=== PATIENT | male | born 1960 | race Caucasian/White ===

== ENCOUNTER → 2017-12-13 | Outpatient (CLI) | payer BC ==
[2017-12-13 10:11] LABS: Basophils # (A) 0.1 k/uL (0-0.2); Basophils % (A) 1 %; Eosinophils # (A) 0.5 k/uL (0-0.7); Eosinophils % (A) 5 %; HCT 43.9 % (39.0-53.0); HGB 14.7 gm/dL (13.0-17.5); Lymphocytes # (A) 2.1 k/uL (1.0-4.8); Lymphocytes % (A) 24 %; MCHC 33.5 g/dL (31.0-37.0); MCV 92.5 fL (80.0-100.0); Mean Platelet Volume 8.4; Monocytes # (A) 0.5 k/uL (0-1.0); Monocytes % (A) 6 %; Neutrophils # (A) 5.3 k/uL (1.3-7.7); Neutrophils % (A) 62 %; Platelet Count 242 k/uL (150-450); RBC 4.75 m/uL (4.30-5.90); RDW 12.3 % (11.5-15.5); WBC 8.5 k/uL (3.8-10.6)
[2017-12-13 10:36] LABS: ALT 38 U/L (21-72); AST 28 U/L (17-59); Alkaline Phosphatase 51 U/L (38-126); Anion Gap 10 mmol/L; Blood Urea Nitrogen 17 mg/dL (9-20); Calcium 9.6 mg/dL (8.4-10.2); Carbon Dioxide 28 mmol/L (22-30); Chloride 106 mmol/L (98-107); Cholesterol 132 mg/dL (<200); Glucose 86 mg/dL (74-99); HDL Cholesterol 35 mg/dL (40-60); LDL Cholesterol,Calculated 70 mg/dL (0-99); Potassium 4.8 mmol/L (3.5-5.1); Sodium 144 mmol/L (137-145); Total Bilirubin 0.6 mg/dL (0.2-1.3); Total Protein 6.9 g/dL (6.3-8.2); Triglycerides 136 mg/dL (<150)
[2017-12-13 10:49] LABS: T4, Free (Free Thyroxine) 1.05 ng/dL (0.78-2.19)
[2017-12-13 11:02] LABS: Prostate Specific Antigen 0.14 ng/mL (0.00-4.00)
== END | disposition home or self-care (01) ==
LOC: LABWHC1 08:52
PROVIDERS: ATTEND Internal Medicine
DX: Z00.00 Encounter for general adult medical examination without abnormal findings (principal); I10 Essential (primary) hypertension; E78.5 Hyperlipidemia, unspecified
CPT/HCPCS: 36415; 80053; 80061; 84153; 84439; 84443; 85025

== ENCOUNTER → 2019-01-09 | Outpatient (CLI) | payer BC ==
[2019-01-09 09:00] LABS: Basophils % (A) 0 %; Eosinophils # (A) 0.4 k/uL (0-0.7); Eosinophils % (A) 6 %; HGB 14.4 gm/dL (13.0-17.5); Lymphocytes # (A) 1.7 k/uL (1.0-4.8); Lymphocytes % (A) 25 %; MCV 93.9 fL (80.0-100.0); Mean Platelet Volume 8.1; Monocytes # (A) 0.3 k/uL (0-1.0); Monocytes % (A) 4 %; Neutrophils # (A) 4.3 k/uL (1.3-7.7); Neutrophils % (A) 62 %; Platelet Count 228 k/uL (150-450); RBC 4.79 m/uL (4.30-5.90); RDW 13.3 % (11.5-15.5); WBC 6.9 k/uL (3.8-10.6)
[2019-01-09 10:46] LABS: Erythrocyte Sedimentation Rate 10 mm/hr (0-15)
[2019-01-09 18:11] LABS: Albumin 4.3 g/dL (3.80-4.90); Albumin/Globulin Ratio 2.26 (1.60-3.17); Anion Gap 5.5 mmol/L (4.00-12.00); Calcium 9.5 mg/dL (8.7-10.3); Carbon Dioxide 28.5 mmol/L (21.6-31.8); Globulin 1.9 g/dL (1.6-3.3); Potassium 5.1 mmol/L (3.5-5.5); Total Bilirubin 0.5 mg/dL (0.3-1.2); Total Protein 6.2 g/dL (6.2-8.2)
[2019-01-09 18:18] LABS: T4, Free (Free Thyroxine) 1.2 ng/dL (0.80-1.80)
== END | disposition home or self-care (01) ==
LOC: LABWHC1 08:20
PROVIDERS: ATTEND Internal Medicine
DX: Z00.00 Encounter for general adult medical examination without abnormal findings (principal); E78.5 Hyperlipidemia, unspecified; I10 Essential (primary) hypertension; Z12.5 Encounter for screening for malignant neoplasm of prostate
CPT/HCPCS: 86803; 84439; 80061; 80053; 85652; 84443; 85025; 36415; G0103

== ENCOUNTER → 2019-03-23 | Outpatient (CLI) | payer BC ==
--- NOTE | 2019-03-23 20:01 | MR ---
EXAMINATION TYPE: MR knee LT wo con DATE OF EXAM: 03/23/2019 COMPARISON: Outside left knee x-ray March 12, 2019 HISTORY: Left knee pain per order. Pain and swelling per patient. TECHNIQUE: Multiplanar, multisequence images of the knee is performed without IV contrast. FINDINGS: MEDIAL MENISCUS: Increased linear signal anterior and posterior horns is present. Increased signal po sterior horn has oblique course extending to inferior articular surface sagittal image 25. Medial ext rusion of medial meniscus noted on coronal images. LATERAL MENISCUS: Anterior and posterior horns are intact without tear. CRUCIATE LIGAMENTS: The anterior and posterior cruciate ligaments are intact and unremarkable. COLLATERAL LIGAMENTS: The medial collateral ligament and lateral collateral ligament complex are inta ct. Mild to moderate increased fluid signal surrounds the medial collateral ligament. EXTENSOR MECHANISM: Visualized quadriceps and patellar tendons are intact. EFFUSION: No significant suprapatellar joint effusion. POPLITEAL CYST: Tiny popliteal/phillip cyst noted sagittal image 24. TRICOMPARTMENT SPACES: Mild tricompartment joint space loss without significant spurring CARTILAGE: No significant chondromalacia patella. Tricompartment articular cartilage is fairly well p reserved BONE MARROW SIGNAL: No focal abnormal marrow signal is appreciated. OTHER: No additional significant abnormality is appreciated. IMPRESSION: 1. Mild MCL sprain injury. 2. Oblique full-thickness tear posterior horn medial meniscus. 3. Intrasubstance tear anterior horn medial meniscus. 4. Mild tricompartmental degenerative changes. 5. Tiny popliteal cyst.
== END | disposition home or self-care (01) ==
LOC: RADMRIMAIN 16:31
PROVIDERS: ATTEND Orthopaedic Surgery
DX: S83.412A Sprain of medial collateral ligament of left knee, initial encounter (principal); S83.242A Other tear of medial meniscus, current injury, left knee, initial encounter; M17.12 Unilateral primary osteoarthritis, left knee; M71.22 Synovial cyst of popliteal space [Baker], left knee

== ENCOUNTER → 2019-03-30 | Outpatient (CLI) | payer BC ==
[2019-03-30 15:39] LABS: Basophils # (A) 0.1 k/uL (0-0.2); Basophils % (A) 1 %; Eosinophils # (A) 0.5 k/uL (0-0.7); Eosinophils % (A) 6 %; HCT 40.2 % (39.0-53.0); HGB 13.1 gm/dL (13.0-17.5); Lymphocytes % (A) 25 %; MCHC 32.6 g/dL (31.0-37.0); Mean Platelet Volume 7.9; Monocytes # (A) 0.4 k/uL (0-1.0); Monocytes % (A) 6 %; Neutrophils # (A) 4.9 k/uL (1.3-7.7); Neutrophils % (A) 61 %; Platelet Count 233 k/uL (150-450); RBC 4.22 m/uL (4.30-5.90); RDW 13.2 % (11.5-15.5); WBC 8.1 k/uL (3.8-10.6)
[2019-03-30 15:59] LABS: Potassium 5.1 mmol/L (3.5-5.1)
--- NOTE | 2019-03-30 16:02 | XR ---
EXAMINATION TYPE: XR chest 2V DATE OF EXAM: 03/30/2019 COMPARISON: NONE TECHNIQUE: PA and lateral views submitted. HISTORY: Presurgical testing FINDINGS: The lungs are clear and there is no pneumothorax, pleural effusion, or focal pneumonia. Hypertrophi c change of the spine. No overt failure. Biapical pleural thickening. IMPRESSION: 1. No acute process.
== END | disposition home or self-care (01) ==
LOC: LABWHC1 15:11
PROVIDERS: ATTEND Orthopaedic Surgery
DX: Z01.818 Encounter for other preprocedural examination (principal); M23.92 Unspecified internal derangement of left knee; Z01.812 Encounter for preprocedural laboratory examination
CPT/HCPCS: 36415; 71046; 80051; 85025; 93005

== ENCOUNTER 2019-04-06 07:15 | Day surgery (SDC) | payer BC ==
[2019-03-31 15:37] VITALS: BMI 32.1
--- NOTE | 2019-04-05 10:57 | HP ---
HISTORY AND PHYSICAL CHIEF COMPLAINT: Left knee pain. 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 It is worsening recently. He notes anterior and medial pain when getting up from a seated position along with prolonged walking. He notes intermittent giving way. He has tried medications without much relief. PAST MEDICAL HISTORY: Significant for hypertension and hypercholesterolemia. PAST SURGICAL HISTORY: Negative. CURRENT MEDICATIONS: 1. Ibuprofen. 2. Losartan. 3. Metoprolol. 4. Simvastatin. ALLERGIES: He denies drug allergies. FAMILY HISTORY: Significant for COPD. SOCIAL HISTORY: Significant for previous tobacco use in addition to social alcohol use. REVIEW OF SYSTEMS: Sixteen-point review of systems otherwise reviewed and is noncontributory. PHYSICAL EXAMINATION: On examination, the patient is approximately 5 feet 11 inches, 235 pounds of endomorphic habitus. HEENT exam is nonfocal. Neck is supple. He has painless passive motion of his left hip. Straight leg raise is negative. Active motion left knee -8 to 125 degrees of flexion. He has a trace effusion. He is tender about the medial joint line. Collaterals are stable, Jadiel's negative, Nir's elicits medial pain. His distal neurovascular exam appears intact in the left lower extremity. MRI report left knee 03/23/2019 shows a posterior medial meniscal tear. IMPRESSION: Internal derangement left knee with symptomatic medial meniscal tear. RECOMMENDATIONS: I talked to the patient at length regarding his condition along with treatment options. At this point, he is quite symptomatic, having pain and mechanical symptoms. After thorough discussion, he opts to proceed with surgery. We will plan to proceed with arthroscopic evaluation of his left knee with possible partial medial meniscectomy. We will likely perform that as an outpatient procedure. Risks and benefits were discussed at length in layman's terms. MMODL / IJN: [id number] /
[~2019-04-06 07:15] MED LIST: DEXAMETHASONE SOD PHOSPHATE 10 MG/ML 1 ML VIAL IV ONE; HYDROmorphone 0.5 MG/0.5 ML SYRINGE IVP PRN; LACTATED RINGERS 1,000 ML IV SCH; LIDOCAINE 1% 20 ML VIAL (10MG/ML) FOR IV START INTRADERMA PRN; MIDAZOLAM 2 MG/2 ML VIAL IV PRN; ONDANSETRON 4 MG/2 ML VIAL IVP ONE; SCOPOLAMINE 1.5MG/72HR PATCH TRANSDERM ONE
[2019-04-06] MEDS ORDERED: KETOROLAC 30 MG/ML 1 ML VIAL ONE (08:18)
[2019-04-06] MEDS ORDERED: fentaNYL (PF) 50 MCG/ML 2 ML AMP ONE (08:18)
[2019-04-06] MEDS ORDERED: hydrALAZINE HCL 20 MG/ML 1 ML VIAL ONE (08:18)
[2019-04-06] MEDS ORDERED: PROPOFOL 10 MG/ML 20 ML VIAL IV ONE (08:18)
[2019-04-06] MEDS ORDERED: LIDOCAINE 1% INJ 10MG/ML (20 ML MDV) ONE (08:18)
[2019-04-06] MEDS ORDERED: MIDAZOLAM 2 MG/2 ML VIAL ONE (08:18)
[2019-04-06] MEDS ORDERED: EPINEPHrine (PF) 1 ML in SODIUM CHLORIDE 0.9% IRRIGATIO 3,000 ML IRRIGATION ONE ×4 (08:40)
--- NOTE | 2019-04-06 09:03 | P.OP ---
Date of Procedure: 04/06/19 Preoperative Diagnosis: Left knee internal derangement Postoperative Diagnosis: Left knee posterior medial meniscal tear/reactive synovitis of the medial, lateral, and patellofemoral compartments Procedure(s) Performed: Left knee arthroscopic partial medial meniscectomy/partial synovectomy of the medial, lateral, and patellofemoral compartments Anesthesia: LESLEY Surgeon: Kaushik Jacobs Estimated Blood Loss (ml): 10 Pathology: none sent Condition: stable Disposition: PACU Indications for Procedure: The patient's 58-year-old male presents with progressive left knee pain and mechanical symptoms despite conservative measures. A discussion of the risks and benefits of operative intervention versus continued conservative measures was made with patient. He opted to proceed with surgery. Operative risks to include infection, neurovascular injury, development of blood clots, possible incomplete resolution of symptoms, possible worsening of symptoms and need for subsequent procedures was discussed. Informed consent was obtained. Operative Findings: As below Description of Procedure: The patient was brought to the operating room, and after induction of general anesthesia examined the left knee. Collaterals were stable, Jadiel was negative, and posterior drawer was negative. The left lower extremity was prepped and draped in a normal fashion. A superior lateral portal was made through a 3 mm skin incision superior and lateral to the patella. This was used for outflow. A lateral portal was made through a 5 mm vertical skin incision lateral to the patella tendon above the joint line. Diagnostic arthroscopy was performed. On inspection of the medial compartment, and oblique tear involving the posterior horn of the medial meniscus was noted. This was debrided back to stable base with straight baskets and a motorized shaver. Grade 2 chondral changes were noted involving the distal lateral portion the medial femoral condyle. Reactive synovitis involving anterior medial compartment was debrided with a motorized shaver. On inspection of the notch, the anterior cruciate ligament appeared to be intact. On inspection of the lateral compartment no significant cartilage or meniscal pathology was noted. Reactive synovitis involving anterior lateral compartment was debrided with a motorized shaver. On inspection of the patellofemoral articulation a 2 chondral changes were noted diffusely, however there was no loose chondral fragments. Reactive synovitis involving the patellofemoral articulation was debrided with motorized shaver. The gutters were clear debris. The knee was then thoroughly irrigated. The portals were closed with Steri-Strips. A sterile dressing was applied in addition to a compression stocking. The patient was awoken from general anesthesia and transferred to recovery room in good condition. Blood loss was estimated at 10 mL. No complications were incurred.
[2019-04-06 09:10] VITALS: TEMP 97.6
[2019-04-06] MEDS ORDERED: hydrALAZINE HCL 20 MG/ML 1 ML VIAL IVP ONE (09:12)
[2019-04-06 09:37] VITALS: RESP 18
[2019-04-06 10:02] VITALS: BP 160/95; PULSE 78
== END 2019-04-06 10:26 | disposition home or self-care (01) ==
LOC: OR 07:15
PROVIDERS: ATTEND Orthopaedic Surgery
DX: S83.242A Other tear of medial meniscus, current injury, left knee, initial encounter (principal); M65.862 Other synovitis and tenosynovitis, left lower leg; X58.XXXA Exposure to other specified factors, initial encounter; G47.33 Obstructive sleep apnea (adult) (pediatric); Z87.891 Personal history of nicotine dependence; I10 Essential (primary) hypertension; E78.00 Pure hypercholesterolemia, unspecified; Z79.1 Long term (current) use of non-steroidal anti-inflammatories (NSAID); Z79.899 Other long term (current) drug therapy; Z82.5 Family history of asthma and other chronic lower respiratory diseases
CPT/HCPCS: 29881; 29876; 84132; J2250; J0360; J1100; J0690; J2405; J0171; J2001; J3010; J1885; J2704

== ENCOUNTER → 2019-05-05 | Outpatient (CLI) | payer BC ==
[2019-05-05 16:59] LABS: African American GFR (CKD) 114.1 (60.0-200.0); Albumin 4.4 g/dL (3.80-4.90); Albumin/Globulin Ratio 2.32 (1.60-3.17); Anion Gap 7.3 mmol/L (4.00-12.00); BUN/Creat Ratio 17.5 Ratio (12.00-20.00); Calcium 9.7 mg/dL (8.7-10.3); Carbon Dioxide 29.7 mmol/L (21.6-31.8); Globulin 1.9 g/dL (1.6-3.3); Potassium 4.3 mmol/L (3.5-5.5); Total Bilirubin 0.8 mg/dL (0.2-1.2); Total Protein 6.3 g/dL (6.2-8.2)
== END | disposition home or self-care (01) ==
LOC: LABWHC1 08:45
PROVIDERS: ATTEND Internal Medicine
DX: I10 Essential (primary) hypertension (principal); E78.5 Hyperlipidemia, unspecified
CPT/HCPCS: 36415; 80053

== ENCOUNTER → 2019-05-11 | Outpatient (CLI) | payer BC ==
--- NOTE | 2019-05-11 20:04 | PN ---
PROGRESS NOTE This is a 58-year-old male patient coming in for a compliance check regarding obstructive sleep apnea. The patient was diagnosed having severe SELWYN with an AHI of 52 and the patient was treated with a CPAP pressure of 14 cm of water. Currently the patient is using an AirFit N30i medium-sized nose mask. He feels great. Sleep quality has improved. He is much more refreshed and alert during the day. Compliancy data shows an average CPAP use of 5.9 hours per night with CPAP use for more than 4 hours . Leak is 55 L/minute. AHI is down to 3.4. Sometimes he is feeling that the pressure is quite high and he is asking for adjustments. For the most part, he is able to tolerate the treatment without any major difficulties. His Victoria score is down to 7. REVIEW OF SYSTEMS: Fourteen-point review of systems was done. Positive findings were all mentioned above in the history of present illness. PHYSICAL EXAMINATION: VITAL SIGNS: BP is 133/84, pulse 84, respirations 16, temperature 98.4. Weight is 233. Saturation 98% on room air. GENERAL APPEARANCE: Calm, comfortable. HEAD: Atraumatic, normocephalic. Mallampati class IV. LUNGS: Clear to auscultation. HEART: Heart sounds are regular rate and rhythm. Normal S1, S2. No S3, S4. No murmurs. ABDOMEN: Soft, nontender. No organomegaly. EXTREMITIES: No edema. No cyanosis or clubbing. NEUROLOGIC: Alert and oriented x3. No focal neurological deficits. IMPRESSION: 1. Severe obstructive sleep apnea; apnea/hypopnea index of 52; and the patient is currently undergoing CPAP therapy at a pressure of 14; successful treatment and the patient is compliant. 2. Hypersomnia, recovered. 3. Hypertension. 4. Hyperlipidemia. 5. Degenerative arthritis. PLAN: 1. Switch this patient to an APAP, minimum of 7, maximum of 14, as to allow the patient to experience lower pressure if needed. 2. Continue the AirFit N30i medium-sized nose mask. 3. Encourage weight loss. 4. Implement good sleep hygiene measures. 5. Will continue to follow and make further recommendations if needed in the future. Otherwise, the patient will see me back in a year's time in followup. MMODL / IJN: [id number] /
== END ==
LOC: SLEEP 15:26
PROVIDERS: ATTEND Internal Medicine Critical Care Medicine
DX: G47.33 Obstructive sleep apnea (adult) (pediatric) (principal); I10 Essential (primary) hypertension; E78.5 Hyperlipidemia, unspecified; M19.90 Unspecified osteoarthritis, unspecified site; Z99.89 Dependence on other enabling machines and devices

== ENCOUNTER 2019-12-06 11:41 | Emergency (ER) | payer BC ==
[2019-12-06 12:08] LABS: Basophils % (A) 0 %; Eosinophils # (A) 0.3 k/uL (0-0.7); Eosinophils % (A) 3 %; HCT 43.6 % (39.0-53.0); HGB 14.6 gm/dL (13.0-17.5); Lymphocytes # (A) 1.9 k/uL (1.0-4.8); Lymphocytes % (A) 21 %; MCH 31.5 pg (25.0-35.0); MCHC 33.5 g/dL (31.0-37.0); Mean Platelet Volume 8.2; Monocytes # (A) 0.4 k/uL (0-1.0); Monocytes % (A) 5 %; Neutrophils # (A) 6.3 k/uL (1.3-7.7); Neutrophils % (A) 69 %; Platelet Count 249 k/uL (150-450); RBC 4.64 m/uL (4.30-5.90); RDW 12.1 % (11.5-15.5); WBC 9.2 k/uL (3.8-10.6)
[2019-12-06 12:09] LABS: Glucose,Whole Blood 169 mg/dL (75-99)
[2019-12-06 12:18] LABS: ALT 28 U/L (4-49); AST 26 U/L (17-59); African American GFR (CKD) >90 (>60 ml/min/1.73 sqM); Albumin 4.2 g/dL (3.5-5.0); Alkaline Phosphatase 52 U/L (38-126); Anion Gap 10 mmol/L; Blood Urea Nitrogen 16 mg/dL (9-20); Calcium 9.4 mg/dL (8.4-10.2); Carbon Dioxide 24 mmol/L (22-30); Chloride 102 mmol/L (98-107); Creatine Kinase 82 U/L (55-170); Glucose 158 mg/dL (74-99); Non-African American GFR(CKD) >90 (>60 ml/min/1.73 sqM); Potassium 3.9 mmol/L (3.5-5.1); Sodium 136 mmol/L (137-145); Total Bilirubin 0.5 mg/dL (0.2-1.3); Total Protein 7.2 g/dL (6.3-8.2)
[2019-12-06 12:25] LABS: INR 0.9 (<1.2); Partial Thromboplastin Time 22.4 sec (22.0-30.0); Prothrombin Time 9.5 sec (9.0-12.0)
[2019-12-06] MEDS ORDERED: levETIRAcetam IV 1,000 MG in SALINE 1 100ML.BAG IVPB STA (12:25)
--- NOTE | 2019-12-06 12:47 | XR ---
EXAMINATION TYPE: XR chest 2V DATE OF EXAM: 12/06/2019 COMPARISON: 03/30/2019 HISTORY: 59-year-old male confusion, altered mental status TECHNIQUE: AP and lateral views FINDINGS: Heart normal size. Aorta and pulmonary vascularity within normal limits. Low lung volumes and crowded vascular markings. Hazy densities related to patient body habitus and portable technique. No jos c onsolidation or pleural effusion seen. IMPRESSION: Some hypoventilatory changes. No definite acute cardiopulmonary process.
[2019-12-06] MEDS ORDERED: fentaNYL (PF) 50 MCG/ML 2 ML AMP IVP STA (12:57)
--- NOTE | 2019-12-06 12:57 | CT ---
EXAMINATION TYPE: CT brain wo con for TPA DATE OF EXAM: 12/06/2019 COMPARISON: None HISTORY: 59-year-old male Neuro deficit, acute, stroke suspected TECHNIQUE: Examination was done in axial plane without intravenous contrast. Coronal and sagittal r econstructions performed. CT DLP: 1096 mGycm Automated exposure control for dose reduction was used. FINDINGS: There is abnormal hypodensity with sulcal effacement and mass effect involving the left frontal lobe and frontoparietal junction. Mass effect causes asymmetric effacement of the left lateral ventricle. No effacement of basal subarachnoid cisterns. There is a somewhat rounded area measuring 2.9 cm along the posterior lateral left frontal lobe, axial image 41 that could represent edematous gyra. No midline shift. No acute intracranial hemorrhage. No extra-axial fluid collection. No hydrocephalus . Moderate lobulated mucosal thickening partially seen within the left maxillary sinus. Orbits and glob es are intact. Mastoid air cells are well pneumatized. IMPRESSION: Edematous change throughout the left frontal lobe and left frontoparietal junction. Mass effect parti ally effaces the left lateral ventricle. No midline shift or herniation. No acute intracranial hemorr martha. Findings could be secondary to acute MCA territory infarct or underlying mass with vasogenic ed divya.
--- NOTE | 2019-12-06 13:23 | CT ---
EXAMINATION TYPE: CT angio head neck DATE OF EXAM: 12/06/2019 COMPARISON: CT brain same day HISTORY: 59-year-old male neurologic deficits, acute stroke suspected. TECHNIQUE: Contiguous axial scanning of the head and neck performed with IV Contrast, patient injecte d with 65 mL of Isovue 370. Delayed images through the kidneys were obtained. Coronal/sagittal recons tructions performed. CT DLP: 742.2 mGycm Automated exposure control for dose reduction was used. FINDINGS: NECK: Aberrant direct takeoff of the left vertebral artery directly from the aortic arch. The vertebral art eries are codominant and patent throughout their course. The right common and internal carotid arteries are patent. Tortuous bilateral upper cervical internal carotid arteries. HEAD: Vertebral and basilar arteries are patent. Remainder of the posterior circulation is patent. Internal carotid arteries are patent. The M1 and M2 branches of the left MCA appear patent. Anterior cerebral arteries are patent. No aneurysmal change is seen. IMPRESSION: 1. NECK: ABERRANT LEFT VERTEBRAL ARTERY WHICH HAS ITS ORIGIN DIRECTLY FROM THE AORTIC ARCH. THE CAROT ID AND VERTEBRAL ARTERIES OF THE NECK ARE WIDELY PATENT. 2. HEAD: NO LARGE VESSEL INTRACRANIAL ARTERIAL OCCLUSION OR ANEURYSMAL CHANGE.
--- NOTE | 2019-12-06 13:28 | ED ---
Seizure HPI - General Chief Complaint: Seizure Stated Complaint: Seizure Time Seen by Provider: 12/06/19 11:41 Source: EMS Mode of arrival: EMS - History of Present Illness Initial Comments: The patient is a 59 year old male with past medical history of hypertension who presents to the emergency room with reported new onset seizure. provided the history. She states the patient was outside working on his car when she heard her knocking on the door. She went to the door and found the patient altered. He ended up landing onto the ground and a pushup position. She was foaming at the mouth and his eyes rolled back. He had full tonic-clonic shaking which lasted for a few minutes. She did call EMS. By the time EMS arrived the patient was post ictal. He was extremely confused to questioning. He did have some right-sided weakness during EMS transfer which quickly resolved. The patient does arrive alert. No history of CVA in the past. Denies previous seizure history. The patient does not drink. Denies illicit drug use. Vitals were stable. The remainder of the HPI is limited because the patient's current condition - Related Data Home Medications Medication Instructions Recorded Confirmed Metoprolol Succinate (ER) [Toprol 50 mg PO DAILY 10/17/15 12/06/19 Xl] Simvastatin 40 mg PO HS 10/17/15 12/06/19 Losartan/Hydrochlorothiazide 1 tab PO DAILY 12/06/19 12/06/19 [Losartan-Hctz 100-25 mg Tab] amLODIPine [Norvasc] 5 mg PO DAILY 12/06/19 12/06/19 Allergies Allergy/AdvReac Type Severity Reaction Status Date / Time No Known Allergies Allergy Verified 12/06/19 13:08 Review of Systems ROS Statement: Those systems with pertinent positive or pertinent negative responses have been documented in the HPI. ROS Other: All systems not noted in ROS Statement are negative. Past Medical History Past Medical History: GERD/Reflux, Hypertension History of Any Multi-Drug Resistant Organisms: None Reported Past Surgical History: Orthopedic Surgery Past Anesthesia/Blood Transfusion Reactions: No Reported Reaction Additional Past Anesthesia/Blood Transfusion Reaction / Comment(s): no hx blood transfusion Smoking Status: Never smoker - Past Family History Father Family Medical History: Myocardial Infarction ([place]) Additional Family Medical History / Comment(s): at age 49-[place] Mother Family Medical History: No Reported History Additional Family Medical History / Comment(s): . General Exam Limitations: altered mental status General appearance: alert, in no apparent distress Head exam: Present: atraumatic, normocephalic, normal inspection Eye exam: Present: normal appearance, PERRL, EOMI. Absent: scleral icterus, conjunctival injection, periorbital swelling ENT exam: Present: normal exam, mucous membranes moist Neck exam: Present: normal inspection. Absent: tenderness, meningismus, lymphadenopathy Respiratory exam: Present: normal lung sounds bilaterally. Absent: respiratory distress, wheezes, rales, rhonchi, stridor Cardiovascular Exam: Present: regular rate, normal rhythm, normal heart sounds. Absent: systolic murmur, diastolic murmur, rubs, gallop, clicks GI/Abdominal exam: Present: soft, normal bowel sounds. Absent: distended, t enderness, guarding, rebound, rigid Extremities exam: Present: normal inspection, full ROM, normal capillary refill. Absent: tenderness, pedal edema, joint swelling, calf tenderness Back exam: Present: normal inspection Neurological exam: Present: alert, other (The patient has significant expressive aphasia. No lateralizing deficits. No dysarthria. No facial droop. Strength is symmetric) Psychiatric exam: Present: normal affect, normal mood Skin exam: Present: warm, dry, intact, normal color. Absent: rash Course Vital Signs 12/06/19 12/06/19 12/06/19 11:44 11:55 12:54 Temperature 97.9 F 97.9 F 97.2 F L Pulse Rate 98 90 91 Respiratory 20 18 22 Rate Blood Pressure 162/98 165/89 152/97 O2 Sat by Pulse 97 98 95 Oximetry 12/06/19 15:26 Temperature Pulse Rate 89 Respiratory 18 Rate Blood Pressure 145/102 O2 Sat by Pulse 96 Oximetry Medical Decision Making - Medical Decision Making Upon arrival the patient is placed into room 5. A thorough history and physical exam was performed. The patient has no lateralizing deficits however he is profoundly expressive aphasic. I activated a code stroke and discussed the case with Dr. Gamez within 5 minutes of his arrival at 11:45 am. He did agree to stroke activation and requested the patient be sent for CT with angios performed. Peripheral IV was established. Laboratory studies were conducted. Laboratory studies reveal a lactic acid 2.1 with a glucose of 158. Remainder of the laboratory studies are normal. CT of the patient's brain demonstrates edematous changes throughout the left frontal lobe and left frontal parietal junction. Mass effect partially faces the left lateral ventricle. No midline shift or herniation. No acute intracranial hemorrhage. Findings could be secondary to acute MCA territory infarct or underlying mass with vasogenic edema. CT angiography of the brain demonstrates a apparent left vertebral artery which has its origin directly from the aortic arch. The carotid and vertebral arteries of the neck are widely patent. No large vessel intracranial arterial occlusion or aneurysmal change. Chest x-ray demonstrated some hyp oventilatory changes. No definite acute cardiac pulmonary process. I discussed the case once again at [address] Dc. He recommended against TPA as he does feel that there is a mass seen on CT. He is requesting stat MRI. I called the MRI department at this time and they are able to send in a tech. I discussed the case with again with Dr. Gamez at 1254 and made him aware that the patient is going to MRI.MRI was performed and I did review this study. It demonstrates masslike areas of increased T2/flare weighted signal within the left frontal parietal junction and right thalamus. There are also a couple smaller areas along the left paramedian frontal lobe. There is associated vasogenic edema with cervical effacement particularly on the left. Maybe early rightward subfalcine herniation. I discussed the results with Dr. Jesse liu once again at 4:01 PM. The patient was given 10 mg of Decadron. He did recommend transfer to [facility]. I called and discussed the case with Dr. Gonzalez who is the emergency medicine doctor. She is able to facilitate acceptance by Dr Cruz who is the internal medicine doctor. He is currently awaiting EMS arrival and a bed number. He is in stable condition without worsening neurologic condition. - Lab Data Result diagrams: 12/06/19 11:50 12/06/19 11:50 Lab Results 12/06/19 12/06/19 12/06/19 Range/Units 11:49 11:50 11:50 WBC 9.2 (3.8-10.6) k/uL RBC 4.64 (4.30-5.90) m/uL Hgb 14.6 (13.0-17.5) gm/dL Hct 43.6 (39.0-53.0) % MCV 94.0 (80.0-100.0) fL MCH 31.5 (25.0-35.0) pg MCHC 33.5 (31.0-37.0) g/dL RDW 12.1 (11.5-15.5) % Plt Count 249 (150-450) k/uL Neutrophils % 69 % Lymphocytes % 21 % Monocytes % 5 % Eosinophils % 3 % Basophils % 0 % Neutrophils # 6.3 (1.3-7.7) k/uL Lymphocytes # 1.9 (1.0-4.8) k/uL Monocytes # 0.4 (0-1.0) k/uL Eosinophils # 0.3 (0-0.7) k/uL Basophils # 0.0 (0-0.2) k/uL PT 9.5 (9.0-12.0) sec INR 0.9 (<1.2) APTT 22.4 (22.0-30.0) sec Sodium (137-145) mmol/L Potassium (3.5-5.1) mmol/L Chloride (98-107) mmol/L Carbon Dioxide (22-30) mmol/L Anion Gap mmol/L BUN (9-20) mg/dL Creatinine (0.66-1.25) mg/dL Est GFR (CKD-EPI)AfAm (>60 ml/min/1.73 sqM) Est GFR (CKD-EPI)NonAf (>60 ml/min/1.73 sqM) Glucose (74-99) mg/dL POC Glucose (mg/dL) 169 H (75-99) mg/dL POC Glu [facility] Supervisor ID Lynn Wills Lactic Ac Sepsis Rflx Plasma Lactic Acid Isaiah (0.7-2.0) mmol/L Calcium (8.4-10.2) mg/dL Total Bilirubin (0.2-1.3) mg/dL AST (17-59) U/L ALT (4-49) U/L Alkaline Phosphatase (38-126) U/L Creatine Kinase (55-170) U/L Troponin I (0.000-0.034) ng/mL Total Protein (6.3-8.2) g/dL Albumin (3.5-5.0) g/dL 04/06/20 04/06/20 04/06/20 Range/Units 11:50 11:50 11:50 WBC (3.8-10.6) k/uL RBC (4.30-5.90) m/uL Hgb (13.0-17.5) gm/dL Hct (39.0-53.0) % MCV (80.0-100.0) fL MCH (25.0-35.0) pg MCHC (31.0-37.0) g/dL RDW (11.5-15.5) % Plt Count (150-450) k/uL Neutrophils % % Lymphocytes % % Monocytes % % Eosinophils % % Basophils % % Neutrophils # (1.3-7.7) k/uL Lymphocytes # (1.0-4.8) k/uL Monocytes # (0-1.0) k/uL Eosinophils # (0-0.7) k/uL Basophils # (0-0.2) k/uL PT (9.0-12.0) sec INR (<1.2) APTT (22.0-30.0) sec Sodium 136 L (137-145) mmol/L Potassium 3.9 (3.5-5.1) mmol/L Chloride 102 (98-107) mmol/L Carbon Dioxide 24 (22-30) mmol/L Anion Gap 10 mmol/L BUN 16 (9-20) mg/dL Creatinine 0.85 (0.66-1.25) mg/dL Est GFR (CKD-EPI)AfAm >90 (>60 ml/min/1.73 sqM) Est GFR (CKD-EPI)NonAf >90 (>60 ml/min/1.73 sqM) Glucose 158 H (74-99) mg/dL POC Glucose (mg/dL) (75-99) mg/dL POC Glu [facility] Supervisor ID Lactic Ac Sepsis Rflx Plasma Lactic Acid Isaiah 2.1 H* (0.7-2.0) mmol/L Calcium 9.4 (8.4-10.2) mg/dL Total Bilirubin 0.5 (0.2-1.3) mg/dL AST 26 (17-59) U/L ALT 28 (4-49) U/L Alkaline Phosphatase 52 (38-126) U/L Creatine Kinase 82 (55-170) U/L Troponin I <0.012 (0.000-0.034) ng/mL Total Protein 7.2 (6.3-8.2) g/dL Albumin 4.2 (3.5-5.0) g/dL 12/06/19 12/06/19 Range/Units 12:22 15:32 WBC (3.8-10.6) k/uL RBC (4.30-5.90) m/uL Hgb (13.0-17.5) gm/dL Hct (39.0-53.0) % MCV (80.0-100.0) fL MCH (25.0-35.0) pg MCHC (31.0-37.0) g/dL RDW (11.5-15.5) % Plt Count (150-450) k/uL Neutrophils % % Lymphocytes % % Monocytes % % Eosinophils % % Basophils % % Neutrophils # (1.3-7.7) k/uL Lymphocytes # (1.0-4.8) k/uL Monocytes # (0-1.0) k/uL Eosinophils # (0-0.7) k/uL Basophils # (0-0.2) k/uL PT (9.0-12.0) sec INR (<1.2) APTT (22.0-30.0) sec Sodium (137-145) mmol/L Potassium (3.5-5.1) mmol/L Chloride (98-107) mmol/L Carbon Dioxide (22-30) mmol/L Anion Gap mmol/L BUN (9-20) mg/dL Creatinine (0.66-1.25) mg/dL Est GFR (CKD-EPI)AfAm (>60 ml/min/1.73 sqM) Est GFR (CKD-EPI)NonAf (>60 ml/min/1.73 sqM) Glucose (74-99) mg/dL POC Glucose (mg/dL) (75-99) mg/dL POC Glu [facility] Supervisor ID Lactic Ac Sepsis Rflx Y Plasma Lactic Acid Isaiah 1.3 (0.7-2.0) mmol/L Calcium (8.4-10.2) mg/dL Total Bilirubin (0.2-1.3) mg/dL AST (17-59) U/L ALT (4-49) U/L Alkaline Phosphatase (38-126) U/L Creatine Kinase (55-170) U/L Troponin I (0.000-0.034) ng/mL Total Protein (6.3-8.2) g/dL Albumin (3.5-5.0) g/dL - EKG Data EKG Comments: EKG demonstrates normal sinus rhythm with a ventricular rate of 83. GA interval 178. QRS 80. QTC 440. No acute ST segment elevations or depressions concerning for ischemic changes Disposition Clinical Impression: New onset seizure, Brain mass Disposition: OTHER INSTITUTION NOT DEFINED Condition: Serious Is patient prescribed a controlled substance at d/c from ED?: No Referrals: Jesusita Maurer MD [Primary Care Provider] - 1-2 days Time of Disposition: 16:28 - Out of Hospital Transfer - Req. Specs Out of Hospital Transfer - Requested Specifics: Neurological ICU (Keri Brewer)
--- NOTE | 2019-12-06 14:58 | MR ---
EXAMINATION TYPE: MR brain wo/w con DATE OF EXAM: 12/06/2019 COMPARISON: CT brain 12/06/2019 HISTORY: 59-year-old male Seizure, abnormal CT TECHNIQUE: Multiplanar, multisequence images of the brain and brainstem were acquired before and aft er administration of 12 mL IV Gadavist. Diffusion weighted imaging is performed. FINDINGS: No increased signal on diffusion-weighted imaging. Abnormal globular T2/FLAIR weighted signal involving the left frontoparietal junction extending down into the posterior aspect of the left temporal lobe measuring up to 4.3 cm AP by 3.2 cm wide by 5.4 c m craniocaudal. The associated vasogenic edema is present. A second dominant area of focal masslike enlargement and increased signal centered within the right t halamus measuring 3.3 x 2.2 x 3.2 cm A few additional areas of focal cortical increased signal within the left paramedian frontal lobe, ax ial image 22 and 24. Asymmetric partial flattening of the left lateral ventricle. There is associated sulcal effacement throughout the left cerebral hemisphere. Possible early rightwa rd subfalcine herniation. No transtentorial herniation or effacement of basal cisterns. No hydrocephalus or extra axial fluid collection seen. Lobulated mucosal thickening floor of the left maxillary sinus. The craniocervical junction is normal. Post contrast images demonstrate no evidence of pathologic enhancement. Dural venous sinuses are pat ent. The visualized sinuses are clear and the globes are intact. IMPRESSION: 1. No abnormal signal on DWI to support acute infarct. 2. Masslike areas of increased T2/FLAIR weighted signal within the left frontoparietal junction (5.4 x 4.3 x 3.2 cm), right thalamus (3.3 cm), and a couple smaller areas along the left paramedian fronta l lobe. These have no corresponding enhancement. Some differential considerations include multifocal intermediate grade glioma, PML, PRES, encephalitis, and demyelinating disease. 3. The lack of enhancement argues against metastatic disease, infectious cerebritis, and lymphoma. Fu rther clinical correlation recommended. 4. Associated vasogenic edema with sulcal effacement particularly on the left. There may be early rig htward subfalcine herniation.
[2019-12-06 15:26] VITALS: PULSE 89; RESP 18
[2019-12-06] MEDS ORDERED: DEXAMETHASONE SOD PHOSPHATE 10 MG/ML 1 ML VIAL IV STA (15:57)
[2019-12-06 18:55] VITALS: BP 157/98; TEMP 97.9
== END 2019-12-06 20:54 | disposition other institution (70) ==
LOC: EC 11:41
DX: G93.89 Other specified disorders of brain (principal); R56.9 Unspecified convulsions; I10 Essential (primary) hypertension; Z79.899 Other long term (current) drug therapy
CPT/HCPCS: 36415; 93005; 80053; 82550; 83605; 84484; 85025; 85610; 85730; 71046; 70496; 70450; 70498; 70553; 99285; 96365; 96375 ×2; J1100; J3010; J1953; A9585; Q9967

== ENCOUNTER 2020-04-06 08:39 | Emergency (ER) | payer BC ==
[2020-04-06 08:51] VITALS: RESP 18
[2020-04-06] MEDS ORDERED: SODIUM CHLORIDE 0.9% 1,000 ML IV ONE (09:10)
[2020-04-06 09:18] LABS: Albumin 4.1 g/dL (3.5-5.0); Calcium 9.5 mg/dL (8.4-10.2); Potassium 4.3 mmol/L (3.5-5.1); Total Bilirubin 1.2 mg/dL (0.2-1.3)
[2020-04-06 09:22] LABS: Basophils % (A) 0 %; Eosinophils % (A) 0 %; HGB 15.2 gm/dL (13.0-17.5); Lymphocytes # (A) 0.5 k/uL (1.0-4.8); Lymphocytes % (A) 5 %; MCH 31.7 pg (25.0-35.0); MCHC 33.8 g/dL (31.0-37.0); MCV 93.8 fL (80.0-100.0); Monocytes # (A) 0.6 k/uL (0-1.0); Monocytes % (A) 6 %; Neutrophils # (A) 9.6 k/uL (1.3-7.7); Neutrophils % (A) 89 %; Platelet Count 185 k/uL (150-450); RDW 13.1 % (11.5-15.5); WBC 10.8 k/uL (3.8-10.6)
--- NOTE | 2020-04-06 09:25 | ED ---
General Adult HPI - General Chief complaint: Altered Mental Status Stated complaint: hypertension Time Seen by Provider: 04/06/20 08:45 Source: patient, EMS, RN notes reviewed, old records reviewed Mode of arrival: EMS Limitations: no limitations - History of Present Illness Initial comments: This is a 59-year-old male who presents emergency Department and glioblastoma and originally got radiation and chemo initially he took about a month off and then they gave him at home chemotherapy for 5 days which ended this past Friday. states ever since then he's becoming more and more fatigued to the point where he couldn't even get out of bed on his own this morning. also found him brushing his teeth but the toothbrush was about a foot from his face and he was brushing away. Patient is alert and oriented 3 and he has no complaints himself. Patient denies headache patient denies numbness weakness. Patient denies visual disturbance. Patient denies speech disturbance. Patient denies any chest pain difficulty breathing shortness of breath. Patient denies any fever chills or cough. Patient denies any abdominal pain patient denies nausea vomiting diarrhea. Patient is able to ablate previous a little unsteady on his feet which is his baseline. - Related Data Home Medications Medication Instructions Recorded Confirmed Metoprolol Succinate (ER) [Toprol 50 mg PO DAILY 10/17/15 04/06/20 Xl] Simvastatin 40 mg PO DAILY 10/17/15 04/06/20 Losartan/Hydrochlorothiazide 1 tab PO DAILY 12/06/19 04/06/20 [Losartan-Hctz 100-25 mg Tab] amLODIPine [Norvasc] 5 mg PO DAILY 12/06/19 04/06/20 Docusate [Colace] 100 mg PO DAILY 04/06/20 04/06/20 Omeprazole [PriLOSEC] 20 mg PO DAILY 04/06/20 04/06/20 levETIRAcetam [Keppra] 1,000 mg PO BID-W/MEALS 04/06/20 04/06/20 Previous Rx's Medication Instructions Recorded Dexamethasone [Decadron] 4 mg PO QAM #20 tablet 04/06/20 Allergies Allergy/AdvReac Type Severity Reaction Status Date / Time No Known Allergies Allergy Verified 04/06/20 11:11 Review of Systems ROS Statement: Those systems with pertinent positive or pertinent negative responses have been documented in the HPI. ROS Other: All systems not noted in ROS Statement are negative. Past Medical History Past Medical History: GERD/Reflux, Hypertension Additional Past Medical History / Comment(s): Brain CA History of Any Multi-Drug Resistant Organisms: None Reported Past Surgical History: Orthopedic Surgery Past Anesthesia/Blood Transfusion Reactions: No Reported Reaction Additional Past Anesthesia/Blood Transfusion Reaction / Comment(s): no hx blood transfusion Past Psychological History: No Psychological Hx Reported Smoking Status: Never smoker Past Alcohol Use History: Occasional Past Drug Use History: None Reported - Past Family History Father Family Medical History: Myocardial Infarction ([place]) Additional Family Medical History / Comment(s): at age 49-[place] Mother Family Medical History: No Reported History Additional Family Medical History / Comment(s): . General Exam - General Exam Comments Initial Comments: GENERAL: Patient is well-developed and well-nourished. Patient is nontoxic and well- hydrated and is in no acute distress. ENT: Neck is soft and supple. No significant lymphadenopathy is noted. Oropharynx is clear. Moist mucous membranes. Neck has full range of motion without eliciting any pain. EYES: The sclera were anicteric and conjunctiva were pink and moist. Extraocular movements were intact and pupils were equal round and reactive to light. Eyelids were unremarkable. PULMONARY: Unlabored respirations. Good breath sounds bilaterally. No audible rales rhonchi or wheezing was noted. CARDIOVASCULAR: There is a regular rate and rhythm without any murmurs gallops or rubs. ABDOMEN: Soft and nontender with normal bowel sounds. SKIN: Skin is clear with no lesions or rashes and otherwise unremarkable. NEUROLOGIC: Patient is alert and oriented x3. Cranial nerves II through XII are grossly intact. Motor and sensory are also intact. Normal speech, volume and content. Symmetrical smile. MUSCULOSKELETAL: Normal extremities with adequate strength and full range of motion. No lower extremity swelling or edema. No calf tenderness. LYMPHATICS: No significant lymphadenopathy is noted PSYCHIATRIC: Normal psychiatric evaluation. Limitations: no limitations Course Vital Signs 04/06/20 04/06/20 04/06/20 08:43 08:57 08:58 Temperature 99.1 F Pulse Rate 111 H 105 H Pulse Rate [ 105 H Coating Engineer ] Respiratory 18 18 Rate Blood Pressure 134/96 O2 Sat by Pulse 95 93 L 95 Oximetry 04/06/20 10:11 Temperature Pulse Rate 95 Pulse Rate [ Coating Engineer ] Respiratory 18 Rate Blood Pressure 123/87 O2 Sat by Pulse 98 Oximetry Medical Decision Making - Medical Decision Making EKG shows sinus tachycardia at 108 bpm MO interval is on a 58 QRS 72 QT interval 344 QTC is 460. Patient's EKG shows no ST segment elevation or depression. CT of the scan shows progression of the metastatic brain tumor also showing some vasogenic edema. I called the patient's oncologist oncologist partner answered and he wanted the patient to get Decadron in the emergency department which was already done patient received 10 mg. The oncologist wanted the patient to take 8 mg of Decadron daily until he can follow-up with his regular oncologist. We also tested her urine because there was a note in the oncologist chart that the patient might have urinary tract infection. - Lab Data Result diagrams: 04/06/20 08:54 04/06/20 08:54 Lab Results 04/06/20 04/06/20 04/06/20 Range/Units 08:54 08:54 11:37 WBC 10.8 H (3.8-10.6) k/uL RBC 4.80 (4.30-5.90) m/uL Hgb 15.2 (13.0-17.5) gm/dL Hct 45.0 (39.0-53.0) % MCV 93.8 (80.0-100.0) fL MCH 31.7 (25.0-35.0) pg MCHC 33.8 (31.0-37.0) g/dL RDW 13.1 (11.5-15.5) % Plt Count 185 (150-450) k/uL Neutrophils % 89 % Lymphocytes % 5 % Monocytes % 6 % Eosinophils % 0 % Basophils % 0 % Neutrophils # 9.6 H (1.3-7.7) k/uL Lymphocytes # 0.5 L (1.0-4.8) k/uL Monocytes # 0.6 (0-1.0) k/uL Eosinophils # 0.0 (0-0.7) k/uL Basophils # 0.0 (0-0.2) k/uL Sodium 136 L (137-145) mmol/L Potassium 4.3 (3.5-5.1) mmol/L Chloride 100 (98-107) mmol/L Carbon Dioxide 21 L (22-30) mmol/L Anion Gap 15 mmol/L BUN 25 H (9-20) mg/dL Creatinine 1.20 (0.66-1.25) mg/dL Est GFR (CKD-EPI)AfAm 76 (>60 ml/min/1.73 sqM) Est GFR (CKD-EPI)NonAf 66 (>60 ml/min/1.73 sqM) Glucose 169 H (74-99) mg/dL Calcium 9.5 (8.4-10.2) mg/dL Total Bilirubin 1.2 (0.2-1.3) mg/dL AST 32 (17-59) U/L ALT 37 (4-49) U/L Alkaline Phosphatase 57 (38-126) U/L Total Protein 7.0 (6.3-8.2) g/dL Albumin 4.1 (3.5-5.0) g/dL Urine Color Yellow Urine Appearance Clear (Clear) Urine pH 6.0 (5.0-8.0) Ur Specific Jewett 1.029 (1.001-1.035) Urine Protein 1+ H (Negative) Urine Glucose (UA) Negative (Negative) Urine Ketones 1+ H (Negative) Urine Blood Negative (Negative) Urine Nitrite Negative (Negative) Urine Bilirubin Negative (Negative) Urine Urobilinogen <2.0 (<2.0) mg/dL Ur Leukocyte Esterase Negative (Negative) Urine WBC 1 (0-5) /hpf Ur Squamous Epith Cells <1 (0-4) /hpf Urine Bacteria Rare H (None) /hpf Urine Mucus Few H (None) /hpf Disposition Clinical Impression: Glioblastoma multiforme, Vasogenic brain edema Disposition: HOME SELF-CARE Condition: Good Prescriptions: Dexamethasone [Decadron] 4 mg PO QAM #20 tablet Is patient prescribed a controlled substance at d/c from ED?: No Referrals: Jesusita Maurer MD [Primary Care Provider] - 1-2 days Time of Disposition: 11:59
--- NOTE | 2020-04-06 09:39 | CT ---
EXAMINATION TYPE: CT brain wo con DATE OF EXAM: 04/06/2020 HISTORY: hypertension, altered mental status, history of brain CA CT DLP: 1070.4 mGycm. Automated Exposure Control for Dose Reduction was Utilized. TECHNIQUE: CT scan of the head is performed without contrast. COMPARISON: CT brain December 06, 2019. FINDINGS: There is no acute intracranial hemorrhage or midline shift identified. No new hydrocephal us. Globes are intact and visualized sinuses are clear. New fairly large area of vasogenic edema and sulcal effacement involving the right temporal lobe near axial image 19 along with additional area of involvement left frontal lobe near midline axial image 27. Enlarged left parietal slightly hyperdens e 3.4 cm lesion long axis axial image 26 with surrounding vasogenic edema. Small area of CSF superior to this coronal image 40. New hyperdensity and expansion of the right thalamus axial image 26. IMPRESSION: Findings consistent with metastatic brain cancer progression with new and enlarging areas of mass and mass effect/vasogenic edema noted. Findings can be better characterized with contrast-en hanced MRI if desired.
[2020-04-06] MEDS ORDERED: DEXAMETHASONE SOD PHOSPHATE 10 MG/ML 1 ML VIAL IV STA (09:40)
[2020-04-06] MEDS ORDERED: LIDOCAINE URO-JET JELLY 2% 5 ML KIT URETHRAL ONE (11:27)
[2020-04-06] MEDS ORDERED: SODIUM CHLORIDE 0.9% 1,000 ML IV STA (11:51)
[2020-04-06 11:57] LABS: Appearance,Urine Clear (Clear); Bacteria,Urine Rare /hpf; Bilirubin,Urine Negative (Negative); Blood,Urine Negative (Negative); Color,Urine Yellow; Glucose,Urine (UA) Negative (Negative); Ketones,Urine 1+ (Negative); Leukocyte Esterase,Urine Negative (Negative); Mucus,Urine Few /hpf; Nitrite,Urine Negative (Negative); Protein,Urine 1+ (Negative); Specific Gravity,Urine 1.029 (1.001-1.035); Squamous Epithelial Cell,Urine <1 /hpf (0-4); Urobilinogen,Urine <2.0 mg/dL (<2.0); WBC,Urine 1 /hpf (0-5)
[2020-04-06 12:12] VITALS: BP 123/82; PULSE 82; TEMP 98.5
== END 2020-04-06 12:15 | disposition home or self-care (01) ==
LOC: EC 08:39
DX: C71.9 Malignant neoplasm of brain, unspecified (principal); R00.0 Tachycardia, unspecified; K21.9 Gastro-esophageal reflux disease without esophagitis; I10 Essential (primary) hypertension; Z79.899 Other long term (current) drug therapy; Z92.21 Personal history of antineoplastic chemotherapy
CPT/HCPCS: 36415; 93005; 80053; 85025; 81001; 70450; 99285; 96374; 96361; J1100

== ENCOUNTER → 2020-04-17 | Outpatient (CLI) | payer BC ==
[2020-04-17 11:09] LABS: Basophils # (A) 0.1 k/uL (0-0.2); Basophils % (A) 0 %; Eosinophils % (A) 0 %; HCT 44.3 % (39.0-53.0); HGB 14.6 gm/dL (13.0-17.5); Lymphocytes % (A) 9 %; MCH 31.5 pg (25.0-35.0); MCHC 32.8 g/dL (31.0-37.0); MCV 95.9 fL (80.0-100.0); Monocytes # (A) 0.5 k/uL (0-1.0); Monocytes % (A) 4 %; Neutrophils # (A) 9.7 k/uL (1.3-7.7); Neutrophils % (A) 86 %; Platelet Count 237 k/uL (150-450); RBC 4.62 m/uL (4.30-5.90); RDW 13.2 % (11.5-15.5); WBC 11.3 k/uL (3.8-10.6)
[2020-04-17 16:27] LABS: African American GFR (CKD) 84.7 (60.0-200.0); Albumin/Globulin Ratio 1.82 (1.60-3.17); Anion Gap 7.6 mmol/L (4.00-12.00); BUN/Creat Ratio 20.91 Ratio (12.00-20.00); Calcium 9.5 mg/dL (8.7-10.3); Carbon Dioxide 26.4 mmol/L (21.6-31.8); Globulin 2.2 g/dL (1.6-3.3); Non-African American GFR(CKD) 73.1 (60.0-200.0); Potassium 4.1 mmol/L (3.5-5.5); Total Bilirubin 0.6 mg/dL (0.3-1.2); Total Protein 6.2 g/dL (6.2-8.2)
== END | disposition home or self-care (01) ==
LOC: LABWHC1 09:19
PROVIDERS: ATTEND Psychiatry & Neurology Neurology
DX: C71.9 Malignant neoplasm of brain, unspecified (principal); R39.89 Other symptoms and signs involving the genitourinary system
CPT/HCPCS: 36415; 80053; 85025

== ENCOUNTER 2020-09-18 16:27 | Inpatient (IN) | payer BC ==
--- NOTE | 2020-09-18 17:07 | ED ---
SOB HPI - General Chief Complaint: Shortness of Breath Stated Complaint: R/O PE Time Seen by Provider: 09/18/20 16:42 Source: patient Mode of arrival: wheelchair Limitations: no limitations - History of Present Illness Initial Comments: 60-year-old male past medical history of stage IV brain cancer who presents to the emergency department with reported shortness of breath. Patient was diagnosed in November this year and follows with a neurologist out of [facility]. He is currently undergoing chemotherapy. states that he has had some shortness of breath over the past week. He normally is fatigued after chemo however states that this is worse than normal. Patient did not receive his last chemo treatment because his platelets were low. They called their neurologist Dr. Harrell out [facility] who was worried about a PE because of his exertional dyspnea. She recommended that he get a CT which was supposed to be performed tomorrow. states that she found the patient slumped over in his chair and decided to bring him tonight. Patient denies a history of DVT or PE. He is not on any anticoagulation. He denies fevers, chills or cough. No lower extremity swelling. Denies previous history of cardiac disease. No ripping or tearing sensation to his back. Denies any numbness, tingling or weakness in his extremities. No other alleviating, precipitating or modifying factors - Related Data Home Medications Medication Instructions Recorded Confirmed Metoprolol Succinate (ER) [Toprol 50 mg PO DAILY 10/17/15 09/18/20 Xl] Simvastatin 40 mg PO W/SUPPER 10/17/15 09/18/20 Losartan/Hydrochlorothiazide 1 tab PO DAILY 12/06/19 09/18/20 [Losartan-Hctz 100-25 mg Tab] amLODIPine [Norvasc] 5 mg PO DAILY 12/06/19 09/18/20 Docusate [Colace] 100 - 200 mg PO DAILY PRN 04/06/20 09/18/20 Omeprazole [PriLOSEC] 20 mg PO DAILY 04/06/20 09/18/20 levETIRAcetam [Keppra] 1,000 mg PO BID-W/MEALS 04/06/20 09/18/20 Dexamethasone 0.5 mg PO DAILY 09/18/20 09/18/20 Sulfamethox-Tmp 800-160Mg [Bactrim 1 tab PO MOWEFR 09/18/20 09/18/20 DS 800-160 mg] dexAMETHasone [Dexamethasone] 3 mg PO DAILY 09/18/20 09/18/20 ondansetron HCL [Zofran] 8 mg PO TID PRN 09/18/20 09/18/20 Previous Rx's Medication Instructions Recorded Apixaban [Eliquis Starter Pack 0 mg PO DIRECTED 30 Days #1 pack 09/19/20 (for VTE)] Allergies Allergy/AdvReac Type Severity Reaction Status Date / Time No Known Allergies Allergy Verified 09/18/20 17:38 Review of Systems ROS Statement: Those systems with pertinent positive or pertinent negative responses have been documented in the HPI. ROS Other: All systems not noted in ROS Statement are negative. Past Medical History Past Medical History: Cancer, GERD/Reflux, Hypertension Additional Past Medical History / Comment(s): Brain CA History of Any Multi-Drug Resistant Organisms: None Reported Past Surgical History: Orthopedic Surgery Past Anesthesia/Blood Transfusion Reactions: No Reported Reaction Additional Past Anesthesia/Blood Transfusion Reaction / Comment(s): no hx blood transfusion Past Psychological History: No Psychological Hx Reported Smoking Status: Never smoker Past Alcohol Use History: Occasional Past Drug Use History: None Reported - Past Family History Father Family Medical History: Myocardial Infarction ([place]) Additional Family Medical History / Comment(s): at age 49-[place] Mother Family Medical History: No Reported History Additional Family Medical History / Comment(s): . General Exam Limitations: no limitations General appearance: alert, in no apparent distress Head exam: Present: atraumatic, normocephalic, normal inspection Eye exam: Present: normal appearance, PERRL, EOMI. Absent: scleral icterus, conjunctival injection, periorbital swelling ENT exam: Present: normal exam, mucous membranes moist Neck exam: Present: normal inspection. Absent: tenderness, meningismus, lymphadenopathy Respiratory exam: Present: normal lung sounds bilaterally. Absent: respiratory distress, wheezes, rales, rhonchi, stridor Cardiovascular Exam: Present: normal rhythm, tachycardia, normal heart sounds. Absent: systolic murmur, diastolic murmur, rubs, gallop, clicks GI/Abdominal exam: Present: soft, normal bowel sounds. Absent: distended, tenderness, guarding, rebound, rigid Extremities exam: Present: normal inspection, full ROM, normal capillary refill. Absent: tenderness, pedal edema, joint swelling, calf tenderness Back exam: Present: normal inspection Neurological exam: Present: alert, oriented X3, CN II-XII intact Psychiatric exam: Present: normal affect, normal mood Skin exam: Present: warm, dry, intact, normal color. Absent: rash Course Vital Signs 09/18/20 09/18/20 09/18/20 16:29 17:11 18:32 Temperature 98.5 F Pulse Rate 108 H 97 83 Pulse Rate [ Pulse Oximetery ] Respiratory 18 16 17 Rate Blood Pressure 85/70 92/70 110/77 Blood Pressure [Right Arm] O2 Sat by Pulse 97 100 96 Oximetry 09/18/20 09/19/20 09/19/20 20:00 00:00 02:00 Temperature 97.6 F 98.1 F Pulse Rate Pulse Rate [ 73 73 66 Pulse Oximetery ] Respiratory 16 16 17 Rate Blood Pressure Blood Pressure 128/102 105/81 [Right Arm] O2 Sat by Pulse 96 98 Oximetry - Reevaluation(s) Reevaluation #1: Spoke with Dr. Harrell at [facility] 09/18/20 19:21 Medical Decision Making - Medical Decision Making Upon arrival patient is placed into room 10. A thorough history and physical exam was performed. Peripheral IV is established the patient was given a liter bolus of normal saline because of his low blood pressures. Laboratory studies were conducted. CT of the patient's brain was performed because of his known brain cancer. CT of his chest was also performed due to concern for pulmonary embolism. Laboratory studies are reviewed. D-dimer 6.5. Lactic acid 2.3. Troponin is negative. BNP 250. CT the patient's brain demonstrates multifocal area of white matter edema consistent with tumor vasogenic edema. No significant mass effect. No significant change from previous computed to mography scan. CT of the patient's chest demonstrates large bilateral lower lobe pulmonary emboli with bilateral patchy pneumonia in the lower lobes. The results are discussed with the patient. Also discussed results with Dr. Bustos from neurology and the [facility] patient will be heparinized at this time without a bolus 1904 - spoke with Dr. Bustos who states the patient can be heparinized but no bolus and PTT goal is 45-60. 1920 - spoke with Dr. Harrell who is the patients Neurologist out of [facility]. Agrees patient can be heparinized without bolus. PTT goal 45-60. Pharmacy notified. Patient can go home on anticoagulation however DOES NOT WANT patient to go home on coumadin. Patient is to NOT RECEIVE CHEMO while hospitalized here. Should follow up with Dr. Harrell to restart chemo. Patient will be admitted to [facility]. Spoke with Kris who agreed to admit the patie nt. Patient did have improvement in his blood pressure. Will consult neurology, pulmonology and oncology. The patient's was updated. Patient agreed to the treatment plan and is currently awaiting a bed on the floor - Lab Data Result diagrams: 09/19/20 06:50 09/19/20 06:50 Lab Results 09/18/20 09/18/20 09/18/20 Range/Units 17:11 17:11 17:11 WBC 10.0 (3.8-10.6) k/uL RBC 3.69 L (4.30-5.90) m/uL Hgb 12.9 L (13.0-17.5) gm/dL Hct 37.3 L (39.0-53.0) % MCV 100.9 H (80.0-100.0) fL MCH 34.8 (25.0-35.0) pg MCHC 34.5 (31.0-37.0) g/dL RDW 13.8 (11.5-15.5) % Plt Count 125 L (150-450) k/uL MPV 7.9 Neutrophils % 93 % Lymphocytes % 2 % Monocytes % 4 % Eosinophils % 0 % Basophils % 1 % Neutrophils # 9.2 H (1.3-7.7) k/uL Lymphocytes # 0.2 L (1.0-4.8) k/uL Monocytes # 0.4 (0-1.0) k/uL Eosinophils # 0.0 (0-0.7) k/uL Basophils # 0.1 (0-0.2) k/uL Poikilocytosis Slight Macrocytosis Slight PT 9.3 (9.0-12.0) sec INR 0.8 (<1.2) APTT 20.8 L (22.0-30.0) sec D-Dimer 6.54 H (<0.60) mg/L FEU Sodium 135 L (137-145) mmol/L Potassium 4.5 (3.5-5.1) mmol/L Chloride 104 (98-107) mmol/L Carbon Dioxide 25 (22-30) mmol/L Anion Gap 6 mmol/L BUN 25 H (9-20) mg/dL Creatinine 0.84 (0.66-1.25) mg/dL Est GFR (CKD-EPI)AfAm >90 (>60 ml/min/1.73 sqM) Est GFR (CKD-EPI)NonAf >90 (>60 ml/min/1.73 sqM) Glucose 177 H (74-99) mg/dL Lactic Ac Sepsis Rflx Plasma Lactic Acid Isaiah (0.7-2.0) mmol/L Calcium 8.7 (8.4-10.2) mg/dL Total Bilirubin 0.7 (0.2-1.3) mg/dL AST 29 (17-59) U/L ALT 39 (4-49) U/L Alkaline Phosphatase 54 (38-126) U/L Troponin I (0.000-0.034) ng/mL NT-Pro-B Natriuret Pep pg/mL Total Protein 5.8 L (6.3-8.2) g/dL Albumin 2.9 L (3.5-5.0) g/dL 09/18/20 09/18/20 09/18/20 Range/Units 17:11 17:11 17:11 WBC (3.8-10.6) k/uL RBC (4.30-5.90) m/uL Hgb (13.0-17.5) gm/dL Hct (39.0-53.0) % MCV (80.0-100.0) fL MCH (25.0-35.0) pg MCHC (31.0-37.0) g/dL RDW (11.5-15.5) % Plt Count (150-450) k/uL MPV Neutrophils % % Lymphocytes % % Monocytes % % Eosinophils % % Basophils % % Neutrophils # (1.3-7.7) k/uL Lymphocytes # (1.0-4.8) k/uL Monocytes # (0-1.0) k/uL Eosinophils # (0-0.7) k/uL Basophils # (0-0.2) k/uL Poikilocytosis Macrocytosis PT (9.0-12.0) sec INR (<1.2) APTT (22.0-30.0) sec D-Dimer (<0.60) mg/L FEU Sodium (137-145) mmol/L Potassium (3.5-5.1) mmol/L Chloride (98-107) mmol/L Carbon Dioxide (22-30) mmol/L Anion Gap mmol/L BUN (9-20) mg/dL Creatinine (0.66-1.25) mg/dL Est GFR (CKD-EPI)AfAm (>60 ml/min/1.73 sqM) Est GFR (CKD-EPI)NonAf (>60 ml/min/1.73 sqM) Glucose (74-99) mg/dL Lactic Ac Sepsis Rflx Plasma Lactic Acid Isaiah 2.3 H* (0.7-2.0) mmol/L Calcium (8.4-10.2) mg/dL Total Bilirubin (0.2-1.3) mg/dL AST (17-59) U/L ALT (4-49) U/L Alkaline Phosphatase (38-126) U/L Troponin I <0.012 (0.000-0.034) ng/mL NT-Pro-B Natriuret Pep 250 pg/mL Total Protein (6.3-8.2) g/dL Albumin (3.5-5.0) g/dL 09/18/20 Range/Units 17:39 WBC (3.8-10.6) k/uL RBC (4.30-5.90) m/uL Hgb (13.0-17.5) gm/dL Hct (39.0-53.0) % MCV (80.0-100.0) fL MCH (25.0-35.0) pg MCHC (31.0-37.0) g/dL RDW (11.5-15.5) % Plt Count (150-450) k/uL MPV Neutrophils % % Lymphocytes % % Monocytes % % Eosinophils % % Basophils % % Neutrophils # (1.3-7.7) k/uL Lymphocytes # (1.0-4.8) k/uL Monocytes # (0-1.0) k/uL Eosinophils # (0-0.7) k/uL Basophils # (0-0.2) k/uL Poikilocytosis Macrocytosis PT (9.0-12.0) sec INR (<1.2) APTT (22.0-30.0) sec D-Dimer (<0.60) mg/L FEU Sodium (137-145) mmol/L Potassium (3.5-5.1) mmol/L Chloride (98-107) mmol/L Carbon Dioxide (22-30) mmol/L Anion Gap mmol/L BUN (9-20) mg/dL Creatinine (0.66-1.25) mg/dL Est GFR (CKD-EPI)AfAm (>60 ml/min/1.73 sqM) Est GFR (CKD-EPI)NonAf (>60 ml/min/1.73 sqM) Glucose (74-99) mg/dL Lactic Ac Sepsis Rflx Y Plasma Lactic Acid Isaiah (0.7-2.0) mmol/L Calcium (8.4-10.2) mg/dL Total Bilirubin (0.2-1.3) mg/dL AST (17-59) U/L ALT (4-49) U/L Alkaline Phosphatase (38-126) U/L Troponin I (0.000-0.034) ng/mL NT-Pro-B Natriuret Pep pg/mL Total Protein (6.3-8.2) g/dL Albumin (3.5-5.0) g/dL - EKG Data EKG Comments: EKG demonstrates normal sinus rhythm with a ventricular rate of 94. IA interval 160. QRS 70. QTC of 425. No acute ST segment elevations or depressions Critical Care Time Critical Care Time: Yes Critical Care Time: 32 minutes for initiation of heparin gtt and consultation with multiple s pecialists discussing this treatment in a patient with known brain cancer Disposition Clinical Impression: Brain cancer, Pulmonary embolism, Glioblastoma multiforme, DVT (deep venous thrombosis) Disposition: ADMITTED IP TO THIS [facility] Condition: Serious Is patient prescribed a controlled substance at d/c from ED?: No Decision to Admit Reason: Admit from EC Decision Date: 09/18/20 Decision Time: 19:01
[2020-09-18 17:25] LABS: Basophils # (A) 0.1 k/uL (0-0.2); Basophils % (A) 1 %; Eosinophils % (A) 0 %; HCT 37.3 % (39.0-53.0); HGB 12.9 gm/dL (13.0-17.5); Lymphocytes # (A) 0.2 k/uL (1.0-4.8); Lymphocytes % (A) 2 %; MCH 34.8 pg (25.0-35.0); MCHC 34.5 g/dL (31.0-37.0); MCV 100.9 fL (80.0-100.0); Macrocytosis Slight; Mean Platelet Volume 7.9; Monocytes # (A) 0.4 k/uL (0-1.0); Monocytes % (A) 4 %; Neutrophils # (A) 9.2 k/uL (1.3-7.7); Neutrophils % (A) 93 %; Platelet Count 125 k/uL (150-450); Poikilocytosis Slight; RBC 3.69 m/uL (4.30-5.90); RDW 13.8 % (11.5-15.5)
[2020-09-18 17:35] LABS: ALT 39 U/L (4-49); AST 29 U/L (17-59); African American GFR (CKD) >90 (>60 ml/min/1.73 sqM); Albumin 2.9 g/dL (3.5-5.0); Alkaline Phosphatase 54 U/L (38-126); Anion Gap 6 mmol/L; Blood Urea Nitrogen 25 mg/dL (9-20); Calcium 8.7 mg/dL (8.4-10.2); Carbon Dioxide 25 mmol/L (22-30); Chloride 104 mmol/L (98-107); Glucose 177 mg/dL (74-99); Non-African American GFR(CKD) >90 (>60 ml/min/1.73 sqM); Potassium 4.5 mmol/L (3.5-5.1); Sodium 135 mmol/L (137-145); Total Bilirubin 0.7 mg/dL (0.2-1.3); Total Protein 5.8 g/dL (6.3-8.2)
[2020-09-18 17:53] LABS: INR 0.8 (<1.2); Prothrombin Time 9.3 sec (9.0-12.0)
[2020-09-18 17:54] LABS: Partial Thromboplastin Time 20.8 sec (22.0-30.0)
[2020-09-18 17:55] LABS: D-Dimer 6.54 mg/L FEU (<0.60)
--- NOTE | 2020-09-18 18:01 | CT ---
EXAMINATION TYPE: CT brain wo con DATE OF EXAM: 09/18/2020 COMPARISON: 04/06/2020 HISTORY: Weakness. History of brain cancer. CT DLP: 1091.4 mGycm Automated exposure control for dose reduction was used. Exam performed without contrast. There is some patchy white matter edema involving the left parietal lobe. There is 12 mm rounded area of fluid density left parietal lobe convexity consistent with focal encephalomalacia. There is some white matter edema involving the right posterior temporal lobe. There is no midline shift. There is n o evidence of intracranial hemorrhage. There is some increased attenuation in the subependymal right parietal lobe adjacent to the lateral ventricle. There is some grade white matter 3 cm area of hypode nsity consistent with edema in the left frontal lobe convexity. Exam limited by lack of contrast. IMPRESSION: Multifocal area of white matter edema consistent with tumor and vasogenic edema. No significant mass effect. There is not a significant change overall compared to previous CT scan.
--- NOTE | 2020-09-18 18:15 | CT ---
EXAMINATION TYPE: CT chest angio for PE DATE OF EXAM: 09/18/2020 COMPARISON: None HISTORY: Shortness of breath. History of brain cancer. CT DLP: 701.1 mGycm Automated exposure control for dose reduction was used. CONTRAST: Performed with IV Contrast, patient injected with 100 mL of Isovue 370. Images were obtained from the thoracic inlet to the diaphragm with IV contrast and 3-D post processed images. There is some mild patchy peripheral infiltrate in the posterior lower lung whraton. There is some air space consolidation left lower lobe. Heart size is normal. There is no pericardial effusion. Thoracic aorta is intact. There is no aneurysm or dissection. There are numerous large filling defects in the lower lobe pulmonary arteries bilaterally. Heart size is normal. There is no enlargement of the right heart. The bony thorax is intact. Sternum is intact. Upper abdominal soft tissues are intact. IMPRESSION: Large bilateral lower lobe pulmonary emboli. Bilateral patchy pneumonia in the lower lobes. This exam was discussed with Traci Low at 6:15 PM.
[2020-09-18] MEDS ORDERED: NALOXONE 0.4 MG/ML 1 ML VIAL IV PRN (19:16)
[2020-09-18] MEDS ORDERED: HEPARIN SODIUM,PORCINE 5,000 UNIT/ML 1 ML VIAL IV PRN (19:22)
[2020-09-18] MEDS ORDERED: ONDANSETRON 4 MG TAB PO PRN (19:38)
[2020-09-18] MEDS: HEPARIN SOD,PORK IN 0.45% NACL 25,000 UNIT in 0.45% NACL 1 250ML.BAG IV SCH (19:41)
[2020-09-18] MEDS: SODIUM CHLORIDE 0.9% 1,000 ML IV SCH (19:43)
[2020-09-18] MEDS: levETIRAcetam 500 MG TAB PO SCH (20:07)
[2020-09-18] MEDS: SULFAMETHOX-TMP 800-160MG 1 EACH TAB PO SCH (20:08)
[2020-09-18] MEDS: ATORVASTATIN 20 MG TAB PO SCH (20:08)
--- NOTE | 2020-09-18 20:45 | US ---
EXAMINATION TYPE: US venous doppler duplex LE DATE OF EXAM: 09/18/2020 8:26 PM COMPARISON: NONE CLINICAL HISTORY: pe. PE per order. Patient on Heparin. SIDE PERFORMED: Bilateral TECHNIQUE: The lower extremity deep venous system is examined utilizing real time linear array sonog meek with graded compression, doppler sonography and color-flow sonography. VESSELS IMAGED: Common Femoral Vein Deep Femoral Vein Greater Saphenous Vein * Femoral Vein Popliteal Vein Small Saphenous Vein * Proximal Calf Veins (* superficial vessels) Right Leg: No evidence of DVT in veins imaged at this time from prox calf veins to CFV/GSV. Left Leg: There appears to be internal echoes throughout the left lower extremity veins from CFV miguel n through the prox calf veins. Vessels do not appear to compress. Color defect or no color flow visua lized within these vessels. IMPRESSION: There is evidence of acute deep vein thrombosis in the left leg. There is no evidence of deep vein thrombosis in the right leg.
[2020-09-19] MEDS: levETIRAcetam 500 MG TAB PO SCH ×2 (06:33→16:40)
[2020-09-19] MEDS: PANTOPRAZOLE 40 MG TABLET PO SCH (06:49)
[2020-09-19 08:00] LABS: Basophils % (A) 0 %; Eosinophils % (A) 0 %; HCT 32.3 % (39.0-53.0); HGB 11.2 gm/dL (13.0-17.5); Lymphocytes # (A) 0.6 k/uL (1.0-4.8); Lymphocytes % (A) 8 %; MCH 35.7 pg (25.0-35.0); MCHC 34.6 g/dL (31.0-37.0); MCV 103.4 fL (80.0-100.0); Macrocytosis Slight; Mean Platelet Volume 7.9; Monocytes # (A) 0.3 k/uL (0-1.0); Monocytes % (A) 4 %; Neutrophils # (A) 6.6 k/uL (1.3-7.7); Neutrophils % (A) 88 %; Platelet Count 115 k/uL (150-450); RBC 3.13 m/uL (4.30-5.90); RDW 13.6 % (11.5-15.5); WBC 7.5 k/uL (3.8-10.6)
[2020-09-19 08:25] LABS: INR 0.9 (<1.2); Partial Thromboplastin Time 60.9 sec (22.0-30.0); Prothrombin Time 9.4 sec (9.0-12.0)
[2020-09-19] MEDS: SODIUM CHLORIDE 0.9% 1,000 ML IV SCH ×2 (08:52→21:59)
[2020-09-19] MEDS: METOPROLOL SUCCINATE (ER) 50 MG TAB.ER.24H PO SCH (08:52)
[2020-09-19] MEDS: HEPARIN SOD,PORK IN 0.45% NACL 25,000 UNIT in 0.45% NACL 1 250ML.BAG IV SCH (08:53)
[2020-09-19] MEDS: DEXAMETHASONE PO SCH ×2 (08:55)
[2020-09-19] MEDS ORDERED: DEXAMETHASONE 1 MG PO SCH (09:00)
[2020-09-19 09:30] LABS: African American GFR (CKD) >90 (>60 ml/min/1.73 sqM); Anion Gap 5 mmol/L; Blood Urea Nitrogen 22 mg/dL (9-20); Calcium 8.5 mg/dL (8.4-10.2); Carbon Dioxide 26 mmol/L (22-30); Chloride 107 mmol/L (98-107); Glucose 90 mg/dL (74-99); Non-African American GFR(CKD) >90 (>60 ml/min/1.73 sqM); Potassium 4.3 mmol/L (3.5-5.1); Sodium 138 mmol/L (137-145)
--- NOTE | 2020-09-19 10:13 | P.CONS ---
History of Present Illness - Reason for Consult Consult date: 09/19/20 PE/ LLE DVT, GBM treatment Requesting physician: Traci Low - Chief Complaint SOB - History of Present Illness Mr. Sosa is a very pleasant man with history of giloblastoma multiforme, diagnosed 12/2019, treated with radiation and currently on oral treatment (most likely temodar) pn a monthly cycle. He was brought to ER by his due to progressive SOB/REJI at the direction of his Oncologist who they reported symptoms to. Pt was found to have bilateral PE and LLE DVT. He states his breathing is not as labored as it was prior to admit. No bleeding on heparin d rip. ER notes reviewed and they did discuss case with pt primary Oncologist who cleared pt for anticoagulation. Pt denies any other physical c/o at this time on a 14 point ROS. Review of Systems 14 point ROS is neg except as stated in HPI Past Medical History Past Medical History: Cancer, GERD/Reflux, Hypertension, Sleep Apnea/CPAP/BIPAP Additional Past Medical History / Comment(s): dx in december 2019 with Brain CA, currently going through radiation and chemo History of Any Multi-Drug Resistant Organisms: None Reported Past Surgical History: Orthopedic Surgery Additional Past Surgical History / Comment(s): brain biopsy Past Anesthesia/Blood Transfusion Reactions: No Reported Reaction Additional Past Anesthesia/Blood Transfusion Reaction / Comm: no hx blood transfusion Past Psychological History: No Psychological Hx Reported Smoking Status: Former smoker Past Alcohol Use History: Occasional Past Drug Use History: None Reported - Past Family History Father Family Medical History: Myocardial Infarction ([place]) Additional Family Medical History / Comment(s): at age 49-[place] Mother Family Medical History: No Reported History Additional Family Medical History / Comment(s): . Medications and Allergies Home Medications Medication Instructions Recorded Confirmed Type Metoprolol Succinate (ER) [Toprol 50 mg PO DAILY 10/17/15 09/18/20 History Xl] Simvastatin 40 mg PO W/SUPPER 10/17/15 09/18/20 History Losartan/Hydrochlorothiazide 1 tab PO DAILY 12/06/19 09/18/20 History [Losartan-Hctz 100-25 mg Tab] amLODIPine [Norvasc] 5 mg PO DAILY 12/06/19 09/18/20 History Docusate [Colace] 100 - 200 mg PO DAILY PRN 04/06/20 09/18/20 History Omeprazole [PriLOSEC] 20 mg PO DAILY 04/06/20 09/18/20 History levETIRAcetam [Keppra] 1,000 mg PO BID-W/MEALS 04/06/20 09/18/20 History Dexamethasone 0.5 mg PO DAILY 09/18/20 09/18/20 History Sulfamethox-Tmp 800-160Mg [Bactrim 1 tab PO MOWEFR 09/18/20 09/18/20 History DS 800-160 mg] dexAMETHasone [Dexamethasone] 3 mg PO DAILY 09/18/20 09/18/20 History ondansetron HCL [Zofran] 8 mg PO TID PRN 09/18/20 09/18/20 History Allergies Allergy/AdvReac Type Severity Reaction Status Date / Time No Known Allergies Allergy Verified 09/18/20 17:38 Physical Exam Vitals: Vital Signs Temp Pulse Pulse Resp BP BP Pulse Ox 09/19/20 07:52 97.6 F 81 18 145/92 96 09/19/20 03:57 97.4 F L 66 17 128/83 95 09/19/20 03:51 97.4 F L 66 17 128/83 95 09/19/20 02:00 66 17 09/19/20 00:00 98.1 F 73 16 105/81 98 09/18/20 20:00 97.6 F 73 16 128/102 96 09/18/20 18:32 83 17 110/77 96 09/18/20 17:11 97 16 92/70 100 09/18/20 16:29 98.5 F 108 H 18 85/70 97 Intake and Output 09/18/20 09/19/20 09/19/20 22:59 06:59 14:59 Intake Total 582.02 237.98 Output Total 0 Balance 582.02 237.98 Intake: IV 450 Sodium Chloride 0.9% 1, 450 000 ml @ 75 mls/hr IV . [id number] BERNIE Rx#:[id number] Intake, IV Titration 132.02 117.98 Amount Heparin Sod,Pork in 0.45% 132.02 117.98 NaCl 25,000 unit In 0.45 % NaCl 1 250ml.bag @ 18 UNITS/KG/HR 20.003 mls/hr IV .[id number] B[facility] Rx#: [id number] Oral 120 Output: Urine 0 Other: Voiding Method Urinal Urinal Urinal Weight 111.13 kg 115 kg - Constitutional General appearance: cooperative, no acute distress, obese - EENT Eyes: anicteric sclerae, EOMI ENT: hearing grossly normal, normal oropharynx - Neck Neck: no lymphadenopathy - Respiratory Respiratory: bilateral: CTA - Cardiovascular Rhythm: regular Heart sounds: normal: S1, S2 Abnormal Heart Sounds: no systolic murmur, no diastolic murmur, no rub, no S3 Gallop, no S4 Gallop, no click, no other leg Peripheral Edema: bilateral: Trace - Gastrointestinal General gastrointestinal: no absent bowel sounds, no decreased bowel sounds, no distended, no hepatomegaly, no hyperactive bowel sounds, normal bowel sounds, no organomegaly, no rigid, no scaphoid, soft, no splenomegaly, no tenderness, no umbilical hernia, no ventral hernia - Integumentary Integumentary: normal - Neurologic no gross deficits, strength equal bilaterally - Musculoskeletal Musculoskeletal: strength equal bilaterally - Psychiatric pt remembers quite a bit of his history, he is oriented to self, place and time Psychiatric: A&O x's 3, appropriate affect, intact judgment & insight Results CBC & Chem 7: 09/19/20 06:50 09/19/20 06:50 Labs: Abnormal Lab Results - Last 24 Hours (Table) 09/18/20 09/18/20 09/18/20 Range/Units 17:11 17:11 17:11 RBC 3.69 L (4.30-5.90) m/uL Hgb 12.9 L (13.0-17.5) gm/dL Hct 37.3 L (39.0-53.0) % MCV 100.9 H (80.0-100.0) fL MCH (25.0-35.0) pg Plt Count 125 L (150-450) k/uL Neutrophils # 9.2 H (1.3-7.7) k/uL Lymphocytes # 0.2 L (1.0-4.8) k/uL APTT 20.8 L (22.0-30.0) sec D-Dimer 6.54 H (<0.60) mg/L FEU Sodium 135 L (137-145) mmol/L BUN 25 H (9-20) mg/dL Glucose 177 H (74-99) mg/dL Plasma Lactic Acid Isaiah (0.7-2.0) mmol/L Total Protein 5.8 L (6.3-8.2) g/dL Albumin 2.9 L (3.5-5.0) g/dL 09/18/20 09/19/20 09/19/20 Range/Units 17:11 01:10 06:50 RBC 3.13 L (4.30-5.90) m/uL Hgb 11.2 L (13.0-17.5) gm/dL Hct 32.3 L (39.0-53.0) % MCV 103.4 H (80.0-100.0) fL MCH 35.7 H (25.0-35.0) pg Plt Count 115 L (150-450) k/uL Neutrophils # (1.3-7.7) k/uL Lymphocytes # 0.6 L (1.0-4.8) k/uL APTT 44.3 H (22.0-30.0) sec D-Dimer (<0.60) mg/L FEU Sodium (137-145) mmol/L BUN (9-20) mg/dL Glucose (74-99) mg/dL Plasma Lactic Acid Isaiah 2.3 H* (0.7-2.0) mmol/L Total Protein (6.3-8.2) g/dL Albumin (3.5-5.0) g/dL 09/19/20 09/19/20 Range/Units 06:50 06:50 RBC (4.30-5.90) m/uL Hgb (13.0-17.5) gm/dL Hct (39.0-53.0) % MCV (80.0-100.0) fL MCH (25.0-35.0) pg Plt Count (150-450) k/uL Neutrophils # (1.3-7.7) k/uL Lymphocytes # (1.0-4.8) k/uL APTT 60.9 H (22.0-30.0) sec D-Dimer (<0.60) mg/L FEU Sodium (137-145) mmol/L BUN 22 H (9-20) mg/dL Glucose (74-99) mg/dL Plasma Lactic Acid Isaiah (0.7-2.0) mmol/L Total Protein (6.3-8.2) g/dL Albumin (3.5-5.0) g/dL CT scan - chest: report reviewed CT Scan - head: report reviewed Venous US: report reviewed Assessment and Plan (1) Pulmonary embolism Current Visit: Yes Status: Acute Priority: High Code(s): I26.99 - OTHER PULMONARY EMBOLISM WITHOUT ACUTE COR PULMONALE SNOMED Code(s): 96693631 (2) DVT (deep venous thrombosis) Current Visit: Yes Status: Acute Priority: High Code(s): I82.409 - ACUTE EMBOLISM AND THOMBOS UNSP DEEP VN UNSP LOWER EXTREMITY SNOMED Code(s): 562733854 (3) Glioblastoma multiforme Narrative/Plan: Pt will return to his Primary Oncologist as [facility] to continue treatment Current Visit: No Status: Chronic Priority: Medium Code(s): C71.9 - MALIGNANT NEOPLASM OF BRAIN, UNSPECIFIED SNOMED Code(s): 612994915 Plan: Reviewed ER notes. Primary Onc was contacted. Heparin drip low intensity ordered. Recommendations to avoid comadin due to numerous medication i nteractions with pt treatment regimen. Discussed case with Case Mgmt, Eliquis Rx will be sent to [facility] for copay verification Attests: I have performed H&P, seen and examined pt, developed impression and plan of care. Discussed with dictator. Agree with documentation, any noguera as a scribe.
--- NOTE | 2020-09-19 10:26 | P.HPIM ---
History of Present Illness Patient is a pleasant 60-year-old male came in with complaints of shortness of breath found to have bilateral PE presently shortness of breath significantly improved does have history of COPD denied any chest pain at this time. Patient does have history of glioblastoma multiforme, undergoing radiation therapy and chemotherapy. He is also found to have a DVT of the left leg. Patient is presently on heparin drip. Patient denied any fever chills patient denied any cough. Patient had some infiltrate in the left lower lung wharton not consistent with pneumonia. Patient doesn't have any leukocytosis patient will be transitioned to [facility] later today and possibility of discharge tomorrow. Review of Systems REVIEW OF SYSTEMS: CONSTITUTIONAL: No fever, no malaise, no fatigue. HEENT: No recent visual problems or hearing problems. Denied any sore throat. CARDIOVASCULAR: No chest pain, orthopnea, PND, no palpitations, no syncope. PULMONARY: no hemoptysis. GASTROINTESTINAL: No diarrhea, no nausea, no vomiting, no abdominal pain. NEUROLOGICAL: No headaches, no weakness, no numbness. HEMATOLOGICAL: Denies any bleeding or petechiae. GENITOURINARY: Denies any burning micturition, frequency, or urgency. MUSCULOSKELETAL/RHEUMATOLOGICAL: Denies any joint pain, swelling, or any muscle pain. ENDOCRINE: Denies any polyuria or polydipsia. The rest of the 14-point review of systems is negative. Past Medical History Past Medical History: Cancer, GERD/Reflux, Hypertension, Sleep Apnea/CPAP/BIPAP Additional Past Medical History / Comment(s): dx in december 2019 with Brain CA, currently going through radiation and chemo History of Any Multi-Drug Resistant Organisms: None Reported Past Surgical History: Orthopedic Surgery Additional Past Surgical History / Comment(s): brain biopsy Past Anesthesia/Blood Transfusion Reactions: No Reported Reaction Additional Past Anesthesia/Blood Transfusion Reaction / Comment(s): no hx blood transfusion Past Psychological History: No Psychological Hx Reported Smoking Status: Former smoker Past Alcohol Use History: Occasional Past Drug Use History: None Reported - Past Family History Father Family Medical History: Myocardial Infarction ([place]) Additional Family Medical History / Comment(s): at age 49-[place] Mother Family Medical History: No Reported History Additional Family Medical History / Comment(s): . Medications and Allergies Home Medications Medication Instructions Recorded Confirmed Type Metoprolol Succinate (ER) [Toprol 50 mg PO DAILY 10/17/15 09/18/20 History Xl] Simvastatin 40 mg PO W/SUPPER 10/17/15 09/18/20 History Losartan/Hydrochlorothiazide 1 tab PO DAILY 12/06/19 09/18/20 History [Losartan-Hctz 100-25 mg Tab] amLODIPine [Norvasc] 5 mg PO DAILY 12/06/19 09/18/20 History Docusate [Colace] 100 - 200 mg PO DAILY PRN 04/06/20 09/18/20 History Omeprazole [PriLOSEC] 20 mg PO DAILY 04/06/20 09/18/20 History levETIRAcetam [Keppra] 1,000 mg PO BID-W/MEALS 04/06/20 09/18/20 History Dexamethasone 0.5 mg PO DAILY 09/18/20 09/18/20 History Sulfamethox-Tmp 800-160Mg [Bactrim 1 tab PO MOWEFR 09/18/20 09/18/20 History DS 800-160 mg] dexAMETHasone [Dexamethasone] 3 mg PO DAILY 09/18/20 09/18/20 History ondansetron HCL [Zofran] 8 mg PO TID PRN 09/18/20 09/18/20 History Apixaban [Eliquis Starter Pack 0 mg PO DIRECTED 30 Days #1 pack 09/19/20 Rx (for VTE)] Allergies Allergy/AdvReac Type Severity Reaction Status Date / Time No Known Allergies Allergy Verified 09/18/20 17:38 Physical Exam Vitals: Vital Signs Temp Pulse Pulse Resp BP BP Pulse Ox 09/19/20 07:52 97.6 F 81 18 145/92 96 09/19/20 03:57 97.4 F L 66 17 128/83 95 09/19/20 03:51 97.4 F L 66 17 128/83 95 09/19/20 02:00 66 17 09/19/20 00:00 98.1 F 73 16 105/81 98 09/18/20 20:00 97.6 F 73 16 128/102 96 09/18/20 18:32 83 17 110/77 96 09/18/20 17:11 97 16 92/70 100 09/18/20 16:29 98.5 F 108 H 18 85/70 97 Intake and Output 0109/19/20 09/19/20 22:59 06:59 14:59 Intake Total 582.02 237.98 Output Total 0 Balance 582.02 237.98 Intake: IV 450 Sodium Chloride 0.9% 1, 450 000 ml @ 75 mls/hr IV . [id number] BERNIE Rx#:[id number] Intake, IV Titration 132.02 117.98 Amount Heparin Sod,Pork in 0.45% 132.02 117.98 NaCl 25,000 unit In 0.45 % NaCl 1 250ml.bag @ 18 UNITS/KG/HR 20.003 mls/hr IV .[id number] BERNIE Rx#: [id number] Oral 120 Output: Urine 0 Other: Voiding Method Urinal Urinal Urinal Weight 111.13 kg 115 kg PHYSICAL EXAMINATION: GENERAL: The patient is alert and oriented x3, not in any acute distress. Obese HEENT: Pupils are round and equally reacting to light. EOMI. No scleral icterus. No conjunctival pallor. Normocephalic, atraumatic. No pharyngeal erythema. No thyromegaly. CARDIOVASCULAR: S1 and S2 present. No murmurs, rubs, or gallops. PULMONARY: Chest is clear to auscultation, no wheezing or crackles. ABDOMEN: Soft, nontender, nondistended, normoactive bowel sounds. No palpable organomegaly. MUSCULOSKELETAL: No joint swelling or deformity. EXTREMITIES: No cyanosis, clubbing, or pedal edema. NEUROLOGICAL: Gross neurological examination did not reveal any focal deficits. SKIN: No rashes. Results CBC & Chem 7: 09/19/20 06:50 09/19/20 06:50 Labs: Abnormal Lab Results - Last 24 Hours (Table) 09/18/20 09/18/20 09/18/20 Range/Units 17:11 17:11 17:11 RBC 3.69 L (4.30-5.90) m/uL Hgb 12.9 L (13.0-17.5) gm/dL Hct 37.3 L (39.0-53.0) % MCV 100.9 H (80.0-100.0) fL MCH (25.0-35.0) pg Plt Count 125 L (150-450) k/uL Neutrophils # 9.2 H (1.3-7.7) k/uL Lymphocytes # 0.2 L (1.0-4.8) k/uL APTT 20.8 L (22.0-30.0) sec D-Dimer 6.54 H (<0.60) mg/L FEU Sodium 135 L (137-145) mmol/L BUN 25 H (9-20) mg/dL Glucose 177 H (74-99) mg/dL Plasma Lactic Acid Isaiah (0.7-2.0) mmol/L Total Protein 5.8 L (6.3-8.2) g/dL Albumin 2.9 L (3.5-5.0) g/dL 09/18/20 09/19/20 09/19/20 Range/Units 17:11 01:10 06:50 RBC 3.13 L (4.30-5.90) m/uL Hgb 11.2 L (13.0-17.5) gm/dL Hct 32.3 L (39.0-53.0) % MCV 103.4 H (80.0-100.0) fL MCH 35.7 H (25.0-35.0) pg Plt Count 115 L (150-450) k/uL Neutrophils # (1.3-7.7) k/uL Lymphocytes # 0.6 L (1.0-4.8) k/uL APTT 44.3 H (22.0-30.0) sec D-Dimer (<0.60) mg/L FEU Sodium (137-145) mmol/L BUN (9-20) mg/dL Glucose (74-99) mg/dL Plasma Lactic Acid Isaiah 2.3 H* (0.7-2.0) mmol/L Total Protein (6.3-8.2) g/dL Albumin (3.5-5.0) g/dL 09/19/20 09/19/20 Range/Units 06:50 06:50 RBC (4.30-5.90) m/uL Hgb (13.0-17.5) gm/dL Hct (39.0-53.0) % MCV (80.0-100.0) fL MCH (25.0-35.0) pg Plt Count (150-450) k/uL Neutrophils # (1.3-7.7) k/uL Lymphocytes # (1.0-4.8) k/uL APTT 60.9 H (22.0-30.0) sec D-Dimer (<0.60) mg/L FEU Sodium (137-145) mmol/L BUN 22 H (9-20) mg/dL Glucose (74-99) mg/dL Plasma Lactic Acid Isaiah (0.7-2.0) mmol/L Total Protein (6.3-8.2) g/dL Albumin (3.5-5.0) g/dL Thrombosis Risk Factor Assmnt - Choose All That Apply Any of the Below Risk Factors Present?: Yes Each Factor Represents 1 point: Age 41-60 years, Obesity (BMI >25) Other Risk Factors: Yes Each Risk Factor Represents 2 Points: Malignancy Thrombosis Risk Factor Assessment Total Risk Factor Score: 4 Thrombosis Risk Factor Assessment Level: Moderate Risk Assessment and Plan Plan: -Acute bilateral PE: Patient is presently on IV heparin which will be transitioned to by mouth and Phil later today patient is imminently stable possibility of discharge tomorrow. Patient does have a glioblastoma multiforme, patient need to be on anticoagulation until after 3-6 months after he goes into relapse for glioblastoma -Glioblastoma multiforme he: No evidence of further intracranial bleed on the CAT scan that was done is as stated before he was started on anticoagulation. Patient was evaluated by oncology as well. Patient is on empiric Bactrim which will be continued. -COPD without any acute exacerbation -Sleep apnea uses CPAP machine which will be continued -Hypertension patient was restarted back on amlodipine depending on his blood pressures during this hospitalization can either continue or discontinue lisinopril/hydrochlorothiazide -GI prophylaxis with Protonix
[2020-09-19] MEDS ORDERED: MECLIZINE 12.5 MG TAB PO PRN (11:11)
--- NOTE | 2020-09-19 11:12 | P.CNNES ---
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 Some of the history obtained from medical records since patient could not provide full history and was having difficulty getting his words out. The patient has been having e xertional dyspnea. Patient is usually fatigued after chemo however he did not receive his last chemo treatment because of his platelets were low. Patient is not on any anticoagulation. Regarding the patient's brain cancer patient follows up at [facility] with Dr. Laurel Harrell. Patient home medication is Keppra 1000 mg 1 tablet twice a day. As well as the patient is on the dexamethasone 3.5mg daily. Is on the Omeprazole was all 20 mg daily Workup in the hospital consisted of: Initial vital signs: Blood pressure of 85/70, heart rate 108, temperature of 98.5 Fahrenheit oral, respiratory of 18 and pulse ox of 97% at room air. After 2 hours the patient's systolic blood pressure has been in the range of 100s to 150s. CT of the head is reported as multifocal areas of white matter edema consistent with tumor and vasogenic edema. No significant mass effect. There is no signi ficant change overall compared to previous computed tomography scan. The body and it is mentioned that there is some patchy white matter edema involving left parietal lobe at. There is 12 mm rounded area of fluid density in the left parietal lobe convexity consistent with focal encephalomalacia. There is some white matter edema involving the right posterior temporal lobe. There is no midline shift. There is no evidence of intracranial hemorrhage. There is some increased attenuation in the sup ependymal right parietal lobe adjacent to the lateral ventricle. There is some great white matter 3 cm area hypodensity consistent with edema in the left frontal lobe convexity. CT angio of the chest: Large bilateral lower lobe pulmonary emboli. Bilateral patchy pneumonia in the lower lobe. EKG is reported as normal sinus rhythm. Normal EKG. Venous duplex of bilateral lower extremity is reported as there is evidence of acute DVT in the left leg. There is no evidence of DVT right leg. MCV is 100.9. The hemoglobin is 12.9 hematocrit 37.3 platelets is 125 and a repeat is 115. Review of Systems Review of system: The 12 point system was reviewed and apparent positive and negative per HPI. Past Medical History Past Medical History: Cancer, GERD/Reflux, Hypertension Additional Past Medical History / Comment(s): dx in december 2019 with Brain CA, currently going through radiation and chemo History of Any Multi-Drug Resistant Organisms: None Reported Past Surgical History: Orthopedic Surgery Past Anesthesia/Blood Transfusion Reactions: No Reported Reaction Additional Past Anesthesia/Blood Transfusion Reaction / Comment(s): no hx blood transfusion Past Psychological History: No Psychological Hx Reported Smoking Status: Former smoker Past Alcohol Use History: Occasional Past Drug Use History: None Reported - Past Family History Father Family Medical History: Myocardial Infarction ([place]) Additional Family Medical History / Comment(s): at age 49-[place] Mother Family Medical History: No Reported History Additional Family Medical History / Comment(s): . Medications and Allergies Home Medications Medication Instructions Recorded Confirmed Type Metoprolol Succinate (ER) [Toprol 50 mg PO DAILY 10/17/15 09/18/20 History Xl] Simvastatin 40 mg PO W/SUPPER 10/17/15 09/18/20 History Losartan/Hydrochlorothiazide 1 tab PO DAILY 12/06/19 09/18/20 History [Losartan-Hctz 100-25 mg Tab] amLODIPine [Norvasc] 5 mg PO DAILY 12/06/19 09/18/20 History Docusate [Colace] 100 - 200 mg PO DAILY PRN 04/06/20 09/18/20 History Omeprazole [PriLOSEC] 20 mg PO DAILY 04/06/20 09/18/20 History levETIRAcetam [Keppra] 1,000 mg PO BID-W/MEALS 04/06/20 09/18/20 History Dexamethasone 0.5 mg PO DAILY 09/18/20 09/18/20 History Sulfamethox-Tmp 800-160Mg [Bactrim 1 tab PO MOWEFR 09/18/20 09/18/20 History DS 800-160 mg] dexAMETHasone [Dexamethasone] 3 mg PO DAILY 09/18/20 09/18/20 History ondansetron HCL [Zofran] 8 mg PO TID PRN 09/18/20 09/18/20 History Apixaban [Eliquis Starter Pack 0 mg PO DIRECTED 30 Days #1 pack 09/19/20 Rx (for VTE)] Allergies Allergy/AdvReac Type Severity Reaction Status Date / Time No Known Allergies Allergy Verified 09/18/20 17:38 Physical Examination - Vital Signs Vital Signs: Vital Signs Temp Pulse Pulse Resp BP BP Pulse Ox 09/19/20 07:52 97.6 F 81 18 145/92 96 09/19/20 03:57 97.4 F L 66 17 128/83 95 09/19/20 03:51 97.4 F L 66 17 128/83 95 09/19/20 02:00 66 17 09/19/20 00:00 98.1 F 73 16 105/81 98 09/18/20 20:00 97.6 F 73 16 128/102 96 09/18/20 18:32 83 17 110/77 96 09/18/20 17:11 97 16 92/70 100 09/18/20 16:29 98.5 F 108 H 18 85/70 97 Intake and Output 09/18/20 09/19/20 09/19/20 22:59 06:59 14:59 Intake Total 582.02 Output Total 0 Balance 582.02 Intake: IV 450 Sodium Chloride 0.9% 1, 450 000 ml @ 75 mls/hr IV . [id number] [facility] Rx#:[id number] Intake, IV Titration 132.02 Amount Heparin Sod,Pork in 0.45% 132.02 NaCl 25,000 unit In 0.45 % NaCl 1 250ml.bag @ 18 UNITS/KG/HR 20.003 mls/hr IV .[id number] [facility] Rx#: [id number] Output: Urine 0 Other: Voiding Method Urinal Urinal Weight 111.13 kg 115 kg GENERAL: The patient is lying in bed and is not in acute distress. CHEST: The heart rate is regular rate rhythm. No murmurs to auscultation. LUNG: Clear to auscultation bilaterally no wheezing noted throughout. Not labored breathing. ABDOMEN/GI: Bowel sounds present in all 4 quadrants. No tenderness to palpation throughout. NEUROLOGICAL: Higher mental function: The patient is awake, alert, oriented to self. He stated he was in the hospital but did not know the name of it. He correctly stated the year but not month. He stated it was December. Patient is following simple commands. Has motor aphasia. No neglect. Cranial nerves: The pupils are round, equal and reactive to light and accommodation. Visual wharton are full to confrontation throughout. Extraocular movement is intact no nystagmus is noted. Facial sensation is normal to touch throughout. The facial strength is normal throughout. Hearing is normal bi laterally to hand rub. Tongue is midline and moved [id number] without any difficulty. No dysarthria is noted. Shoulder shrug is normal bilaterally. Motor: Gait was attempted felt dizzy so had to abort it. The strength is 5 over 5 throughout. Normal tone and bulk. Cerebellum: Normal finger to nose bilaterally. Sensation: Sensation is normal to touch throughout. Reflexes (right/left): 2+ throughout Plantars: RIght is upgoing at baseline while left is downgoing. Results AST of 29 and ALT of 39. Coagulation study: PT of 9.3, INR 0.8, PTT of 20.8 and d-dimer of 6.54. The latest PTT is 60.9. - Laboratory Findings CBC and BMP: 09/19/20 06:50 09/19/20 06:50 Abnormal Lab Findings: Abnormal Labs 09/18/20 09/18/20 09/18/20 17:11 17:11 17:11 RBC 3.69 L Hgb 12.9 L Hct 37.3 L MCV 100.9 H MCH Plt Count 125 L Neutrophils # 9.2 H Lymphocytes # 0.2 L APTT 20.8 L D-Dimer 6.54 H Sodium 135 L BUN 25 H Glucose 177 H Plasma Lactic Acid Isaiah Total Protein 5.8 L Albumin 2.9 L 09/18/20 09/19/20 09/19/20 17:11 01:10 06:50 RBC 3.13 L Hgb 11.2 L Hct 32.3 L MCV 103.4 H MCH 35.7 H Plt Count 115 L Neutrophils # Lymphocytes # 0.6 L APTT 44.3 H D-Dimer Sodium BUN Glucose Plasma Lactic Acid Isaiah 2.3 H* Total Protein Albumin 09/19/20 06:50 RBC Hgb Hct MCV MCH Plt Count Neutrophils # Lymphocytes # APTT 60.9 H D-Dimer Sodium BUN Glucose Plasma Lactic Acid Isaiah Total Protein Albumin Assessment and Plan Assessment: This is a 60-year-old gentleman with medical history of Glioblastoma Multiforme undergoing radiation and chemotherapy per records that that presented to the emergency department on 09/18/2020 for shortness of breath for the past 1 week. The patient has been having exertional dyspnea. Glioblastoma Multiforme received radiation therapy with ongoing chemotherapy (multifocal tumor with vasogenic edema) Broca aphasia due to above Dyspnea due to Acute bilateral pulmonary embolism Acute DVT in the left leg Macrocytic anemia Thrombocytopenia Obstructive sleep apnea History of hypertension Hyperlipidemia Plan: I spoke with ED physician (Dr. Low) to avoid heparin boluses and to keep the PTT between 45-60. Also it seems that the ED physician contacted the patient's neurologist at [facility] (Dr. Harrell) who agreed that that and the patient can be heparinized without boluses. And to keep the PTT goal between 45-60. Patient was restarted on his home dose of Keppra 1 g twice a day The patient was restarted on his own dose of dexamethasone 3.5 g daily I started the patient on meclizine 12.5mg 1 tab bid PRN. Regarding the macrocytic anemia: I ordered vitamin B12 and folate level. Oncology team has been consulted. The patient is on Protinix 40mg daily for GI prophylaxis. Upon discharge the patient needs to follow-up with his neurologist at [facility] (Dr. Harrell) within 1-2 weeks. We'll defer the rest of the medical management to the primary team. Thank you for the consultation. Handy Bustos MD Neuro-Hospitalist Time with Patient: Greater than 30
--- NOTE | 2020-09-19 13:42 | P.CNPUL ---
History of Present Illness Consult date: 09/19/20 Reason for consult: pulmonary embolism History of present illness: 60-year-old male patient, known history of glioblastoma multiforme he diagnosed on December 2019 treated with radiation therapy and currently being treated with oral medication and the patient is receiving Temador once a month. He was brought into the emergency department because of acute onset shortness of breath. Denied having any pleurisy. No fever. No chills. No cough or sputum production. No hemoptysis. No swelling in lower extremity. D-dimer was elevated and subsequently the patient was given a Doppler of the lower extremity and the patient was found to have an acute DVT of the left lower extremity. No DVTs on the right. The CT angiogram showed large bilateral lower lobe pulmonary emboli and there is also patchy infiltration of the lung bases bilaterally posteriorly. There is some airspace disease in the left lower lobe. The patient is on IV heparin and the patient has a platelet count of 125 and dropped down to 115. The PTT is therapeutic at 60.9. No previous history of DVT or pulmonary embolism. He has been essentially sedentary because of an underlying brain tumor. No seizure activity. He is known to me from the sleep center. He has severe obstructive sleep apnea with an AHI of 52 and the patient is on APAP treatment with a maximum pressure of 14. He is also known to have COPD and hypertension. Review of Systems Constitutional: Reports fatigue, Reports weakness Eyes: denies as per HPI, denies blurred vision, denies bulging eye, denies decreased vision, denies diplopia, denies discharge, denies dry eye, denies irritation, denies itching, denies pain, denies photophobia, denies loss of peripheral vision, denies loss of vision, denies tunnel vision/blind spots Ears: deny: decreased hearing, ear discharge, earache, tinnitus Ears, nose, mouth and throat: Reports as per HPI Breasts: absent: as per HPI, gynecomastia Cardiovascular: Reports decreased exercise tolerance, Reports dyspnea on exertion Respiratory: Reports dyspnea Gastrointestinal: Reports as per HPI Genitourinary: Reports as per HPI Musculoskeletal: Reports as per HPI Musculoskeletal: absent: ankle pain, ankle stiffness, ankle swelling Integumentary: Reports as per HPI Neurological: Reports as per HPI Psychiatric: Reports as per HPI Endocrine: Reports as per HPI Hematologic/Lymphatic: Reports as per HPI Allergic/Immunologic: Reports as per HPI Past Medical History Past Medical History: Cancer, GERD/Reflux, Hypertension, Sleep Apnea/CPAP/BIPAP Additional Past Medical History / Comment(s): dx in december 2019 with Brain CA, currently going through radiation and chemo History of Any Multi-Drug Resistant Organisms: None Reported Past Surgical History: Orthopedic Surgery Past Anesthesia/Blood Transfusion Reactions: No Reported Reaction Additional Past Anesthesia/Blood Transfusion Reaction / Comment(s): no hx blood transfusion Past Psychological History: No Psychological Hx Reported Smoking Status: Former smoker Past Alcohol Use History: Occasional Past Drug Use History: None Reported - Past Family History Father Family Medical History: Myocardial Infarction ([place]) Additional Family Medical History / Comment(s): at age 49-[place] Mother Family Medical History: No Reported History Additional Family Medical History / Comment(s): . Medications and Allergies Home Medications Medication Instructions Recorded Confirmed Type Metoprolol Succinate (ER) [Toprol 50 mg PO DAILY 10/17/15 09/18/20 History Xl] Simvastatin 40 mg PO W/SUPPER 10/17/15 09/18/20 History Losartan/Hydrochlorothiazide 1 tab PO DAILY 12/06/19 09/18/20 History [Losartan-Hctz 100-25 mg Tab] amLODIPine [Norvasc] 5 mg PO DAILY 12/06/19 09/18/20 History Docusate [Colace] 100 - 200 mg PO DAILY PRN 04/06/20 09/18/20 History Omeprazole [PriLOSEC] 20 mg PO DAILY 04/06/20 09/18/20 History levETIRAcetam [Keppra] 1,000 mg PO BID-W/MEALS 04/06/20 09/18/20 History Dexamethasone 0.5 mg PO DAILY 09/18/20 09/18/20 History Sulfamethox-Tmp 800-160Mg [Bactrim 1 tab PO MOWEFR 09/18/20 09/18/20 History DS 800-160 mg] dexAMETHasone [Dexamethasone] 3 mg PO DAILY 09/18/20 09/18/20 History ondansetron HCL [Zofran] 8 mg PO TID PRN 09/18/20 09/18/20 History Apixaban [Eliquis Starter Pack 0 mg PO DIRECTED 30 Days #1 pack 09/19/20 Rx (for VTE)] Allergies Allergy/AdvReac Type Severity Reaction Status Date / Time No Known Allergies Allergy Verified 09/18/20 17:38 Physical Exam Vitals: Vital Signs Temp Pulse Pulse Resp BP BP Pulse Ox 09/19/20 07:52 97.6 F 81 18 145/92 96 09/19/20 03:57 97.4 F L 66 17 128/83 95 09/19/20 03:51 97.4 F L 66 17 128/83 95 09/19/20 02:00 66 17 09/19/20 00:00 98.1 F 73 16 105/81 98 09/18/20 20:00 97.6 F 73 16 128/102 96 09/18/20 18:32 83 17 110/77 96 09/18/20 17:11 97 16 92/70 100 09/18/20 16:29 98.5 F 108 H 18 85/70 97 Intake and Output 09/18/20 09/19/20 09/19/20 22:59 06:59 14:59 Intake Total 582.02 237.98 Output Total 0 Balance 582.02 237.98 Intake: IV 450 Sodium Chloride 0.9% 1, 450 000 ml @ 75 mls/hr IV . [id number] [facility] Rx#:[id number] Intake, IV Titration 132.02 117.98 Amount Heparin Sod,Pork in 0.45% 132.02 117.98 NaCl 25,000 unit In 0.45 % NaCl 1 250ml.bag @ 18 UNITS/KG/HR 20.003 mls/hr IV .[id number] [facility] Rx#: [id number] Oral 120 Output: Urine 0 Other: Voiding Method Urinal Urinal Urinal Weight 111.13 kg 115 kg GENERAL: The patient is alert and oriented x3, not in any acute distress. Obese Head exam was generally normal. There was no scleral icterus or corneal arcus. Mucous membranes were moist. HEENT: Pupils are round and equally reacting to light. EOMI. No scleral icterus. No conjunctival pallor. Normocephalic, atraumatic. No pharyngeal erythema. No thyromegaly. CARDIOVASCULAR: S1 and S2 present. No murmurs, rubs, or gallops. PULMONARY: Chest is clear to auscultation, no wheezing or crackles. ABDOMEN: Soft, nontender, nondistended, normoactive bowel sounds. No palpable organomegaly. MUSCULOSKELETAL: No joint swelling or deformity. EXTREMITIES: No cyanosis, clubbing, or pedal edema. NEUROLOGICAL: Gross neurological examination did not reveal any focal deficits. Examination of the skin revealed no evidence of significant rashes, suspicious appearing nevi or other concerning lesions. Results - Laboratory Findings CBC and BMP: 09/19/20 06:50 09/19/20 06:50 PT/INR, D-dimer PT 9.4 sec (9.0-12.0) 09/19/20 06:50 INR 0.9 (<1.2) 09/19/20 06:50 D-Dimer 6.54 mg/L FEU (<0.60) H 09/18/20 17:11 Abnormal lab findings: Abnormal Labs 09/18/20 09/18/20 09/18/20 17:11 17:11 17:11 RBC 3.69 L Hgb 12.9 L Hct 37.3 L MCV 100.9 H MCH Plt Count 125 L Neutrophils # 9.2 H Lymphocytes # 0.2 L APTT 20.8 L D-Dimer 6.54 H Sodium 135 L BUN 25 H Glucose 177 H Plasma Lactic Acid Isaiah Total Protein 5.8 L Albumin 2.9 L 09/18/20 09/19/20 09/19/20 17:11 01:10 06:50 RBC 3.13 L Hgb 11.2 L Hct 32.3 L MCV 103.4 H MCH 35.7 H Plt Count 115 L Neutrophils # Lymphocytes # 0.6 L APTT 44.3 H D-Dimer Sodium BUN Glucose Plasma Lactic Acid Isaiah 2.3 H* Total Protein Albumin 09/19/20 06:50 RBC Hgb Hct MCV MCH Plt Count Neutrophils # Lymphocytes # APTT 60.9 H D-Dimer Sodium BUN Glucose Plasma Lactic Acid Isaiah Total Protein Albumin - Diagnostic Findings Chest x-ray: image reviewed CT scan - chest: image reviewed Assessment and Plan Plan: 1 acute bilateral pulmonary embolism with a left lower extremity DVT, provoked by underlying malignancy and the patient has been diagnosed having glioblastoma multiforme of the brain 2 shortness of breath secondary to above 3 bibasilar pulmonary infiltrates/atelectasis secondary to above 4 glioblastoma multiforme, nonsurgical, being treated with oral chemotherapy 5 obstructive sleep apnea minute on CPAP therapy on outpatient basis 6 COPD 7 hypertension 8 thrombocytopenia, likely consumptive Plan Continue IV heparin and switch this patient ultimately to Eliquis as long as there is no contraindications knowing that he has a [employer] tumor. Monitor the platelet count and watch for any significant thrombocytopenia Obtain echocardiogram to assess LV function and RV function and pulmonary hypertension Oncology consultation regarding details of his brain tumor and treatment process We'll continue to follow
[2020-09-19] MEDS: ATORVASTATIN 20 MG TAB PO SCH (16:40)
[2020-09-19] MEDS: APIXABAN 5 MG TAB PO SCH (16:40)
[2020-09-20] MEDS: PANTOPRAZOLE 40 MG TABLET PO SCH (06:54)
[2020-09-20] MEDS: levETIRAcetam 500 MG TAB PO SCH ×2 (06:55→17:16)
[2020-09-20] MEDS: APIXABAN 5 MG TAB PO SCH ×2 (08:00→20:29)
[2020-09-20] MEDS: METOPROLOL SUCCINATE (ER) 50 MG TAB.ER.24H PO SCH (08:00)
[2020-09-20] MEDS: amLODIPine 5 MG TAB PO SCH (08:00)
[2020-09-20] MEDS: SULFAMETHOX-TMP 800-160MG 1 EACH TAB PO SCH (08:01)
[2020-09-20 08:37] LABS: INR 0.9 (<1.2); Prothrombin Time 9.7 sec (9.0-12.0)
--- NOTE | 2020-09-20 09:42 | P.PN ---
Subjective Progress Note Date: 09/20/20 60-year-old male patient, known history of glioblastoma multiforme he diagnosed on December 2019 treated with radiation therapy and currently being treated with oral medication and the patient is receiving Temador once a month. He was brought into the emergency department because of acute onset shortness of breath. Denied having any pleurisy. No fever. No chills. No cough or sputum production. No hemoptysis. No swelling in lower extremity. D-dimer was elevated and subsequently the patient was given a Doppler of the lower extremity and the patient was found to have an acute DVT of the left lower extremity. No DVTs on the right. The CT angiogram showed large bilateral lower lobe pulmonary emboli and there is also patchy infiltration of the lung bases bilaterally posteriorly. There is some airspace disease in the left lower lobe. The patient is on IV heparin and the patient has a platelet count of 125 and dropped down to 115. The PTT is therapeutic at 60.9. No previous history of DVT or pulmonary embolism. He has been essentially sedentary because of an underlying brain tumor. No seizure activity. He is known to me from the sleep center. He has severe obstructive sleep apnea with an AHI of 52 and the patient is on APAP treatment with a maximum pressure of 14. He is also known to have COPD and hypertension. On 09/20/2020 patient seen in follow-up on selective care unit, he is calm and comfortable, resting in bed, appears to be in no acute distress, any dyspnea, no chest pain, no hemoptysis, blood pressure is stable, vital signs have been stable on room air, pulse ox is 97%, no fever or chills, lung sounds are clear, diminished at the bases. Patient has been started on Eliquis, heparin drip has been discontinued. he is alert and oriented X3. Troponins were negative 3, BNP was 250. The chest showed no evidence of right heart enlargement. It also showed mild patchy peripheral infiltrates in the posterior lower lung wharton. There is no cough, no shortness of breath, no leukocytosis, no fever or chills Objective - Vital Signs Vital signs: Vital Signs Temp 97.5 F L 09/20/20 07:57 Pulse 75 09/20/20 07:57 Resp 16 09/20/20 07:57 BP 132/87 09/20/20 07:57 Pulse Ox 97 09/20/20 07:57 Intake & Output 09/19/20 09/20/20 09/20/20 18:59 06:59 18:59 Intake Total 477.98 237 Output Total 200 300 Balance 277.98 -300 237 Weight 112.2 kg Intake: Intake, IV Titration 117.98 Amount Heparin Sod,Pork in 0.45% 117.98 NaCl 25,000 unit In 0.45 % NaCl 1 250ml.bag @ 18 UNITS/KG/HR 20.003 mls/hr IV .[id number] [facility] Rx#: [id number] Oral 360 237 Output: Urine 200 300 Other: Voiding Method Urinal Urinal Urinal - Exam GENERAL EXAM: Alert,A pleasant, 60-year-old white male, on room air with pulse ox of 97%, comfortable in no apparent distress. HEAD: Normocephalic/atraumatic. EYES: Normal reaction of pupils, equal size. Conjunctiva pink, sclera white. NOSE: Clear with pink turbinates. THROAT: No erythema or exudates. NECK: No masses, no JVD, no thyroid enlargement, no adenopathy. CHEST: No chest wall deformity. Symmetrical expansion. LUNGS: Equal air entry with no crackles, wheeze, rhonchi or dullness. CVS: Regular rate and rhythm, normal S1 and S2, no gallops, no murmurs, no rubs ABDOMEN: Soft, nontender. No hepatosplenomegaly, normal bowel sounds, no guarding or rigidity. EXTREMITIES: No clubbing, no edema, no cyanosis, 2+ pulses and upper and lower extremities. MUSCULOSKELETAL: Muscle strength and tone normal. SPINE: No scoliosis or deformity SKIN: No rashes CENTRAL NERVOUS SYSTEM: Alert and oriented -3. No focal deficits, tone is normal in all 4 extremities. PSYCHIATRIC: Alert and oriented -3. Appropriate affect. Intact judgment and insight. - Labs CBC & Chem 7: 09/19/20 06:50 09/19/20 06:50 Assessment and Plan Plan: Assessment: #1. acute bilateral pulmonary embolism with a left lower extremity DVT, provoked by underlying malignancy and the patient has been diagnosed having glioblastoma multiforme of the brain #2. shortness of breath secondary to above #3. bibasilar pulmonary infiltrates/atelectasis secondary to above #4. glioblastoma multiforme, nonsurgical, being treated with oral chemotherapy #5. obstructive sleep apnea minute on CPAP therapy on outpatient basis #6. COPD #7. hypertension #8. thrombocytopenia, likely consumptive Plan: Continue Eliquis, the patient remains stable, we, maintaining stable O2 saturations on room air above 95%, troponins were negative 3, proBNP is within normal limits, no acute events overnight, vital signs have been stable, will obtain echocardiogram. We'll continue to follow I performed a history & physical examination of the patient and discussed their management with my nurse practitioner, aMribel Soto. I reviewed the nurse practitioner's note and agree with the documented findings and plan of care. Lung sounds are positive for diminished breath sounds at the bases. The findings and the impression was discussed with the patient. I attest to the documentation by the nurse practitioner. Time with Patient: Less than 30
--- NOTE | 2020-09-20 11:20 | ECHOF ---
Referral Reason:bilateral pulmonary embolism MEASUREMENTS -------- HEIGHT: 180.3 cm WEIGHT: 112.0 kg BP: 132/87 RVIDd: 3.2 cm (< 3.3) IVSd: 1.3 cm (0.6 - 1.1) LVIDd: 3.7 cm (3.9 - 5.3) LVPWd: 1.3 cm (0.6 - 1.1) IVSs: 1.7 cm LVIDs: 2.6 cm LVPWs: 1.7 cm LA Diam: 3.0 cm (2.7 - 3.8) Ao Diam: 3.4 cm (2.0 - 3.7) AV Cusp: 2.1 cm (1.5 - 2.6) MV EXCURSION: 13.644 mm (> 18.000) MV EF SLOPE: 52 mm/s (70 - 150) EPSS: 0.4 cm MV E Brian: 0.59 m/s MV DecT: 300 ms MV A Brian: 0.65 m/s MV E/A Ratio: 0.91 FINDINGS -------- Sinus rhythm. This was a technically adequate study. The left ventricular size is normal. There is mild concentric left ventricular hypertrophy. Overa ll left ventricular systolic function is normal with, an EF between 55 - 60 %. The right ventricle is normal in size. The left atrium is normal in size. The right atrial size is normal. The aortic valve is trileaflet, and appears structurally normal. No aortic stenosis or regurgitation. The mitral valve is normal. There is trace mitral regurgitation. The tricuspid valve was not well visualized. Trace tricuspid regurgitation present. The pulmonic valve was not well visualized. The aortic root size is normal. IVC Not well visulized. Echo free space may represent effusion or a pericardial fat pad. CONCLUSIONS -------- 1. There is mild concentric left ventricular hypertrophy. 2. Overall left ventricular systolic function is normal with, an EF between 55 - 60 %. 3. The aortic valve is trileaflet, and appears structurally normal. No aortic stenosis or regurgitati on. 4. There is trace mitral regurgitation. 5. Echo free space may represent effusion or a pericardial fat pad. PUBLIC INTERVIEWER: Bianca Lentz [facility]
--- NOTE | 2020-09-20 11:44 | P.PN ---
Subjective Progress Note Date: 09/20/20 The patient was seen at bedside and he feels the same today compared to yesterday. Denies of any new weakness, numbness or visual disturbance. Objective - Vital Signs Vital signs: Vital Signs Temp 97.5 F L 09/20/20 07:57 Pulse 75 09/20/20 07:57 Resp 16 09/20/20 07:57 BP 132/87 09/20/20 07:57 Pulse Ox 97 09/20/20 07:57 Intake & Output 09/19/20 09/20/20 09/20/20 18:59 06:59 18:59 Intake Total 477.98 237 Output Total 200 300 Balance 277.98 -300 237 Weight 112.2 kg Intake: Intake, IV Titration 117.98 Amount Heparin Sod,Pork in 0.45% 117.98 NaCl 25,000 unit In 0.45 % NaCl 1 250ml.bag @ 18 UNITS/KG/HR 20.003 mls/hr IV .[id number] [facility] Rx#: [id number] Oral 360 237 Output: Urine 200 300 Other: Voiding Method Urinal Urinal Urinal - Exam GENERAL: The patient is lying in bed and is not in acute distress. NEUROLOGICAL: Higher mental function: The patient is awake, alert, oriented to self and time. He stated he was at [facility]. Patient is following simple commands. Has motor aphasia. Has paraphrasic error. Some difficulty with repeat. No neglect. Cranial nerves: The pupils are round, equal and reactive to light and accommodation. Visual wharton are full to confrontation throughout. Extraocular movement is intact no nystagmus is noted. Facial sensation is normal to touch throughout. The facial strength is normal throughout. Hearing is normal bilaterally to hand rub. Tongue is midline and moved [id number] without any difficulty. No dysarthria is noted. Shoulder shrug is normal bilaterally. Motor: Gait was attempted felt dizzy so had to abort it. The strength is 5-/5 in bilateral hand gasfitter. Otherwise 5 over 5 throughout. Normal tone and bulk. Cerebellum: Normal finger to nose bilaterally. Sensation: Sensation is normal to touch throughout. Reflexes (right/left): 2+ throughout Plantars: RIght is upgoing at baseline while left is downgoing. - Labs CBC & Chem 7: 09/19/20 06:50 09/19/20 06:50 Assessment and Plan Assessment: This is a 60-year-old gentleman with medical history of Glioblastoma Multiforme undergoing radiation and chemotherapy per records that that presented to the emergency department on 09/18/2020 for shortness of breath for the past 1 week. The patient has been having exertional dyspnea. 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 Also it seems that the ED physician contacted the patient's neurologist at [facility] (Dr. Harrell) who agreed that that and the patient can be heparinized without boluses. And to keep the PTT goal between 45-60. Per patient's she stated the his neurologist notified her that she does not want him to be on Coumadin. Currrently the patient is on Eliquis 10mg 1 tab bid. Continue home dose of Keppra 1 g twice a day Continue home dose of dexamethasone 3.5 g daily On meclizine 12.5mg 1 tab bid PRN for dizziness Regarding the macrocytic anemia: Vitamin B12: 318 (which is low normal), therefore I started the patient on Vitamin B12 1000mcg daily. Pending RBC folate level. Oncology team are on board The patient is on Protinix 40mg daily for GI prophylaxis. Upon discharge the patient needs to follow-up with his neurologist at [facility] (Dr. Harrell) within 1-2 weeks. We'll defer the rest of the medical management to the primary team. No further work-up from neurology perspective. Handy Bustos MD Neuro-Hospitalist Time with Patient: Less than 30
[2020-09-20] MEDS: SODIUM CHLORIDE 0.9% 1,000 ML IV SCH (13:29)
[2020-09-20] MEDS: CYANOCOBALAMIN 500 MCG TAB PO SCH (13:38)
--- NOTE | 2020-09-20 15:10 | P.PN ---
Subjective Progress Note Date: 09/20/20 Principal diagnosis: Bilateral PE, LLE DVT. GBM on treatment In f/u today pt is hard to keep on topic but, no distress, he denies epistaxis, coughing up blood, nausea or vomiting, no blood in toilet after stool or urine Objective - Vital Signs Vital signs: Vital Signs Temp 97.7 F 09/20/20 12:15 Pulse 73 09/20/20 12:15 Resp 16 09/20/20 12:15 BP 118/87 09/20/20 12:15 Pulse Ox 96 09/20/20 12:15 Intake & Output 09/19/20 09/20/20 09/20/20 18:59 06:59 18:59 Intake Total 477.98 477 Output Total 200 300 Balance 277.98 -300 477 Weight 112.2 kg Intake: Intake, IV Titration 117.98 Amount Heparin Sod,Pork in 0.45% 117.98 NaCl 25,000 unit In 0.45 % NaCl 1 250ml.bag @ 18 UNITS/KG/HR 20.003 mls/hr IV .[id number] [facility] Rx#: [id number] Oral 360 477 Output: Urine 200 300 Other: Voiding Method Urinal Urinal Urinal # Voids 1 # Bowel Movements 1 - Constitutional Constitutional Comment(s): Govea facies General appearance: Present: cooperative, no acute distress - EENT Eyes: Present: anicteric sclerae, EOMI ENT: Present: hearing grossly normal - Respiratory Details: resp even and unlabored - Musculoskeletal Musculoskeletal: Present: generalized weakness - Psychiatric Psychiatric: Present: A&O x's 3, appropriate affect - Labs CBC & Chem 7: 09/19/20 06:50 09/19/20 06:50 Labs: Abnormal Lab Results - Last 24 Hours (Table) 09/19/20 Range/Units 06:50 RBC Folate 1,138 H (280 - 791) ng/mL - Imaging and Cardiology ECHO report reviewed Assessment and Plan (1) Pulmonary embolism Current Visit: Yes Status: Acute Priority: High Code(s): I26.99 - OTHER PULMONARY EMBOLISM WITHOUT ACUTE COR PULMONALE SNOMED Code(s): 13168829 (2) DVT (deep venous thrombosis) Current Visit: Yes Status: Acute Priority: High Code(s): I82.409 - ACUTE EMBOLISM AND THOMBOS UNSP DEEP VN UNSP LOWER EXTREMITY SNOMED Code(s): 705850432 (3) Glioblastoma multiforme Narrative/Plan: Pt will return to his Primary Oncologist as [facility] to continue treatment Current Visit: No Status: Chronic Priority: Medium Code(s): C71.9 - MALIGNANT NEOPLASM OF BRAIN, UNSPECIFIED SNOMED Code(s): 561669498 Plan: ER spoke with Primary Onc re: bilateral PE and LLE DVT. Recommendations to avoid coumadin due to numerous medication interactions with pt treatment regimen. Eliquis copay acceptable. Pt started on the same.
--- NOTE | 2020-09-20 15:50 | P.PN ---
Subjective Progress Note Date: 09/20/20 Patient is a pleasant 60-year-old male came in with complaints of shortness of breath found to have bilateral PE presently shortness of breath significantly improved does have history of COPD denied any chest pain at this time. Patient does have history of glioblastoma multiforme, undergoing radiation therapy and chemotherapy. He is also found to have a DVT of the left leg. Patient is presently on heparin drip. Patient denied any fever chills patient denied any cough. Patient had some infiltrate in the left lower lung wharton not consistent with pneumonia. Patient doesn't have any leukocytosis patient will be transitioned to Eliquis later today and possibility of discharge tomorrow. 09/20/2020 Patient is seen and evaluated in follow-up with no acute overnight issues. Patient is off of the heparin drip and transitioned to oral Eliquis. Multiple medical consultations following including neurology, oncology, and pulmonary. Patient currently receiving an echo and report is pending. Patient denies any shortness of breath, chest pain, or palpitations. Patient is afebrile. Patient denies any nausea or vomiting and has been tolerating diet. Review of systems: Constitutional: No reports of fatigue, fever, or chills Cardiovascular: No reports of chest pain or palpitations Respiratory: No reports of shortness of breath or cough GI: No reports of nausea, vomiting, or diarrhea : No reports of dysuria or retention Neurovascular: No reports of weakness or numbness All medications have been reviewed Objective - Vital Signs Vital signs: Vital Signs Temp 97.5 F L 09/20/20 07:57 Pulse 75 09/20/20 07:57 Resp 16 09/20/20 07:57 BP 132/87 09/20/20 07:57 Pulse Ox 97 09/20/20 07:57 Intake & Output 09/19/20 09/20/20 09/20/20 18:59 06:59 18:59 Intake Total 477.98 237 Output Total 200 300 Balance 277.98 -300 237 Weight 112.2 kg Intake: Intake, IV Titration 117.98 Amount Heparin Sod,Pork in 0.45% 117.98 NaCl 25,000 unit In 0.45 % NaCl 1 250ml.bag @ 18 UNITS/KG/HR 20.003 mls/hr IV .[id number] [facility] Rx#: [id number] Oral 360 237 Output: Urine 200 300 Other: Voiding Method Urinal Urinal Urinal - Exam GENERAL: The patient is alert and oriented x3, not in any acute distress. Obese HEENT: Pupils are round and equally reacting to light. EOMI. No scleral icterus. No conjunctival pallor. Normocephalic, atraumatic. No pharyngeal erythema. No thyromegaly. CARDIOVASCULAR: S1 and S2 present. No murmurs, rubs, or gallops. PULMONARY: Chest is clear to auscultation, no wheezing or crackles. ABDOMEN: Soft, obese, nontender, nondistended, normoactive bowel sounds. No palpable organomegaly. MUSCULOSKELETAL: No joint swelling or deformity. EXTREMITIES: No cyanosis, clubbing, or pedal edema. NEUROLOGICAL: Gross neurological examination did not reveal any focal deficits. SKIN: No rashes. - Labs CBC & Chem 7: 09/19/20 06:50 09/19/20 06:50 Assessment and Plan Assessment: -Acute bilateral PE: Patient recently discontinued IV heparin and transitioned to by mouth eliquis. Patient does have a glioblastoma multiforme, patient need to be on anticoagulation until after 3-6 months after he goes into relapse for glioblastoma. Patient follows with [facility] and will also follow- up outpatient with neurology -Glioblastoma multiforme : No evidence of further intracranial bleed on the CAT scan that was done is as stated before he was started on anticoagulation. Patient was evaluated by oncology as well. -COPD without any acute exacerbation -Sleep apnea uses CPAP machine which will be continued -Hypertension patient home medications resumed, amlodipine continuing to hold lisinopril/hydrochlorothiazide at this time and will monitor vital signs closely -GI prophylaxis with Protonix Plan: Continue with current medications and multiple consultations. 2-D echo currently being obtained and pending at this time. Patient was transitioned to oral anticoagulant and will continue. Patient lives with at home and arranging for home care in the outpatient setting. Case management is following and arranging discharge planning needs. Anticipate discharge in 24 hours.
[2020-09-20] MEDS: DEXAMETHASONE PO SCH ×2 (17:14)
[2020-09-20] MEDS: ATORVASTATIN 20 MG TAB PO SCH (17:16)
[2020-09-21] MEDS: PANTOPRAZOLE 40 MG TABLET PO SCH (06:49)
[2020-09-21] MEDS: levETIRAcetam 500 MG TAB PO SCH (06:49)
[2020-09-21 08:17] VITALS: RESP 18; TEMP 97.6
[2020-09-21 08:17] LABS: INR 0.9 (<1.2); Prothrombin Time 9.6 sec (9.0-12.0)
[2020-09-21] MEDS: SODIUM CHLORIDE 0.9% 1,000 ML IV SCH (08:18)
[2020-09-21] MEDS: CYANOCOBALAMIN 500 MCG TAB PO SCH (08:18)
[2020-09-21] MEDS: APIXABAN 5 MG TAB PO SCH (08:19)
[2020-09-21] MEDS: METOPROLOL SUCCINATE (ER) 50 MG TAB.ER.24H PO SCH (08:19)
[2020-09-21] MEDS: amLODIPine 5 MG TAB PO SCH (08:19)
[2020-09-21] MEDS: DEXAMETHASONE PO SCH ×2 (09:01)
--- NOTE | 2020-09-21 09:37 | P.PN ---
Subjective Progress Note Date: 09/21/20 60-year-old male patient, known history of glioblastoma multiforme he diagnosed on December 2019 treated with radiation therapy and currently being treated with oral medication and the patient is receiving Temador once a month. He was brought into the emergency department because of acute onset shortness of breath. Denied having any pleurisy. No fever. No chills. No cough or sputum production. No hemoptysis. No swelling in lower extremity. D-dimer was elevated and subsequently the patient was given a Doppler of the lower extremity and the patient was found to have an acute DVT of the left lower extremity. No DVTs on the right. The CT angiogram showed large bilateral lower lobe pulmonary emboli and there is also patchy infiltration of the lung bases bilaterally posteriorly. There is some airspace disease in the left lower lobe. The patient is on IV heparin and the patient has a platelet count of 125 and dropped down to 115. The PTT is therapeutic at 60.9. No previous history of DVT or pulmonary embolism. He has been essentially sedentary because of an underlying brain tumor. No seizure activity. He is known to me from the sleep center. He has severe obstructive sleep apnea with an AHI of 52 and the patient is on APAP treatment with a maximum pressure of 14. He is also known to have COPD and hypertension. On 09/20/2020 patient seen in follow-up on selective care unit, he is calm and comfortable, resting in bed, appears to be in no acute distress, any dyspnea, no chest pain, no hemoptysis, blood pressure is stable, vital signs have been stable on room air, pulse ox is 97%, no fever or chills, lung sounds are clear, diminished at the bases. Patient has been started on Eliquis, heparin drip has been discontinued. he is alert and oriented X3. Troponins were negative 3, BNP was 250. The chest showed no evidence of right heart enlargement. It also showed mild patchy peripheral infiltrates in the posterior lower lung wharton. There is no cough, no shortness of breath, no leukocytosis, no fever or chills. On 09/21/2020 patient seen in follow-up on selective care unit. We can alert, breathing comfortably, he is currently on room air pulse ox of 96%, no acute events overnight, vital signs have been stable, blood pressure has been stable, patient has been transitioned to oral anticoagulation form of Eliquis. Echocardiogram has been reviewed showing EF of 55-60%, right ventricle is normal in size. Denies any shortness of breath, denies any chest pain or hemoptysis. Objective - Vital Signs Vital signs: Vital Signs Temp 97.6 F 09/21/20 08:15 Pulse 93 09/21/20 08:15 Resp 18 09/21/20 08:15 BP 120/83 09/21/20 08:15 Pulse Ox 96 09/21/20 08:15 Intake & Output 09/20/20 09/21/20 09/21/20 18:59 06:59 18:59 Intake Total 677 420 Balance 677 420 Weight 117.1 kg Intake: Oral 677 420 Other: Voiding Method Urinal Urinal Urinal # Voids 1 1 1 # Bowel Movements 1 - Exam GENERAL EXAM: Alert,A pleasant, 60-year-old white male, on room air with pulse ox of 97%, comfortable in no apparent distress. HEAD: Normocephalic/atraumatic. EYES: Normal reaction of pupils, equal size. Conjunctiva pink, sclera white. NOSE: Clear with pink turbinates. THROAT: No erythema or exudates. NECK: No masses, no JVD, no thyroid enlargement, no adenopathy. CHEST: No chest wall deformity. Symmetrical expansion. LUNGS: Equal air entry with no crackles, wheeze, rhonchi or dullness. CVS: Regular rate and rhythm, normal S1 and S2, no gallops, no murmurs, no rubs ABDOMEN: Soft, nontender. No hepatosplenomegaly, normal bowel sounds, no guarding or rigidity. EXTREMITIES: No clubbing, no edema, no cyanosis, 2+ pulses and upper and lower extremities. MUSCULOSKELETAL: Muscle strength and tone normal. SPINE: No scoliosis or deformity SKIN: No rashes CENTRAL NERVOUS SYSTEM: Alert and oriented -3. No focal deficits, tone is normal in all 4 extremities. PSYCHIATRIC: Alert and oriented -3. Appropriate affect. Intact judgment and insight. - Labs CBC & Chem 7: 09/19/20 06:50 09/19/20 06:50 Labs: Abnormal Lab Results - Last 24 Hours (Table) 09/19/20 Range/Units 06:50 RBC Folate 1,138 H (280 - 791) ng/mL Assessment and Plan Plan: Assessment: #1. acute bilateral pulmonary embolism with a left lower extremity DVT, provoked by underlying malignancy and the patient has been diagnosed having glioblastoma multiforme of the brain #2. shortness of breath secondary to above #3. bibasilar pulmonary infiltrates/atelectasis secondary to above #4. glioblastoma multiforme, nonsurgical, being treated with oral chemotherapy #5. obstructive sleep apnea minute on CPAP therapy on outpatient basis #6. COPD #7. hypertension #8. thrombocytopenia, likely consumptive Plan: Date Charles has been reviewed, right ventricle is normal in size, no evidence of right heart strain, patient's vital signs are stable, blood pressure stable, patient is on room air, no worsening dyspnea and no chest complaints, continue oral anticoagulation, from pulmonary perspective he can be considered for discharge once cleared by medicine. I performed a history & physical examination of the patient and discussed their management with my nurse practitioner, Maribel Soto. I reviewed the nurse practitioner's note and agree with the documented findings and plan of care. Lung sounds are positive for diminished breath sounds at the bases. The findings and the impression was discussed with the patient. I attest to the documentation by the nurse practitioner. Time with Patient: Less than 30
[2020-09-21 11:51] VITALS: BP 97/72; PULSE 96
--- NOTE | 2020-09-21 15:44 | P.DS ---
Providers Date of admission: 09/18/20 19:16 Expected date of discharge: 09/21/20 Attending physician: Claire La Consults: 09/18/20 19:16 Consult Physician Urgent Consulting Provider: Handy Bustos Consult Reason/Comments: brain cancer on active chemo, b/l pe, need for anticogulation Do you want consulting provider notified?: Yes Consult Physician Urgent Consulting Provider: Jesusita Maurer Consult Reason/Comments: b/l pe Do you want consulting provider notified?: Yes 09/18/20 19:25 Consult Physician Urgent Consulting Provider: Caesar Welsh Consult Reason/Comments: acute b/l pe, hx brain ca on chemo Do you want consulting provider notified?: Yes Primary care physician: Jesusita Maurer Hospital Course: Final Diagnosis -Acute bilateral PE -Left lower extremity deep vein thrombosis -Glioblastoma multiforme -COPD without any acute exacerbation -Sleep apnea uses CPAP machine -Hypertension -GI prophylaxis Discharge disposition Patient is being discharged in a stable condition with guarded prognosis to home. Patient will continue with home care in the outpatient setting. Patient will follow-up with Dr. Reyna Vega upon discharge. Patient to follow-up with [facility] in the outpatient setting. Total time taken is greater than 35 minutes. Hospital course This is a 60-year-old male who was recently admitted with shortness of breath and found to have bilateral pulmonary embolism and was being closely monitored. A full medical consultations following. Patient was initiated on IV heparin and transitioned oral Eiquis and will continue in the outpatient setting. Patient does have neurology at the [facility] for glioblastoma multiform and instructed to follow-up with them as scheduled. Patient continues to be weak and requires assistance although is refusing rehab but is agreeable to home care. Home care has been arranged. Patient will follow up with pulmonary in the outpatient setting. Currently no reports of chest pain, shortness of breath, or palpitations. Patient is afebrile. No reports of nausea or vomiting and patient is tolerating diet. Guarded prognosis. On exam vital signs are stable. Temp is 97.6F, pulse is 96, respirations are 18, blood pressure is 97/72, oxygen saturation is 98% on room air. Cardio S1, S2 are muffled. Respiratory shows diminished breath sounds at the bases with no wheezing or rhonchi noted. Abdomen is soft and nontender. Nervous system shows no focal deficits. Please refer to medication reconciliation sheet for a list of medications. Patient Condition at Discharge: Stable Plan - Discharge Summary Discharge Rx Participant: Yes New Discharge Prescriptions: New Meclizine [Antivert] 12.5 mg PO BID PRN #20 tablet PRN Reason: Vertigo Apixaban [Eliquis Starter Pack (for VTE)] 0 mg PO DIRECTED 30 Days #1 pack Cyanocobalamin [Vitamin B-12] 1,000 mcg PO DAILY 30 Days #60 tablet Continue Simvastatin 40 mg PO W/SUPPER Metoprolol Succinate (ER) [Toprol XL] 50 mg PO DAILY amLODIPine [Norvasc] 5 mg PO DAILY Docusate [Colace] 100 - 200 mg PO DAILY PRN PRN Reason: Constipation levETIRAcetam [Keppra] 1,000 mg PO BID-W/MEALS Omeprazole [PriLOSEC] 20 mg PO DAILY Sulfamethox-Tmp 800-160Mg [Bactrim DS 800-160 mg] 1 tab PO MOWEFR dexAMETHasone [Dexamethasone] 3 mg PO DAILY Dexamethasone 0.5 mg PO DAILY ondansetron HCL [Zofran] 8 mg PO TID PRN PRN Reason: Nausea And Vomiting Discontinued Losartan/Hydrochlorothiazide [Losartan-Hctz 100-25 mg Tab] 1 tab PO DAILY Discharge Medication List Metoprolol Succinate (ER) [Toprol XL] 50 mg PO DAILY 10/17/15 [History] Simvastatin 40 mg PO W/SUPPER 10/17/15 [History] amLODIPine [Norvasc] 5 mg PO DAILY 12/06/19 [History] Docusate [Colace] 100 - 200 mg PO DAILY PRN 04/06/20 [History] Omeprazole [PriLOSEC] 20 mg PO DAILY 04/06/20 [History] levETIRAcetam [Keppra] 1,000 mg PO BID-W/MEALS 04/06/20 [History] Dexamethasone 0.5 mg PO DAILY 09/18/20 [History] Sulfamethox-Tmp 800-160Mg [Bactrim DS 800-160 mg] 1 tab PO MOWEFR 09/18/20 [History] dexAMETHasone [Dexamethasone] 3 mg PO DAILY 09/18/20 [History] ondansetron HCL [Zofran] 8 mg PO TID PRN 09/18/20 [History] Apixaban [Eliquis Starter Pack (for VTE)] 0 mg PO DIRECTED 30 Days #1 pack 09/21/20 [Rx] Cyanocobalamin [Vitamin B-12] 1,000 mcg PO DAILY 30 Days #60 tablet 09/21/20 [Rx] Meclizine [Antivert] 12.5 mg PO BID PRN #20 tablet 09/21/20 [Rx] Follow up Appointment(s)/Referral(s): Reyna Vega, JIMMY [Nurse Practitioner] - 10/20/20 2:30 pm (Friday -earliest available appointment) [facility] Visiting Nurse, [NON-STAFF] - Patient Instructions/Handouts: Deep Vein Thrombosis (DC), Safe Use of Anticoagulants (DC) Activity/Diet/Wound Care/Special Instructions: Prescriptions are at [facility] and they were notified of transfer from [facility] to [facility] Activity Limited until follow-up Follow-up with primary care provider upon discharge Follow up with [facility] Follow up with neurology Continue current diet Continue to monitor blood pressure as lisinopril/hydrochlorothiazide has been discontinued and continue with amlodipine (Norvas) Keep a diary of blood pressure readings for primary care follow-up Discharge Disposition: HOME WITH HOME HEALTH SERVICES
== END 2020-09-21 14:51 | disposition home health service (06) | DRG 175 ==
LOC: EC 16:27 → 3SCARD 19:16
PROVIDERS: ADMIT Internal Medicine; ATTEND Internal Medicine
DX: I26.99 Other pulmonary embolism without acute cor pulmonale (principal); G93.6 Cerebral edema; C71.9 Malignant neoplasm of brain, unspecified; I82.402 Acute embolism and thrombosis of unspecified deep veins of left lower extremity; R47.01 Aphasia; J98.11 Atelectasis; E78.5 Hyperlipidemia, unspecified; D69.6 Thrombocytopenia, unspecified; G47.33 Obstructive sleep apnea (adult) (pediatric); I10 Essential (primary) hypertension; D53.9 Nutritional anemia, unspecified; K21.9 Gastro-esophageal reflux disease without esophagitis; Z79.899 Other long term (current) drug therapy; Z92.3 Personal history of irradiation; Z87.891 Personal history of nicotine dependence; Z86.711 Personal history of pulmonary embolism; Z82.49 Family history of ischemic heart disease and other diseases of the circulatory system; Z98.890 Other specified postprocedural states
CPT/HCPCS: 36415; 70450; 71275; 80048; 80053; 82607; 82747; 83605; 83880; 84484; 85025; 85379; 85610; 85730; 93005; 93306; 93970; 96365; 96366; 99291

== ENCOUNTER 2020-12-02 08:19 | Inpatient (IN) | payer BC ==
[2020-12-02] MEDS ORDERED: SODIUM CHLORIDE 0.9% 1,000 ML IV STA (08:30)
[2020-12-02] MEDS ORDERED: IBUPROFEN 600 MG TAB PO STA (08:37)
[2020-12-02] MEDS ORDERED: ACETAMINOPHEN TAB 500 MG TAB PO STA (08:37)
--- NOTE | 2020-12-02 08:37 | ED ---
General Adult HPI - General Stated complaint: weakness Time Seen by Provider: 12/02/20 08:20 Source: patient, RN notes reviewed, old records reviewed Limitations: altered mental status - History of Present Illness Initial comments: This is a 60-year-old male with a past medical history significant for stage IV metastatic brain tumor. However we don't know where the metastatic disease is because the patient is unable to tell us. Patient was sent in by the because he is becoming weaker over the last few days and he is a little bit altered according to EMS. Patient has had a fever per EMS and was slightly tachycardic on the way in. Patient has no history of any vomiting or diarrhea. According to EMS he had chemo in the end of October. Patient has had no pain no chest pain or abdominal pain. No further history is available at this time - Related Data Home Medications Medication Instructions Recorded Confirmed Metoprolol Succinate (ER) [Toprol 50 mg PO DAILY 10/17/15 12/02/20 XL] Simvastatin 40 mg PO W/SUPPER 10/17/15 12/02/20 amLODIPine [Norvasc] 5 mg PO DAILY 12/06/19 12/02/20 Docusate [Colace] 100 - 200 mg PO DAILY PRN 04/06/20 12/02/20 Omeprazole [PriLOSEC] 20 mg PO DAILY 04/06/20 12/02/20 levETIRAcetam [Keppra] 1,000 mg PO BID-W/MEALS 04/06/20 12/02/20 Dexamethasone 0.5 mg PO DAILY 09/18/20 12/02/20 Sulfamethox-Tmp 800-160Mg [Bactrim 1 tab PO MOWEFR 09/18/20 12/02/20 DS 800-160 mg] dexAMETHasone [Dexamethasone] 3 mg PO DAILY 09/18/20 12/02/20 Acetaminophen with Codeine 1 tab PO Q8H PRN 12/02/20 12/02/20 [Tylenol w/Codeine #4 Tablet] Apixaban [Eliquis] 5 mg PO BID 12/02/20 12/02/20 Cyanocobalamin (Vitamin B-12) 1,000 mcg PO DAILY 12/02/20 12/02/20 [Vitamin B-12] Cyclobenzaprine [Flexeril] 10 mg PO Q8H PRN 12/02/20 12/02/20 Allergies Allergy/AdvReac Type Severity Reaction Status Date / Time No Known Allergies Allergy Verified 12/02/20 09:44 Review of Systems ROS Statement: Those systems with pertinent positive or pertinent negative responses have been documented in the HPI. ROS Other: All systems not noted in ROS Statement are negative. Past Medical History Past Medical History: Cancer, GERD/Reflux, Hypertension, Sleep Apnea/CPAP/BIPAP Additional Past Medical History / Comment(s): dx in december 2019 with Brain CA, currently going through radiation and chemo History of Any Multi-Drug Resistant Organisms: None Reported Past Surgical History: Orthopedic Surgery Additional Past Surgical History / Comment(s): brain biopsy Past Anesthesia/Blood Transfusion Reactions: No Reported Reaction Additional Past Anesthesia/Blood Transfusion Reaction / Comment(s): no hx blood transfusion Smoking Status: Former smoker - Past Family History Father Family Medical History: Myocardial Infarction ([place]) Additional Family Medical History / Comment(s): at age 49-[place] Mother Family Medical History: No Reported History Additional Family Medical History / Comment(s): . General Exam - General Exam Comments Initial Comments: GENERAL: Patient is well-developed and well-nourished. Patient is nontoxic and well- hydrated and is in no acute distress. ENT: Neck is soft and supple. No significant lymphadenopathy is noted. Oropharynx is clear. Moist mucous membranes. Neck has full range of motion without eliciting any pain. EYES: The sclera were anicteric and conjunctiva were pink and moist. Extraocular movements were intact and pupils were equal round and reactive to light. Eyelids were unremarkable. PULMONARY: Unlabored respirations. Good breath sounds bilaterally. No audible rales rhonchi or wheezing was noted. CARDIOVASCULAR: There is a regular rate and rhythm without any murmurs gallops or rubs. ABDOMEN: Soft and nontender with normal bowel sounds. SKIN: Skin is clear with no lesions or rashes and otherwise unremarkable. NEUROLOGIC: Patient is alert and oriented 1. Cranial nerves II through XII are grossly intact. Patient has no focal deficit. MUSCULOSKELETAL: All 4 extremities are weak however they are equally weak. LYMPHATICS: No significant lymphadenopathy is noted PSYCHIATRIC: Normal psychiatric evaluation. Course Vital Signs 12/02/20 12/02/20 12/02/20 08:22 10:07 11:13 Temperature 101.5 F H 100.7 F H Pulse Rate 130 H 96 Respiratory 22 20 Rate Blood Pressure 149/115 128/87 O2 Sat by Pulse 95 97 95 Oximetry Medical Decision Making - Medical Decision Making EKG shows sinus tachycardia at 101 bpm [place] interval 256 QRS is 64 QT interval 316 QTC is 49 per patient's EKG shows no ST segment elevation or depression. CT of the brain shows no acute abnormality. Chest x-ray shows no acute abnormality. Nursing spoke with the and she did not feel so she could take care of the patient home at this time so patient no longer qualified for monoclonal antibodies. Spoke with Dr. La he agreed to admit the patient admitted the patient I wrote admitting orders. - Lab Data Result diagrams: 12/02/20 08:46 12/02/20 08:46 Lab Results 12/02/20 12/02/20 12/02/20 Range/Units 08:46 08:46 08:46 WBC 7.0 (3.8-10.6) k/uL RBC 4.15 L (4.30-5.90) m/uL Hgb 14.2 (13.0-17.5) gm/dL Hct 41.5 (39.0-53.0) % MCV 99.8 (80.0-100.0) fL MCH 34.2 (25.0-35.0) pg MCHC 34.3 (31.0-37.0) g/dL RDW 14.0 (11.5-15.5) % Plt Count 134 L (150-450) k/uL MPV 7.4 Neutrophils % 95 % Lymphocytes % 3 % Monocytes % 2 % Eosinophils % 1 % Basophils % 0 % Neutrophils # 6.6 (1.3-7.7) k/uL Lymphocytes # 0.2 L (1.0-4.8) k/uL Monocytes # 0.1 (0-1.0) k/uL Eosinophils # 0.0 (0-0.7) k/uL Basophils # 0.0 (0-0.2) k/uL PT 9.5 (9.0-12.0) sec INR 0.9 (<1.2) APTT 20.9 L (22.0-30.0) sec Sodium 141 (137-145) mmol/L Potassium 4.0 (3.5-5.1) mmol/L Chloride 110 H (98-107) mmol/L Carbon Dioxide 21 L (22-30) mmol/L Anion Gap 10 mmol/L BUN 19 (9-20) mg/dL Creatinine 0.65 L (0.66-1.25) mg/dL Est GFR (CKD-EPI)AfAm >90 (>60 ml/min/1.73 sqM) Est GFR (CKD-EPI)NonAf >90 (>60 ml/min/1.73 sqM) Glucose 98 (74-99) mg/dL Lactic Ac Sepsis Rflx Plasma Lactic Acid Isaiah (0.7-2.0) mmol/L Calcium 8.8 (8.4-10.2) mg/dL Magnesium 1.9 (1.6-2.3) mg/dL Total Bilirubin 0.7 (0.2-1.3) mg/dL AST 34 (17-59) U/L ALT 35 (4-49) U/L Alkaline Phosphatase 83 (38-126) U/L Troponin I (0.000-0.034) ng/mL Total Protein 5.5 L (6.3-8.2) g/dL Albumin 2.9 L (3.5-5.0) g/dL Urine Color Urine Appearance (Clear) Urine pH (5.0-8.0) Ur Specific [place] (1.001-1.035) Urine Protein (Negative) Urine Glucose (UA) (Negative) Urine Ketones (Negative) Urine Blood (Negative) Urine Nitrite (Negative) Urine Bilirubin (Negative) Urine Urobilinogen (<2.0) mg/dL Ur Leukocyte Esterase (Negative) Urine RBC (0-5) /hpf Urine WBC (0-5) /hpf Urine Mucus (None) /hpf Coronavirus (PCR) (Not Detectd) 12/02/20 12/02/20 12/02/20 Range/Units 08:46 08:46 08:46 WBC (3.8-10.6) k/uL RBC (4.30-5.90) m/uL Hgb (13.0-17.5) gm/dL Hct (39.0-53.0) % MCV (80.0-100.0) fL MCH (25.0-35.0) pg MCHC (31.0-37.0) g/dL RDW (11.5-15.5) % Plt Count (150-450) k/uL MPV Neutrophils % % Lymphocytes % % Monocytes % % Eosinophils % % Basophils % % Neutrophils # (1.3-7.7) k/uL Lymphocytes # (1.0-4.8) k/uL Monocytes # (0-1.0) k/uL Eosinophils # (0-0.7) k/uL Basophils # (0-0.2) k/uL PT (9.0-12.0) sec INR (<1.2) APTT (22.0-30.0) sec Sodium (137-145) mmol/L Potassium (3.5-5.1) mmol/L Chloride (98-107) mmol/L Carbon Dioxide (22-30) mmol/L Anion Gap mmol/L BUN (9-20) mg/dL Creatinine (0.66-1.25) mg/dL Est GFR (CKD-EPI)AfAm (>60 ml/min/1.73 sqM) Est GFR (CKD-EPI)NonAf (>60 ml/min/1.73 sqM) Glucose (74-99) mg/dL Lactic Ac Sepsis Rflx Plasma Lactic Acid Isaiah 3.3 H* (0.7-2.0) mmol/L Calcium (8.4-10.2) mg/dL Magnesium (1.6-2.3) mg/dL Total Bilirubin (0.2-1.3) mg/dL AST (17-59) U/L ALT (4-49) U/L Alkaline Phosphatase (38-126) U/L Troponin I <0.012 (0.000-0.034) ng/mL Total Protein (6.3-8.2) g/dL Albumin (3.5-5.0) g/dL Urine Color Urine Appearance (Clear) Urine pH (5.0-8.0) Ur Specific [place] (1.001-1.035) Urine Protein (Negative) Urine Glucose (UA) (Negative) Urine Ketones (Negative) Urine Blood (Negative) Urine Nitrite (Negative) Urine Bilirubin (Negative) Urine Urobilinogen (<2.0) mg/dL Ur Leukocyte Esterase (Negative) Urine RBC (0-5) /hpf Urine WBC (0-5) /hpf Urine Mucus (None) /hpf Coronavirus (PCR) Detected A (Not Detectd) 12/02/20 12/02/20 Range/Units 09:29 11:13 WBC (3.8-10.6) k/uL RBC (4.30-5.90) m/uL Hgb (13.0-17.5) gm/dL Hct (39.0-53.0) % MCV (80.0-100.0) fL MCH (25.0-35.0) pg MCHC (31.0-37.0) g/dL RDW (11.5-15.5) % Plt Count (150-450) k/uL MPV Neutrophils % % Lymphocytes % % Monocytes % % Eosinophils % % Basophils % % Neutrophils # (1.3-7.7) k/uL Lymphocytes # (1.0-4.8) k/uL Monocytes # (0-1.0) k/uL Eosinophils # (0-0.7) k/uL Basophils # (0-0.2) k/uL PT (9.0-12.0) sec INR (<1.2) APTT (22.0-30.0) sec Sodium (137-145) mmol/L Potassium (3.5-5.1) mmol/L Chloride (98-107) mmol/L Carbon Dioxide (22-30) mmol/L Anion Gap mmol/L BUN (9-20) mg/dL Creatinine (0.66-1.25) mg/dL Est GFR (CKD-EPI)AfAm (>60 ml/min/1.73 sqM) Est GFR (CKD-EPI)NonAf (>60 ml/min/1.73 sqM) Glucose (74-99) mg/dL Lactic Ac Sepsis Rflx Y Plasma Lactic Acid Isaiah (0.7-2.0) mmol/L Calcium (8.4-10.2) mg/dL Magnesium (1.6-2.3) mg/dL Total Bilirubin (0.2-1.3) mg/dL AST (17-59) U/L ALT (4-49) U/L Alkaline Phosphatase (38-126) U/L Troponin I (0.000-0.034) ng/mL Total Protein (6.3-8.2) g/dL Albumin (3.5-5.0) g/dL Urine Color Yellow Urine Appearance Clear (Clear) Urine pH 6.0 (5.0-8.0) Ur Specific [place] 1.020 (1.001-1.035) Urine Protein Negative (Negative) Urine Glucose (UA) Negative (Negative) Urine Ketones Negative (Negative) Urine Blood Moderate H (Negative) Urine Nitrite Negative (Negative) Urine Bilirubin Negative (Negative) Urine Urobilinogen <2.0 (<2.0) mg/dL Ur Leukocyte Esterase Negative (Negative) Urine RBC 74 H (0-5) /hpf Urine WBC 1 (0-5) /hpf Urine Mucus Rare H (None) /hpf Coronavirus (PCR) (Not Detectd) Disposition Clinical Impression: Glioblastoma multiforme of brain, Altered mental status, Pneumonia due to COVID-19 virus Disposition: ADMITTED IP TO THIS HOSP Referrals: Jesusita Maurer MD [Primary Care Provider] - 1-2 days Time of Disposition: 12:36
[2020-12-02 09:04] LABS: Basophils % (A) 0 %; Eosinophils % (A) 1 %; HCT 41.5 % (39.0-53.0); HGB 14.2 gm/dL (13.0-17.5); Lymphocytes # (A) 0.2 k/uL (1.0-4.8); Lymphocytes % (A) 3 %; MCH 34.2 pg (25.0-35.0); MCHC 34.3 g/dL (31.0-37.0); MCV 99.8 fL (80.0-100.0); Mean Platelet Volume 7.4; Monocytes # (A) 0.1 k/uL (0-1.0); Monocytes % (A) 2 %; Neutrophils # (A) 6.6 k/uL (1.3-7.7); Neutrophils % (A) 95 %; Platelet Count 134 k/uL (150-450); RBC 4.15 m/uL (4.30-5.90)
[2020-12-02 09:13] LABS: ALT 35 U/L (4-49); African American GFR (CKD) >90 (>60 ml/min/1.73 sqM); Albumin 2.9 g/dL (3.5-5.0); Anion Gap 10 mmol/L; Blood Urea Nitrogen 19 mg/dL (9-20); Calcium 8.8 mg/dL (8.4-10.2); Carbon Dioxide 21 mmol/L (22-30); Chloride 110 mmol/L (98-107); Glucose 98 mg/dL (74-99); Non-African American GFR(CKD) >90 (>60 ml/min/1.73 sqM); Sodium 141 mmol/L (137-145); Total Bilirubin 0.7 mg/dL (0.2-1.3); Total Protein 5.5 g/dL (6.3-8.2)
[2020-12-02 09:22] LABS: INR 0.9 (<1.2); Prothrombin Time 9.5 sec (9.0-12.0)
--- NOTE | 2020-12-02 09:24 | XR ---
EXAMINATION TYPE: XR chest 1V portable DATE OF EXAM: 12/02/2020 COMPARISON: 12/06/2019 HISTORY: Altered mental TECHNIQUE: Single frontal view of the chest is obtained. FINDINGS: The exam is limited by poor inspiratory effort. The lungs are grossly clear. There is no large pleural effusion. There is no pneumothorax. Heart size is normal for the technique. The pulmonary vasculature is not congested. The osseous structures are intact IMPRESSION: Limited by the portable technique and suboptimal inspiration but grossly no evidence of acute cardiopulmonary disease.
[2020-12-02 09:27] LABS: AST 34 U/L (17-59); Alkaline Phosphatase 83 U/L (38-126); Magnesium 1.9 mg/dL (1.6-2.3)
--- NOTE | 2020-12-02 09:31 | CT ---
EXAMINATION TYPE: CT brain wo con DATE OF EXAM: 12/02/2020 COMPARISON: 09/18/2020 HISTORY: altered mental status CT DLP: 1099.4 mGycm Automated exposure control for dose reduction was used. FINDINGS: The ventricles, basal cisterns and sulci over the convexities are mildly prominent consistent with ge neralized atrophy and consistent with the patient's age. There is diffuse decreased density in the white matter of both cerebral hemispheres consistent with c hronic ischemic white matter demyelination. There are remote cortical and subcortical white matter infarcts involving the left frontal lobe, righ t parietal occipital region, and left temporal parietal region. There is no acute intra or extra-axial hemorrhage. There is no mass effect or shift of the midline structures. The posterior fossa is grossly normal. The intraorbital contents appear normal and symmetric. There are fluid levels in the maxillary sinuse s bilaterally likely indicating acute sinusitis. . There are also inflammatory changes in the ethmoid air cells and sphenoid sinus. The mastoid air cells are well aerated IMPRESSION: 1. MULTIPLE REMOTE INFARCTS INVOLVING THE CORTEX AND SUBCORTICAL WHITE MATTER IN BOTH CEREBRAL HEMISP HERES DESCRIBED ABOVE. 2. CHRONIC DIFFUSE WHITE MATTER ISCHEMIA. 3. NO EVIDENCE OF ACUTE BLEED OR MASS EFFECT. 4. ACUTE INFLAMMATORY CHANGES IN THE PARANASAL SINUSES.
[2020-12-02 09:39] LABS: Partial Thromboplastin Time 20.9 sec (22.0-30.0)
[2020-12-02 11:30] LABS: Appearance,Urine Clear (Clear); Bilirubin,Urine Negative (Negative); Blood,Urine Moderate (Negative); Color,Urine Yellow; Glucose,Urine (UA) Negative (Negative); Ketones,Urine Negative (Negative); Leukocyte Esterase,Urine Negative (Negative); Mucus,Urine Rare /hpf; Nitrite,Urine Negative (Negative); Protein,Urine Negative (Negative); RBC,Urine 74 /hpf (0-5); Urobilinogen,Urine <2.0 mg/dL (<2.0); WBC,Urine 1 /hpf (0-5)
[2020-12-02] MEDS ORDERED: SODIUM CHLORIDE 0.9% 1,000 ML IV ONE (12:39)
[2020-12-02] MEDS ORDERED: BAMLANIVIMAB (EUA) 700 MG, ETESEVIMAB (EUA) 1,400 MG in SODIUM CHLORIDE 0.9% 50 ML IVPB ONE (13:30)
[2020-12-02] MEDS ORDERED: DOCUSATE 100 MG CAP PO PRN (16:21)
[2020-12-02] MEDS ORDERED: Acetaminophen-Codeine 300-30mg TAB PO PRN (16:21)
[2020-12-02] MEDS ORDERED: CYCLOBENZAPRINE 10 MG TAB PO PRN (16:21)
--- NOTE | 2020-12-02 16:31 | P.HPIM ---
History of Present Illness Patient is historian and unable to provide much of the history. Patient was brought in by the family members because his getting progressively weak. Patient is clinically doing well and should be able to go home but the family is unable to pick him up today. Patient is found to have covid 19. Patient will be transfused with monoclonal antibody infusion. Patient does have history of Glioblastoma with metastasis. Patient is on prophylactic Decadron and Bactrim. Patient Covid symptoms has been going on for about a week patient was recently discharged from [facility]. Review of Systems REVIEW OF SYSTEMS: CONSTITUTIONAL: No fever, no malaise, no fatigue. HEENT: No recent visual problems or hearing problems. Denied any sore throat. CARDIOVASCULAR: No chest pain, orthopnea, PND, no palpitations, no syncope. PULMONARY: No shortness of breath, no cough, no hemoptysis. GASTROINTESTINAL: No diarrhea, no nausea, no vomiting, no abdominal pain. NEUROLOGICAL: No headaches, no weakness, no numbness. HEMATOLOGICAL: Denies any bleeding or petechiae. GENITOURINARY: Denies any burning micturition, frequency, or urgency. MUSCULOSKELETAL/RHEUMATOLOGICAL: Denies any joint pain, swelling, or any muscle pain. ENDOCRINE: Denies any polyuria or polydipsia. The rest of the 14-point review of systems is negative. Past Medical History Past Medical History: Cancer, GERD/Reflux, Hypertension, Sleep Apnea/CPAP/BIPAP Additional Past Medical History / Comment(s): dx in december 2019 with Brain CA, currently going through radiation and chemo History of Any Multi-Drug Resistant Organisms: None Reported Past Surgical History: Orthopedic Surgery Additional Past Surgical History / Comment(s): brain biopsy Past Anesthesia/Blood Transfusion Reactions: No Reported Reaction Additional Past Anesthesia/Blood Transfusion Reaction / Comment(s): no hx blood transfusion Smoking Status: Former smoker - Past Family History Father Family Medical History: Myocardial Infarction ([place]) Additional Family Medical History / Comment(s): at age 49-[place] Mother Family Medical History: No Reported History Additional Family Medical History / Comment(s): . Medications and Allergies Home Medications Medication Instructions Recorded Confirmed Type Metoprolol Succinate (ER) [Toprol 50 mg PO DAILY 10/17/15 12/02/20 History XL] Simvastatin 40 mg PO W/SUPPER 10/17/15 12/02/20 History amLODIPine [Norvasc] 5 mg PO DAILY 12/06/19 12/02/20 History Docusate [Colace] 100 - 200 mg PO DAILY PRN 04/06/20 12/02/20 History Omeprazole [PriLOSEC] 20 mg PO DAILY 04/06/20 12/02/20 History levETIRAcetam [Keppra] 1,000 mg PO BID-W/MEALS 04/06/20 12/02/20 History Dexamethasone 0.5 mg PO DAILY 09/18/20 12/02/20 History Sulfamethox-Tmp 800-160Mg [Bactrim 1 tab PO MOWEFR 09/18/20 12/02/20 History DS 800-160 mg] dexAMETHasone [Dexamethasone] 3 mg PO DAILY 09/18/20 12/02/20 History Acetaminophen with Codeine 1 tab PO Q8H PRN 12/02/20 12/02/20 History [Tylenol w/Codeine #4 Tablet] Apixaban [Eliquis] 5 mg PO BID 12/02/20 12/02/20 History Cyanocobalamin (Vitamin B-12) 1,000 mcg PO DAILY 12/02/20 12/02/20 History [Vitamin B-12] Cyclobenzaprine [Flexeril] 10 mg PO Q8H PRN 12/02/20 12/02/20 History Allergies Allergy/AdvReac Type Severity Reaction Status Date / Time No Known Allergies Allergy Verified 12/02/20 09:44 Physical Exam Vitals: Vital Signs Temp Pulse Resp BP Pulse Ox 12/02/20 14:01 76 18 122/86 93 L 12/02/20 13:06 98.9 F 75 18 117/84 94 L 12/02/20 11:13 95 12/02/20 10:07 100.7 F H 96 20 128/87 97 12/02/20 08:22 101.5 F H 130 H 22 149/115 95 Intake and Output 12/02/20 12/02/20 12/02/20 06:59 14:59 22:59 Other: Weight 95.708 kg PHYSICAL EXAMINATION: GENERAL: The patient is alert and oriented x3, not in any acute distress. Well developed, well nourished. HEENT: Pupils are round and equally reacting to light. EOMI. No scleral icterus. No conjunctival pallor. Normocephalic, atraumatic. No pharyngeal erythema. No thyromegaly. CARDIOVASCULAR: S1 and S2 present. No murmurs, rubs, or gallops. PULMONARY: Chest is clear to auscultation, no wheezing or crackles. ABDOMEN: Soft, nontender, nondistended, normoactive bowel sounds. No palpable organomegaly. MUSCULOSKELETAL: No joint swelling or deformity. EXTREMITIES: No cyanosis, clubbing, or pedal edema. NEUROLOGICAL: Gross neurological examination did not reveal any focal deficits. SKIN: No rashes. Results CBC & Chem 7: 12/02/20 08:46 12/02/20 08:46 Labs: Abnormal Lab Results - Last 24 Hours (Table) 12/02/20 12/02/20 12/02/20 Range/Units 08:46 08:46 08:46 RBC 4.15 L (4.30-5.90) m/uL Plt Count 134 L (150-450) k/uL Lymphocytes # 0.2 L (1.0-4.8) k/uL APTT 20.9 L (22.0-30.0) sec Chloride 110 H (98-107) mmol/L Carbon Dioxide 21 L (22-30) mmol/L Creatinine 0.65 L (0.66-1.25) mg/dL Plasma Lactic Acid Isaiah (0.7-2.0) mmol/L Total Protein 5.5 L (6.3-8.2) g/dL Albumin 2.9 L (3.5-5.0) g/dL Urine Blood (Negative) Urine RBC (0-5) /hpf Urine Mucus (None) /hpf Coronavirus (PCR) (Not Detectd) 12/02/20 12/02/20 12/02/20 Range/Units 08:46 08:46 11:13 RBC (4.30-5.90) m/uL Plt Count (150-450) k/uL Lymphocytes # (1.0-4.8) k/uL APTT (22.0-30.0) sec Chloride (98-107) mmol/L Carbon Dioxide (22-30) mmol/L Creatinine (0.66-1.25) mg/dL Plasma Lactic Acid Isaiah 3.3 H* (0.7-2.0) mmol/L Total Protein (6.3-8.2) g/dL Albumin (3.5-5.0) g/dL Urine Blood Moderate H (Negative) Urine RBC 74 H (0-5) /hpf Urine Mucus Rare H (None) /hpf Coronavirus (PCR) Detected A (Not Detectd) Assessment and Plan Plan: Covid 19 infection: Patient doesn't have any significant infiltrate on the chest x-ray, patient will be started on multivitamins for Covid. Patient is already on Decadron as prophylaxis for mass lesions in the brain. -Glioblastoma multiforme a: Patient is a CT of the head here which showed remote infarct involving cortex and subcortical white matter, chronic diffuse white matter ischemic changes. Patient is on prophylactic Decadron, Keppra, Bactrim. -Gastroesophageal reflux disease -Hypertension -Sleep apnea -Patient is on anticoagulation for bilateral pulmonary embolism.
[2020-12-02] MEDS: ZINC SULFATE 220 MG CAP PO SCH (17:15)
[2020-12-02] MEDS: levETIRAcetam 500 MG TAB PO SCH (17:15)
[2020-12-02] MEDS: ATORVASTATIN 20 MG TAB PO SCH (17:16)
[2020-12-02] MEDS ORDERED: METOPROLOL SUCCINATE (ER) 50 MG TAB.ER.24H PO STA (23:49)
[2020-12-03] MEDS: ATORVASTATIN 20 MG TAB PO SCH (00:25)
[2020-12-03] MEDS: APIXABAN 5 MG TAB PO SCH ×3 (00:25→21:36)
[2020-12-03] MEDS: ASCORBIC ACID 500 MG TAB PO SCH ×3 (00:25→21:36)
[2020-12-03] MEDS: ACETAMINOPHEN TAB 325 MG TAB PO PRN ×2 (00:28→05:44)
[2020-12-03] MEDS: FAMOTIDINE 20 MG TAB PO SCH ×3 (02:34→21:35)
[2020-12-03] MEDS: ZINC SULFATE 220 MG CAP PO SCH (08:58)
[2020-12-03] MEDS: CYANOCOBALAMIN 500 MCG TAB PO SCH (08:58)
[2020-12-03] MEDS: METOPROLOL SUCCINATE (ER) 50 MG TAB.ER.24H PO SCH (08:58)
[2020-12-03] MEDS: PANTOPRAZOLE 40 MG TABLET PO SCH (08:58)
[2020-12-03] MEDS ORDERED: amLODIPine 5 MG TAB PO SCH (09:00)
[2020-12-03] MEDS ORDERED: dexAMETHasone 2 MG TAB PO SCH (09:00)
[2020-12-03] MEDS: levETIRAcetam 500 MG TAB PO SCH ×2 (09:04→17:20)
--- NOTE | 2020-12-03 16:43 | P.PN ---
Subjective Patient is historian and unable to provide much of the history. Patient was brought in by the family members because his getting progressively weak. Patient is clinically doing well and should be able to go home but the family is unable to pick him up today. Patient is found to have covid 19. Patient will be transfused with monoclonal antibody infusion. Patient does have history of Glioblastoma with metastasis. Patient is on prophylactic Decadron and Bactrim. Patient Covid symptoms has been going on for about a week patient was recently discharged from [facility]. 12/03/2020 Patient is desaturating without oxygen patient is pleasant in [place] of oxygen unable to provide much of history to me. Review of systems: Unable to obtain due to his clinical condition All inpatient medications were reviewed and appropriate changes in these medications as dictated in the interval history and assessment and plan. Objective - Vital Signs Vital signs: Vital Signs Temp 98.3 F 12/03/20 14:00 Pulse 84 12/03/20 14:00 Resp 17 12/03/20 14:00 BP 112/80 12/03/20 14:00 Pulse Ox 94 L 12/03/20 14:00 Intake & Output 12/02/20 12/03/20 12/03/20 18:59 06:59 18:59 Weight 95.708 kg Other: Voiding Method Diaper # Voids 1 1 # Bowel Movements 0 1 - Exam PHYSICAL EXAMINATION: GENERAL: The patient is alert and oriented x3, not in any acute distress. Well developed, well nourished. HEENT: Pupils are round and equally reacting to light. EOMI. No scleral icterus. No conjunctival pallor. Normocephalic, atraumatic. No pharyngeal erythema. No thyromegaly. CARDIOVASCULAR: S1 and S2 present. No murmurs, rubs, or gallops. PULMONARY: Chest is clear to auscultation, no wheezing or crackles. ABDOMEN: Soft, nontender, nondistended, normoactive bowel sounds. No palpable organomegaly. MUSCULOSKELETAL: No joint swelling or deformity. EXTREMITIES: No cyanosis, clubbing, or pedal edema. NEUROLOGICAL: Gross neurological examination did not reveal any focal deficits. SKIN: No rashes. - Labs CBC & Chem 7: 12/02/20 08:46 12/02/20 08:46 Labs: Microbiology - Last 24 Hours (Table) 12/02/20 10:29 Blood Culture - Preliminary Blood No Growth after 24 hours 12/02/20 10:29 Blood Culture - Preliminary Blood No Growth after 24 hours Assessment and Plan Plan: Covid 19 infection, acute hypoxic respiratory failure secondary to Covid 19: Patient will be started on 6 mg of Decadron patient is presently on 4.5 mg, infectious disease will be consulted. Patient is on multivitamins for covid -Glioblastoma multiforme a: Patient is a CT of the head here which showed remote infarct involving cortex and subcortical white matter, chronic diffuse white matter ischemic changes. Patient is on prophylactic Decadron, Keppra, Bactrim. -Gastroesophageal reflux disease -Hypertension -Sleep apnea -Patient is on anticoagulation for bilateral pulmonary embolism.
[2020-12-03 18:03] LABS: C Reactive Protein 377.1 mg/L (<10.0)
--- NOTE | 2020-12-03 18:54 | XR ---
EXAMINATION TYPE: XR chest 1V portable DATE OF EXAM: 12/03/2020 COMPARISON: Yesterday HISTORY: Pneumonia TECHNIQUE: FINDINGS: There is coarse interstitial infiltrates in the lungs. There is elevated right diaphragm. T here is no heart failure. Heart size is normal. IMPRESSION: Interstitial infiltrates and atelectasis in both lung wharton appears the same or slightly worse than yesterday. No obvious heart failure.
[2020-12-03] MEDS ORDERED: REMDESIVIR 200 MG in SODIUM CHLORIDE 0.9% 250 ML IVPB ONE (23:30)
[2020-12-03 23:45] LABS: Ferritin 1589.3 ng/mL (22.0-322.0)
[2020-12-04] MEDS: ZINC SULFATE 220 MG CAP PO SCH (08:23)
[2020-12-04] MEDS: CYANOCOBALAMIN 500 MCG TAB PO SCH (08:23)
[2020-12-04] MEDS: dexAMETHasone 2 MG TAB PO SCH (08:23)
[2020-12-04] MEDS: FAMOTIDINE 20 MG TAB PO SCH ×2 (08:23→22:00)
[2020-12-04] MEDS: PANTOPRAZOLE 40 MG TABLET PO SCH (08:23)
[2020-12-04] MEDS: ASCORBIC ACID 500 MG TAB PO SCH ×2 (08:23→22:00)
[2020-12-04] MEDS: METOPROLOL SUCCINATE (ER) 50 MG TAB.ER.24H PO SCH (08:23)
[2020-12-04] MEDS: SULFAMETHOX-TMP 800-160MG 1 EACH TAB PO SCH (08:24)
[2020-12-04] MEDS: levETIRAcetam 500 MG TAB PO SCH ×2 (08:24→16:58)
[2020-12-04] MEDS: APIXABAN 5 MG TAB PO SCH ×2 (08:25→22:00)
[2020-12-04 08:56] LABS: HCT 38.7 % (39.6-50.0); HGB 12.3 g/dL (13.0-17.0); MCH 33.6 pg (27.0-32.0); MCHC 31.8 g/dL (32.0-37.0); MCV 105.7 fL (80.0-97.0); Mean Platelet Volume 10.8 fL (9.5-12.2); Platelet Count 109 X 10*3/uL (140-440); RBC 3.66 X 10*6/uL (4.40-5.60); RDW 13.2 % (11.5-14.5); WBC 9.02 X 10*3/uL (4.50-10.00)
[2020-12-04 09:11] LABS: African American GFR (CKD) 118.9 (60.0-200.0); Anion Gap 6.5 mmol/L (4.00-12.00); BUN/Creat Ratio 34.29 Ratio (12.00-20.00); Calcium 8.5 mg/dL (8.7-10.3); Carbon Dioxide 23.5 mmol/L (21.6-31.8); Non-African American GFR(CKD) 102.6 (60.0-200.0); Potassium 4.9 mmol/L (3.5-5.5)
--- NOTE | 2020-12-04 10:19 | CONS ---
CONSULTATION DATE OF SERVICE: 12/03/2020 REASON FOR CONSULTATION: COVID-19 pneumonia. HISTORY OF PRESENT ILLNESS: The patient is a 60-year-old male with a past medical history of stage IV metastatic brain tumor in this patient last chemo was at the end of October. The patient has been sent to the ER for evaluation of weakness which has been going on for the last 3-4 days. The patient also noticed to have some mental status changes. The patient was noticed to be febrile by EMS and tachycardic on the way to the hospital. There is no clear history of nausea, vomiting, or any diarrhea. On presentation to the hospital, the patient did have fever of 101.5 degrees Fahrenheit. The patient did spike a fever again this morning of 101, currently afebrile. The patient has been hypoxic at one point 89% on room air. Currently, 93% on 4 L nasal cannula. The patient did have a normal white count within lymphopenia. Did have elevated D-dimer. Lactic acid was elevated. Creatinine was normal. Liver enzymes are normal. LDH of 918, CRP of 377. Urine is negative. Diaz PCR was positive. The patient did have a chest x-ray, no evidence of acute cardiopulmonary disease. The chest x-ray repeated this evening by myself interstitial infiltrate atelectasis in both lung wharton which appears worse than yesterday, no obvious heart failure. The patient was offered monoclonal antibody infusion yesterday; however, the mentioned she was unable to take care of him and could not take him home and the patient has been admitted to the hospital. Infectious Disease was consulted for further management. At the time of my evaluation, the patient was awake, alert. He knows that he is in [facility]. . The patient denies having any nausea, no vomiting. No chest pain. Shortness of breath. Occasional cough. No abdominal pain and no diarrhea. REVIEW OF SYSTEMS: Positive points have been mentioned in HPI. Rest of systems are negative. PAST MEDICAL HISTORY: Metastatic brain cancer, currently going through radiation and chemo, gastroesophageal reflux disease, hypertension, sleep apnea. PAST SURGICAL HISTORY: Brain biopsy. No other major surgery. SOCIAL HISTORY: Remote history of smoking. No drinking or drug use. FAMILY HISTORY: Father history of DC, at age of 49. ALLERGIES: No known drug allergies. MEDICATIONS: Medications include the patient is currently on Tylenol, Eliquis, vitamin C, Lipitor, vitamin B12, Flexeril, dexamethasone, Colace, Pepcid, Keppra, Toprol-XL, Protonix, Bactrim DS and zinc sulfate. PHYSICAL EXAMINATION: Blood pressure is 111/77, pulse of 74, temperature 98.5, T-max is 101. He is 93% on 4 L nasal cannula. General description is a middle-aged male lying in bed in no distress. No tachypnea or accessory muscles of respiration use. HEENT: Examination shows no pallor or scleral icterus. Oral mucous membrane is dry. NECK: Trachea central. No thyromegaly. LUNGS: Unlabored breathing, decreased intensity of breath sounds. No wheeze. HEART: S1, S2. Regular rate and rhythm. ABDOMEN: Soft, no tenderness. No guarding. No rigidity. EXTREMITIES: No edema of feet. SKIN EXAMINATION: No rash or mass palpable. NEUROLOGICAL: Patient is awake, alert, oriented x2. Mood and affect normal. LABS: Hemoglobin 14.2, white count 7.0, BUN of 19, creatinine 0.65. Lactic acid was 3.3, repeat is 1.1. Liver enzymes are normal. LDH is 918. CRP is 377. Urine is negative. DIAGNOSTIC IMPRESSION: Patient admitted to the hospital with mental status changes, fever, in this patient who did have evidence of acute COVID-19 pneumonia. The patient's symptom onset has been now 3-4 days within a week. The patient has been treated with dexamethasone, Decadron, Eliquis; however, within the last 24 hours, the patient remains to be afebrile and the x-ray repeated this evening shows worsening and high risk for the progression of his illness and respiratory failure in this patient who does have underlying metastatic brain cancer and is currently on chemoradiation. PLAN: 1. The patient will be started on Remdesivir per protocol 200 mg x1 followed by 100 mg. 2. Continue with Eliquis, dexamethasone, zinc and ascorbic acid. 3. Droplet isolation and respiratory support. 4. We will follow on his clinical condition and investigations to further adjust medication if needed. Thank you for this consultation. Will follow this patient along with you. MMODL / IJN: [id number] /
--- NOTE | 2020-12-04 13:48 | P.PN ---
Subjective Patient is historian and unable to provide much of the history. Patient was brought in by the family members because his getting progressively weak. Patient is clinically doing well and should be able to go home but the family is unable to pick him up today. Patient is found to have covid 19. Patient will be transfused with monoclonal antibody infusion. Patient does have history of Glioblastoma with metastasis. Patient is on prophylactic Decadron and Bactrim. Patient Covid symptoms has been going on for about a week patient was recently discharged from [facility]. 12/03/2020 Patient is desaturating without oxygen patient is pleasant in [place] of oxygen unable to provide much of history to me. 12/04/2020 patient remains on oxygen at 4 L patient has bilateral lower extremity is cold and clammy significant on the right side obtain an arterial Doppler patient does have pulses in both extremities with the Doppler. Constitutional: Denied any fatigue denied any fever. Cardio vascular: denied any chest pain, palpitations Gastrointestinal denied any nausea vomiting Pulmonary: Denied any shortness of breath cough Neurologic denied any new focal deficits All inpatient medications were reviewed and appropriate changes in these medications as dictated in the interval history and assessment and plan. Objective - Vital Signs Vital signs: Vital Signs Temp 99.8 F H 12/04/20 10:00 Pulse 108 H 12/04/20 10:00 Resp 16 12/04/20 10:00 BP 115/82 12/04/20 10:00 Pulse Ox 90 L 12/04/20 10:00 Intake & Output 12/03/20 12/04/20 12/04/20 18:59 06:59 18:59 Other: Voiding Method Diaper # Voids 1 # Bowel Movements 1 1 - Exam PHYSICAL EXAMINATION: GENERAL: The patient is alert and oriented x3, not in any acute distress. Well developed, well nourished. HEENT: Pupils are round and equally reacting to light. EOMI. No scleral icterus. No conjunctival pallor. Normocephalic, atraumatic. No pharyngeal erythema. No thyromegaly. CARDIOVASCULAR: S1 and S2 present. No murmurs, rubs, or gallops. PULMONARY: Chest is clear to auscultation, no wheezing or crackles. ABDOMEN: Soft, nontender, nondistended, normoactive bowel sounds. No palpable organomegaly. MUSCULOSKELETAL: No joint swelling or deformity. EXTREMITIES: No cyanosis, clubbing, or pedal edema. Cold and clammy right extr emity patient doesn't have any loss of hair in the right lower extremity NEUROLOGICAL: Gross neurological examination did not reveal any focal deficits. SKIN: No rashes. - Labs CBC & Chem 7: 12/04/20 05:57 12/04/20 05:57 Labs: Abnormal Lab Results - Last 24 Hours (Table) 12/03/20 12/03/20 12/03/20 Range/Units 16:46 16:46 16:46 RBC (4.40-5.60) X 10*6/uL Hgb (13.0-17.0) g/dL Hct (39.6-50.0) % MCV (80.0-97.0) fL MCH (27.0-32.0) pg MCHC (32.0-37.0) g/dL Plt Count (140-440) X 10*3/uL Absolute Nucleated RBC (0.00-0.00) X 10*3/uL NRBC/100 WBC Diff (0.0-0.0) /100 WBCS D-Dimer 1.58 H (<0.60) mg/L FEU Chloride (96-109) mmol/L BUN/Creatinine Ratio (12.00-20.00) Ratio Calcium (8.7-10.3) mg/dL Ferritin 1589.3 H (22.0-322.0) ng/mL Lactate Dehydrogenase 918 H (313-618) U/L C-Reactive Protein 377.1 H (<10.0) mg/L Procalcitonin 19.78 H (0.02-0.09) ng/mL 12/04/20 12/04/20 Range/Units 05:57 05:57 RBC 3.66 L (4.40-5.60) X 10*6/uL Hgb 12.3 L (13.0-17.0) g/dL Hct 38.7 L (39.6-50.0) % MCV 105.7 H (80.0-97.0) fL MCH 33.6 H (27.0-32.0) pg MCHC 31.8 L (32.0-37.0) g/dL Plt Count 109 L (140-440) X 10*3/uL Absolute Nucleated RBC 0.02 H (0.00-0.00) X 10*3/uL NRBC/100 WBC Diff 0.2 H (0.0-0.0) /100 WBCS D-Dimer (<0.60) mg/L FEU Chloride 110 H (96-109) mmol/L BUN/Creatinine Ratio 34.29 H (12.00-20.00) Ratio Calcium 8.5 L (8.7-10.3) mg/dL Ferritin (22.0-322.0) ng/mL Lactate Dehydrogenase (313-618) U/L C-Reactive Protein (<10.0) mg/L Procalcitonin (0.02-0.09) ng/mL Microbiology - Last 24 Hours (Table) 12/02/20 10:29 Blood Culture - Preliminary Blood No Growth after 48 hours 12/02/20 10:29 Blood Culture - Preliminary Blood No Growth after 48 hours Assessment and Plan Plan: Covid 19 infection, acute hypoxic respiratory failure secondary to Covid 19: Patient will be started on 6 mg of Decadron patient is presently on 4.5 mg, infectious disease will be consulted. Patient is on multivitamins for covid -Glioblastoma multiforme a: Patient is a CT of the head here which showed remote infarct involving cortex and subcortical white matter, chronic diffuse white matter ischemic changes. Patient is on prophylactic Decadron, Keppra, Bactrim. -Gastroesophageal reflux disease -Possible severe peripheral vascular disease for which patient, will obtain arterial Doppler of the right lower extremity. -Hypertension -Sleep apnea -Patient is on anticoagulation for bilateral pulmonary embolism.
[2020-12-04] MEDS: ATORVASTATIN 20 MG TAB PO SCH (16:58)
[2020-12-04] MEDS: REMDESIVIR 100 MG in SODIUM CHLORIDE 0.9% 250 ML IVPB SCH (22:00)
--- NOTE | 2020-12-05 00:18 | PN ---
PROGRESS NOTE DATE OF SERVICE: 12/04/2020. REASON FOR FOLLOWUP: COVID-19 infection. INTERVAL HISTORY: Patient is currently afebrile. The patient is more awake, alert. The patient denies having any chest pain, shortness of breath or cough. No nausea, vomiting. No abdominal pain or diarrhea. PHYSICAL EXAMINATION: Blood pressure 119/80 with a pulse of 79, temperature is 98.2. He is 93% on 4 L nasal cannula. General description is a middle-aged male up in the chair in no distress. Respiratory system: Unlabored breathing, decreased intensity of breath sounds. No wheeze. HEART: S1, S2. Regular rate and rhythm. ABDOMEN: Soft. No tenderness. LABS: Hemoglobin is 12.1, white count 9.0. BUN of 24, creatinine 0.7. DIAGNOSTIC IMPRESSION AND PLAN: Patient with acute COVID-19 infection. The patient did have minimal clinical improvement. His fever has resolved. The patient to continue with Remdesivir, Eliquis, zinc, ascorbic acid, and to slowly wean off his oxygen. Continue supportive care. MMODL / IJN: [id number] /
[2020-12-05] MEDS: CYANOCOBALAMIN 500 MCG TAB PO SCH (08:10)
[2020-12-05] MEDS: FAMOTIDINE 20 MG TAB PO SCH ×2 (08:10→21:45)
[2020-12-05] MEDS: METOPROLOL SUCCINATE (ER) 50 MG TAB.ER.24H PO SCH (08:11)
[2020-12-05] MEDS: ASCORBIC ACID 500 MG TAB PO SCH ×2 (08:11→21:46)
[2020-12-05] MEDS: dexAMETHasone 2 MG TAB PO SCH (08:11)
[2020-12-05] MEDS: levETIRAcetam 500 MG TAB PO SCH ×2 (08:11→16:44)
[2020-12-05] MEDS: APIXABAN 5 MG TAB PO SCH ×2 (08:11→21:46)
[2020-12-05] MEDS: ZINC SULFATE 220 MG CAP PO SCH (08:11)
[2020-12-05] MEDS: PANTOPRAZOLE 40 MG TABLET PO SCH (08:11)
[2020-12-05 09:54] LABS: HCT 37.8 % (39.6-50.0); HGB 12.5 g/dL (13.0-17.0); MCH 34.1 pg (27.0-32.0); MCHC 33.1 g/dL (32.0-37.0); Mean Platelet Volume 11.4 fL (9.5-12.2); Platelet Count 110 X 10*3/uL (140-440); RBC 3.67 X 10*6/uL (4.40-5.60); WBC 6.59 X 10*3/uL (4.50-10.00)
[2020-12-05 10:43] LABS: African American GFR (CKD) 118.9 (60.0-200.0); Anion Gap 9.1 mmol/L (4.00-12.00); BUN/Creat Ratio 35.71 Ratio (12.00-20.00); Calcium 8.6 mg/dL (8.7-10.3); Carbon Dioxide 22.9 mmol/L (21.6-31.8); Non-African American GFR(CKD) 102.6 (60.0-200.0); Potassium 5.3 mmol/L (3.5-5.5)
--- NOTE | 2020-12-05 15:18 | P.PN ---
Subjective Patient is historian and unable to provide much of the history. Patient was brought in by the family members because his getting progressively weak. Patient is clinically doing well and should be able to go home but the family is unable to pick him up today. Patient is found to have covid 19. Patient will be transfused with monoclonal antibody infusion. Patient does have history of Glioblastoma with metastasis. Patient is on prophylactic Decadron and Bactrim. Patient Covid symptoms has been going on for about a week patient was recently discharged from [facility]. 12/03/2020 Patient is desaturating without oxygen patient is pleasant in [place] of oxygen unable to provide much of history to me. 12/04/2020 patient remains on oxygen at 4 L patient has bilateral lower extremity is cold and clammy significant on the right side obtain an arterial Doppler patient does have pulses in both extremities with the Doppler. 12/05/2020 Patient remains on for discharge and clinically doing well but the has bilateral cold clammy limbs last for surgery is being consulted, or chill Doppler is still pending patient has still 2 more doses of Remdesivir. Constitutional: Denied any fatigue denied any fever. Cardio vascular: denied any chest pain, palpitations Gastrointestinal denied any nausea vomiting Pulmonary: Denied any shortness of breath cough Neurologic denied any new focal deficits All inpatient medications were reviewed and appropriate changes in these medications as dictated in the interval history and assessment and plan. Objective - Vital Signs Vital signs: Vital Signs Temp 97.9 F 12/05/20 14:00 Pulse 94 12/05/20 14:00 Resp 18 12/05/20 14:00 BP 132/84 12/05/20 14:00 Pulse Ox 94 L 12/05/20 14:00 Intake & Output 12/04/20 12/05/20 12/05/20 18:59 06:59 18:59 Intake Total 100 Balance 100 Intake: Oral 100 Other: Voiding Method Diaper # Voids 4 1 # Bowel Movements 1 - Exam PHYSICAL EXAMINATION: GENERAL: The patient is alert and oriented x3, not in any acute distress. Well developed, well nourished. HEENT: Pupils are round and equally reacting to light. EOMI. No scleral icterus. No conjunctival pallor. Normocephalic, atraumatic. No pharyngeal erythema. No thyromegaly. CARDIOVASCULAR: S1 and S2 present. No murmurs, rubs, or gallops. PULMONARY: Chest is clear to auscultation, no wheezing or crackles. ABDOMEN: Soft, nontender, nondistended, normoactive bowel sounds. No palpable organomegaly. MUSCULOSKELETAL: No joint swelling or deformity. EXTREMITIES: No cyanosis, clubbing, or pedal edema. Cold and clammy right extremity patient doesn't have any loss of hair in the right lower extremity NEUROLOGICAL: Gross neurological examination did not reveal any focal deficits. SKIN: No rashes. - Labs CBC & Chem 7: 12/05/20 06:14 12/05/20 06:14 Labs: Abnormal Lab Results - Last 24 Hours (Table) 12/05/20 12/05/20 Range/Units 06:14 06:14 RBC 3.67 L (4.40-5.60) X 10*6/uL Hgb 12.5 L (13.0-17.0) g/dL Hct 37.8 L (39.6-50.0) % MCV 103.0 H (80.0-97.0) fL MCH 34.1 H (27.0-32.0) pg Plt Count 110 L (140-440) X 10*3/uL BUN/Creatinine Ratio 35.71 H (12.00-20.00) Ratio Calcium 8.6 L (8.7-10.3) mg/dL Microbiology - Last 24 Hours (Table) 12/02/20 10:29 Blood Culture - Preliminary Blood No Growth after 72 hours 12/02/20 10:29 Blood Culture - Preliminary Blood No Growth after 72 hours Assessment and Plan Plan: Covid 19 infection, acute hypoxic respiratory failure secondary to Covid 19: Patient will be started on 6 mg of Decadron patient is presently on 4.5 mg, infectious disease will be consulted. Patient is on multivitamins for covid -Glioblastoma multiforme a: Patient is a CT of the head here which showed remote infarct involving cortex and subcortical white matter, chronic diffuse white matter ischemic changes. Patient is on prophylactic Decadron, Keppra, Bactrim. -Gastroesophageal reflux disease -Possible severe peripheral vascular disease for which patient, pending arterial Doppler of the right lower extremity. As per surgery was consulted -Hypertension -Sleep apnea -Patient is on anticoagulation for bilateral pulmonary embolism.
[2020-12-05] MEDS: ATORVASTATIN 20 MG TAB PO SCH (16:43)
--- NOTE | 2020-12-05 17:02 | P.GSCN ---
History of Present Illness History of present illness: 60-year-old gentleman patient came with the diagnosis of cord 19 patient had a monoclonal antibodies and Decadron and also patient is on 4 L oxygen I was consulted for bilateral leg swelling. Patient was seen in the room is laying comfortably in bed Neck examination neck is supple no bruit appreciated Chest patient has a bilateral crackles pulses second sound normal Abdomen soft nontender vascular examination brachial radial pulses are present femorals are palpable dorsal pedis is palpable patient has some mild swelling of the both lower extremity no evidence of venous stasis ulcer no history of no history of claudication rest pain Plan is patient has normal arterial study there is a concern about 2 DVT patient didn't had a ultrasound of the venous and the past admission we will do the venous ultrasound to rule out DVT follow with you thank you Past Medical History Past Medical History: Cancer, GERD/Reflux, Hypertension, Sleep Apnea/CPAP/BIPAP Additional Past Medical History / Comment(s): dx in december 2019 with Brain CA, currently going through radiation and chemo History of Any Multi-Drug Resistant Organisms: None Reported Past Surgical History: Orthopedic Surgery Additional Past Surgical History / Comment(s): brain biopsy Past Anesthesia/Blood Transfusion Reactions: No Reported Reaction Additional Past Anesthesia/Blood Transfusion Reaction / Comm: no hx blood transfusion Past Psychological History: No Psychological Hx Reported Smoking Status: Former smoker Past Alcohol Use History: None Reported Past Drug Use History: None Reported - Past Family History Father Family Medical History: Myocardial Infarction (OK) Additional Family Medical History / Comment(s): at age 49-OK Mother Family Medical History: No Reported History Additional Family Medical History / Comment(s): . Medications and Allergies Home Medications Medication Instructions Recorded Confirmed Type Metoprolol Succinate (ER) [Toprol 50 mg PO DAILY 10/17/15 12/02/20 History XL] Simvastatin 40 mg PO W/SUPPER 10/17/15 12/02/20 History amLODIPine [Norvasc] 5 mg PO DAILY 12/06/19 12/02/20 History Docusate [Colace] 100 - 200 mg PO DAILY PRN 04/06/20 12/02/20 History Omeprazole [PriLOSEC] 20 mg PO DAILY 04/06/20 12/02/20 History levETIRAcetam [Keppra] 1,000 mg PO BID-W/MEALS 04/06/20 12/02/20 History Dexamethasone 0.5 mg PO DAILY 09/18/20 12/02/20 History Sulfamethox-Tmp 800-160Mg [Bactrim 1 tab PO MOWEFR 09/18/20 12/02/20 History DS 800-160 mg] dexAMETHasone [Dexamethasone] 3 mg PO DAILY 09/18/20 12/02/20 History Acetaminophen with Codeine 1 tab PO Q8H PRN 12/02/20 12/02/20 History [Tylenol w/Codeine #4 Tablet] Apixaban [Eliquis] 5 mg PO BID 12/02/20 12/02/20 History Cyanocobalamin (Vitamin B-12) 1,000 mcg PO DAILY 12/02/20 12/02/20 History [Vitamin B-12] Cyclobenzaprine [Flexeril] 10 mg PO Q8H PRN 12/02/20 12/02/20 History Allergies Allergy/AdvReac Type Severity Reaction Status Date / Time No Known Allergies Allergy Verified 12/02/20 09:44 Surgical - Exam Vital Signs Temp Pulse Resp BP Pulse Ox 101.5 F H 130 H 22 149/115 95 12/02/20 08:22 12/02/20 08:22 12/02/20 08:22 12/02/20 08:22 12/02/20 08:22 Results - Labs 12/05/20 06:14 12/05/20 06:14 Abnormal Lab Results - Last 24 Hours (Table) 12/05/20 12/05/20 Range/Units 06:14 06:14 RBC 3.67 L (4.40-5.60) X 10*6/uL Hgb 12.5 L (13.0-17.0) g/dL Hct 37.8 L (39.6-50.0) % MCV 103.0 H (80.0-97.0) fL MCH 34.1 H (27.0-32.0) pg Plt Count 110 L (140-440) X 10*3/uL BUN/Creatinine Ratio 35.71 H (12.00-20.00) Ratio Calcium 8.6 L (8.7-10.3) mg/dL Microbiology - Last 24 Hours (Table) 12/02/20 10:29 Blood Culture - Preliminary Blood No Growth after 72 hours 12/02/20 10:29 Blood Culture - Preliminary Blood No Growth after 72 hours Diabetes panel 12/05/20 Range/Units 06:14 Sodium 141 (135-145) mmol/L Potassium 5.3 (3.5-5.5) mmol/L Chloride 109 (96-109) mmol/L Carbon Dioxide 22.9 (21.6-31.8) mmol/L BUN 25.0 (9.0-27.0) mg/dL Creatinine 0.7 (0.6-1.5) mg/dL Glucose 93 (70-110) mg/dL Calcium 8.6 L (8.7-10.3) mg/dL Calcium panel 12/05/20 Range/Units 06:14 Calcium 8.6 L (8.7-10.3) mg/dL Pituitary panel 12/05/20 Range/Units 06:14 Sodium 141 (135-145) mmol/L Potassium 5.3 (3.5-5.5) mmol/L Chloride 109 (96-109) mmol/L Carbon Dioxide 22.9 (21.6-31.8) mmol/L BUN 25.0 (9.0-27.0) mg/dL Creatinine 0.7 (0.6-1.5) mg/dL Glucose 93 (70-110) mg/dL Calcium 8.6 L (8.7-10.3) mg/dL Adrenal panel 12/05/20 Range/Units 06:14 Sodium 141 (135-145) mmol/L Potassium 5.3 (3.5-5.5) mmol/L Chloride 109 (96-109) mmol/L Carbon Dioxide 22.9 (21.6-31.8) mmol/L BUN 25.0 (9.0-27.0) mg/dL Creatinine 0.7 (0.6-1.5) mg/dL Glucose 93 (70-110) mg/dL Calcium 8.6 L (8.7-10.3) mg/dL
--- NOTE | 2020-12-05 17:40 | US ---
EXAMINATION TYPE: US venous doppler duplex LE DATE OF EXAM: 12/05/2020 5:24 PM COMPARISON: US 09/18/2020 CLINICAL HISTORY: bilat leg swelling. SIDE PERFORMED: Bilateral TECHNIQUE: The lower extremity deep venous system is examined utilizing real time linear array sonog meek with graded compression, doppler sonography and color-flow sonography. VESSELS IMAGED: Common Femoral Vein Deep Femoral Vein Greater Saphenous Vein * Femoral Vein Popliteal Vein Small Saphenous Vein * Proximal Calf Veins (* superficial vessels) Right Leg: Negative for DVT Left Leg: Positive for DVT that appears chronic. There is stranding with thickened vessel tristan and thready flow throughout FV and pop vein. Involving the left common femoral and superficial femoral vein IMPRESSION: 1. Findings are compatible with DVT left lower extremity findings appear similar to the previous exam of 09/18/2020
[2020-12-05] MEDS: REMDESIVIR 100 MG in SODIUM CHLORIDE 0.9% 250 ML IVPB SCH (21:46)
--- NOTE | 2020-12-06 06:28 | PN ---
PROGRESS NOTE DATE OF SERVICE: 12/05/2020 REASON FOR FOLLOWUP: COVID-19 pneumonia. INTERVAL HISTORY: Patient is currently afebrile. Patient is breathing slightly comfortably. The patient denies having any chest pain. No shortness of breath or cough. No nausea, vomiting. No abdominal pain. No diarrhea. PHYSICAL EXAMINATION: Blood pressure is 129/97, pulse of 64, temperature 97.3, he is 96% 4 L nasal cannula. General description is a middle-aged male up in the bed in no distress. Respiratory system: Unlabored breathing, decreased intensity of breath sounds. No wheeze. HEART: S1, S2. Regular rate and rhythm. Abdomen soft, no tenderness. LABORATORY DATA: Hemoglobin 12.5, white count 6.5, BUN of 25, creatinine 0.7. IMPRESSION/PLAN: Patient with acute COVID-19 pneumonia in this patient who seemed to have shown clinical improvement currently on protocol including Eliquis, dexamethasone, Remdesivir, zinc and ascorbic acid. Slowly wean off his oxygen and monitor clinical course closely. MMODL / IJN: [id number] /
[2020-12-06] MEDS: PANTOPRAZOLE 40 MG TABLET PO SCH (08:29)
[2020-12-06] MEDS: CYANOCOBALAMIN 500 MCG TAB PO SCH (08:29)
[2020-12-06] MEDS: ZINC SULFATE 220 MG CAP PO SCH (08:29)
[2020-12-06] MEDS: ASCORBIC ACID 500 MG TAB PO SCH ×2 (08:29→21:05)
[2020-12-06] MEDS: METOPROLOL SUCCINATE (ER) 50 MG TAB.ER.24H PO SCH (08:29)
[2020-12-06] MEDS: APIXABAN 5 MG TAB PO SCH ×2 (08:29→21:05)
[2020-12-06] MEDS: dexAMETHasone 2 MG TAB PO SCH (08:29)
[2020-12-06] MEDS: SULFAMETHOX-TMP 800-160MG 1 EACH TAB PO SCH (08:30)
[2020-12-06] MEDS: FAMOTIDINE 20 MG TAB PO SCH ×2 (08:30→21:05)
[2020-12-06] MEDS: levETIRAcetam 500 MG TAB PO SCH ×2 (08:30→17:02)
--- NOTE | 2020-12-06 08:58 | P.ARTDOP ---
Arterial Doppler LOWER EXTREMITY ARTERIAL DOPPLER: DATE OF SERVICE: 12/04/2020 Reason for study: Cold extremities below the knee. Doppler waveforms: Multiphasic bilaterally throughout. Pulse volume recording: []. Pressure gradients: None. Ankle-brachial indices: Greater than 1 bilaterally. Toe brachial indices: [] on the right, [] on the left Impression: Normal study.
[2020-12-06] MEDS: REMDESIVIR 100 MG in SODIUM CHLORIDE 0.9% 250 ML IVPB SCH (13:53)
--- NOTE | 2020-12-06 15:37 | P.PN ---
Subjective Patient is historian and unable to provide much of the history. Patient was brought in by the family members because his getting progressively weak. Patient is clinically doing well and should be able to go home but the family is unable to pick him up today. Patient is found to have covid 19. Patient will be transfused with monoclonal antibody infusion. Patient does have history of Glioblastoma with metastasis. Patient is on prophylactic Decadron and Bactrim. Patient Covid symptoms has been going on for about a week patient was recently discharged from [facility]. 12/03/2020 Patient is desaturating without oxygen patient is pleasant in [place] of oxygen unable to provide much of history to me. 12/04/2020 patient remains on oxygen at 4 L patient has bilateral lower extremity is cold and clammy significant on the right side obtain an arterial Doppler patient does have pulses in both extremities with the Doppler. 12/05/2020 Patient remains on for discharge and clinically doing well but the has bilateral cold clammy limbs last for surgery is being consulted, or chill Doppler is still pending patient has still 2 more doses of Remdesivir. 12/06/2020 Patient had an arterial Doppler which is within normal limits also had a venous Doppler which showed chronic DVT and patient had a DVT for which patient is already on Eliquis. Patient Doesn't wear oxygen although saturating well 96% on 4 L will try to taper it down patient will need to go to subacute rehabitation possibly she a patient tomorrow to subacute rehab on probably 2-4 L of oxygen. Constitutional: Denied any fatigue denied any fever. Cardio vascular: denied any chest pain, palpitations Gastrointestinal denied any nausea vomiting Pulmonary: Denied any shortness of breath cough Neurologic denied any new focal deficits All inpatient medications were reviewed and appropriate changes in these medications as dictated in the interval history and assessment and plan. Objective - Vital Signs Vital signs: Vital Signs Temp 98.2 F 12/06/20 10:00 Pulse 63 12/06/20 10:00 Resp 16 12/06/20 10:00 BP 138/88 12/06/20 10:00 Pulse Ox 96 12/06/20 10:00 Intake & Output 12/05/20 12/06/20 12/06/20 18:59 06:59 18:59 Output Total 600 200 Balance -600 -200 Output: Urine 600 200 Other: Voiding Method Diaper - Exam PHYSICAL EXAMINATION: GENERAL: The patient is alert and oriented x3, not in any acute distress. Well developed, well nourished. HEENT: Pupils are round and equally reacting to light. EOMI. No scleral icterus. No conjunctival pallor. Normocephalic, atraumatic. No pharyngeal erythema. No thyromegaly. CARDIOVASCULAR: S1 and S2 present. No murmurs, rubs, or gallops. PULMONARY: Chest is clear to auscultation, no wheezing or crackles. ABDOMEN: Soft, nontender, nondistended, normoactive bowel sounds. No palpable organomegaly. MUSCULOSKELETAL: No joint swelling or deformity. EXTREMITIES: No cyanosis, clubbing, or pedal edema. Cold and clammy right extremity patient doesn't have any loss of hair in the right lower extremity NEUROLOGICAL: Gross neurological examination did not reveal any focal deficits. SKIN: No rashes. - Labs CBC & Chem 7: 12/05/20 06:14 12/05/20 06:14 Labs: Microbiology - Last 24 Hours (Table) 12/02/20 10:29 Blood Culture - Preliminary Blood No Growth after 96 hours 12/02/20 10:29 Blood Culture - Preliminary Blood No Growth after 96 hours Assessment and Plan Plan: Covid 19 infection, acute hypoxic respiratory failure secondary to Covid 19: Patient will be started on 6 mg of Decadron patient is presently on his of oxygen infectious disease evaluated the patient.. Patient is on multivitamins for covid -Glioblastoma multiforme a: Patient is a CT of the head here which showed remote infarct involving cortex and subcortical white matter, chronic diffuse white matter ischemic changes. Patient is on prophylactic Decadron, Keppra, Bactrim. -Gastroesophageal reflux disease -DVT of lower extremities doesn't have peripheral vascular disease continue with Eliquis -Hypertension -Sleep apnea -Patient is on anticoagulation for bilateral pulmonary embolism. - deconditioning patient will need placement in subacute rehabilitation-
[2020-12-06] MEDS: ATORVASTATIN 20 MG TAB PO SCH (17:02)
--- NOTE | 2020-12-06 22:55 | PN ---
PROGRESS NOTE DATE OF SERVICE: 12/06/2020 REASON FOR FOLLOWUP: COVID-19 pneumonia. INTERVAL HISTORY: The patient is currently afebrile. The patient is breathing comfortably. The patient is currently on 3 L nasal cannula. Denies having any chest pain or shortness of breath. He did have occasional cough. No sputum production. No abdominal pain or diarrhea. PHYSICAL EXAMINATION: Blood pressure 130/93, pulse of 62, temperature 97.9. He is 93% on 3 L nasal cannula. General description is a middle-aged male lying in bed in no distress. RESPIRATORY SYSTEM: Unlabored breathing with decreased intensity of breath sounds. No wheeze. HEART: S1, S2. Regular rate and rhythm. ABDOMEN: Soft. No tenderness. LABS: Hemoglobin is 10.5, white count 6.5, BUN of 25, creatinine 0.7. DIAGNOSTIC IMPRESSION AND PLAN: Patient with acute COVID-19 pneumonia, for which the patient is currently covered with remdesivir, dexamethasone zinc and ascorbic acid. To continue along with respiratory support. Monitor his clinical course closely. MMODL / IJN: [id number] /
[2020-12-07] MEDS: APIXABAN 5 MG TAB PO SCH ×2 (08:58→21:58)
[2020-12-07] MEDS: PANTOPRAZOLE 40 MG TABLET PO SCH (08:58)
[2020-12-07] MEDS: levETIRAcetam 500 MG TAB PO SCH ×2 (08:58→17:37)
[2020-12-07] MEDS: METOPROLOL SUCCINATE (ER) 50 MG TAB.ER.24H PO SCH (08:59)
[2020-12-07] MEDS: ASCORBIC ACID 500 MG TAB PO SCH ×2 (08:59→21:59)
[2020-12-07] MEDS: dexAMETHasone 2 MG TAB PO SCH (08:59)
[2020-12-07] MEDS: ZINC SULFATE 220 MG CAP PO SCH (08:59)
[2020-12-07] MEDS: FAMOTIDINE 20 MG TAB PO SCH ×2 (08:59→21:59)
[2020-12-07] MEDS: CYANOCOBALAMIN 500 MCG TAB PO SCH (08:59)
[2020-12-07] MEDS: REMDESIVIR 100 MG in SODIUM CHLORIDE 0.9% 250 ML IVPB SCH (13:03)
[2020-12-07 14:36] VITALS: BMI 29.4
--- NOTE | 2020-12-07 14:43 | P.DS ---
Providers Date of admission: 12/02/20 12:39 Attending physician: Claire La Consults: 12/03/20 15:58 Consult Physician Routine Consulting Provider: Wilberto Murphy Consult Reason/Comments: Covid Do you want consulting provider notified?: Yes 12/05/20 13:30 Consult Physician Routine Consulting Provider: Dannie Wong Consult Reason/Comments: PVD Do you want consulting provider notified?: Yes 12/05/20 16:53 Consult Physician Routine Consulting Provider: Jp Wong Consult Reason/Comments: bilat lower leg swelling Do you want consulting provider notified?: Already Contacted Primary care physician: Jesusita Erasto [facility] Course: Patient is historian and unable to provide much of the history. Patient was brought in by the family members because his getting progressively weak. Talya ent is clinically doing well and should be able to go home but the family is unable to pick him up today. Patient is found to have covid 19. Patient will be transfused with monoclonal antibody infusion. Patient does have history of Glioblastoma with metastasis. Patient is on prophylactic Decadron and Bactrim. Patient Covid symptoms has been going on for about a week patient was recently discharged from [facility]. 12/03/2020 Patient is desaturating without oxygen patient is pleasant in [place] of oxygen unable to provide much of history to me. 12/04/2020 patient remains on oxygen at 4 L patient has bilateral lower extremity is cold and clammy significant on the right side obtain an arterial Doppler patient does have pulses in both extremities with the Doppler. 12/05/2020 Patient remains on for discharge and clinically doing well but the has bilateral cold clammy limbs last for surgery is being consulted, or chill Doppler is still pending patient has still 2 more doses of Remdesivir. 12/06/2020 Patient had an arterial Doppler which is within normal limits also had a venous Doppler which showed chronic DVT and patient had a DVT for which patient is already on Eliquis. Patient Doesn't wear oxygen although saturating well 96% on 4 L will try to taper it down patient will need to go to subacute rehabitation possibly she a patient tomorrow to subacute rehab on probably 2-4 L of oxygen. 12/07/2020 Patient clinically doing well is on 2 L of ours and will require oxygen upon discharge patient is being discharged to subacute rehabilitation. This can be tapered and weaned off as an outpatient. Patient is already on none Decadron at home and patient will be resumed on home dose of Decadron presently patient is on 6 mg which will be discontinued. PHYSICAL EXAMINATION: GENERAL: The patient is alert and oriented x3, not in any acute distress. Well developed, well nourished. HEENT: Pupils are round and equally reacting to light. EOMI. No scleral icterus. No conjunctival pallor. Normocephalic, atraumatic. No pharyngeal erythema. No thyromegaly. CARDIOVASCULAR: S1 and S2 present. No murmurs, rubs, or gallops. PULMONARY: Chest is clear to auscultation, no wheezing or crackles. ABDOMEN: Soft, nontender, nondistended, normoactive bowel sounds. No palpable organomegaly. MUSCULOSKELETAL: No joint swelling or deformity. EXTREMITIES: No cyanosis, clubbing, or pedal edema. Cold and clammy right extremity patient doesn't have any loss of hair in the right lower extremity NEUROLOGICAL: Gross neurological examination did not reveal any focal deficits. SKIN: No rashes. Assessment and Plan Plan: Covid 19 infection, acute hypoxic respiratory failure secondary to Covid 19: Patient will be started on 6 mg of Decadron patient is presently on his of oxygen infectious disease evaluated the patient.. Patient is on multivitamins for covid -Glioblastoma multiforme a: Patient is a CT of the head here which showed remote infarct involving cortex and subcortical white matter, chronic diffuse white matter ischemic changes. Patient is on prophylactic Decadron, Keppra, Bactrim. -Gastroesophageal reflux disease -Chronic DVT of lower extremities doesn't have peripheral vascular disease continue with Eliquis -Hypertension -Sleep apnea -Patient is on anticoagulation for bilateral pulmonary embolism. - deconditioning patient patient is being discharged to subacute rehabilitation. Plan - Discharge Summary New Discharge Prescriptions: New Zinc Sulfate [Orazinc] 220 mg PO DAILY #20 cap Ascorbic Acid [Vitamin C] 500 mg PO BID #20 tab Continue Simvastatin 40 mg PO W/SUPPER Metoprolol Succinate (ER) [Toprol XL] 50 mg PO DAILY Docusate [Colace] 100 - 200 mg PO DAILY PRN PRN Reason: Constipation levETIRAcetam [Keppra] 1,000 mg PO BID-W/MEALS Omeprazole [PriLOSEC] 20 mg PO DAILY Sulfamethox-Tmp 800-160Mg [Bactrim DS 800-160 mg] 1 tab PO MOWEFR dexAMETHasone [Dexamethasone] 3 mg PO DAILY Dexamethasone 0.5 mg PO DAILY Cyanocobalamin (Vitamin B-12) [Vitamin B-12] 1,000 mcg PO DAILY Apixaban [Eliquis] 5 mg PO BID Cyclobenzaprine [Flexeril] 10 mg PO Q8H PRN PRN Reason: Muscle Pain Acetaminophen with Codeine [Tylenol w/Codeine #4 Tablet] 1 tab PO Q8H PRN PRN Reason: Pain Discontinued amLODIPine [Norvasc] 5 mg PO DAILY Discharge Medication List Metoprolol Succinate (ER) [Toprol XL] 50 mg PO DAILY 10/17/15 [History] Simvastatin 40 mg PO W/SUPPER 10/17/15 [History] Docusate [Colace] 100 - 200 mg PO DAILY PRN 04/06/20 [History] Omeprazole [PriLOSEC] 20 mg PO DAILY 04/06/20 [History] levETIRAcetam [Keppra] 1,000 mg PO BID-W/MEALS 04/06/20 [History] Dexamethasone 0.5 mg PO DAILY 09/18/20 [History] Sulfamethox-Tmp 800-160Mg [Bactrim DS 800-160 mg] 1 tab PO MOWEFR 09/18/20 [History] dexAMETHasone [Dexamethasone] 3 mg PO DAILY 09/18/20 [History] Acetaminophen with Codeine [Tylenol w/Codeine #4 Tablet] 1 tab PO Q8H PRN 12/02/20 [History] Apixaban [Eliquis] 5 mg PO BID 12/02/20 [History] Cyanocobalamin (Vitamin B-12) [Vitamin B-12] 1,000 mcg PO DAILY 12/02/20 [History] Cyclobenzaprine [Flexeril] 10 mg PO Q8H PRN 12/02/20 [History] Ascorbic Acid [Vitamin C] 500 mg PO BID #20 tab 12/07/20 [Rx] Zinc Sulfate [Orazinc] 220 mg PO DAILY #20 cap 12/07/20 [Rx] Follow up Appointment(s)/Referral(s): Jesusita Maurer MD [Primary Care Provider] - 1 Week Davin Olivera MD [STAFF PHYSICIAN] - 1 Week
[2020-12-07] MEDS: ATORVASTATIN 20 MG TAB PO SCH (17:37)
--- NOTE | 2020-12-07 18:52 | PN ---
PROGRESS NOTE DATE OF SERVICE: 12/07/2020 REASON FOR FOLLOWUP: COVID-19 pneumonia. INTERVAL HISTORY: The patient is currently afebrile. The patient is breathing comfortably. Still requiring supplemental oxygen. The patient denies having any chest pain or cough. No abdominal pain or diarrhea. PHYSICAL EXAMINATION: Blood pressure 136/100 with a pulse of 73, temperature 98.6. He is 94% on room air. General description is a middle-aged male lying in bed in no distress. RESPIRATORY SYSTEM: Unlabored breathing with decreased intensity of breath sounds. No wheeze. HEART: S1, S2. Regular rate and rhythm. ABDOMEN: Soft. No tenderness. LABS: Hemoglobin is 12.4, white count 6.59, BUN of 25, creatinine 0.7. Blood culture has been negative. DIAGNOSTIC IMPRESSION AND PLAN: Patient with acute COVID-19 pneumonia in this patient who has completed his remdesivir therapy and is currently on room air. A short course of zinc and ascorbic acid on discharge and close outpatient followup. MMODL / IJN: [id number] /
[2020-12-08] MEDS: levETIRAcetam 500 MG TAB PO SCH (09:31)
[2020-12-08] MEDS: ASCORBIC ACID 500 MG TAB PO SCH (09:31)
[2020-12-08] MEDS: dexAMETHasone 2 MG TAB PO SCH (09:32)
[2020-12-08] MEDS: PANTOPRAZOLE 40 MG TABLET PO SCH (09:32)
[2020-12-08] MEDS: APIXABAN 5 MG TAB PO SCH (09:32)
[2020-12-08] MEDS: CYANOCOBALAMIN 500 MCG TAB PO SCH (09:32)
[2020-12-08] MEDS: FAMOTIDINE 20 MG TAB PO SCH (09:32)
[2020-12-08] MEDS: ZINC SULFATE 220 MG CAP PO SCH (09:32)
[2020-12-08] MEDS: SULFAMETHOX-TMP 800-160MG 1 EACH TAB PO SCH (09:32)
[2020-12-08] MEDS: METOPROLOL SUCCINATE (ER) 50 MG TAB.ER.24H PO SCH (09:32)
[2020-12-08 09:44] VITALS: BP 152/119; PULSE 70; RESP 16; TEMP 98.5
--- NOTE | 2020-12-08 11:56 | P.DS ---
Providers Date of admission: 12/02/20 12:39 Expected date of discharge: 12/08/20 Attending physician: Claire La Consults: 12/03/20 15:58 Consult Physician Routine Consulting Provider: Wilberto Murphy Consult Reason/Comments: Covid Do you want consulting provider notified?: Yes 12/05/20 13:30 Consult Physician Routine Consulting Provider: Dannie Wong Consult Reason/Comments: PVD Do you want consulting provider notified?: Yes 12/05/20 16:53 Consult Physician Routine Consulting Provider: Jp Wong Consult Reason/Comments: bilat lower leg swelling Do you want consulting provider notified?: Already Contacted Primary care physician: Jesusita Maurer [facility] Course: Final diagnosis Covid 19 infection, acute hypoxic respiratory failure secondary to Covid 19: Patient will be started on 6 mg of Decadron patient is presently on his of oxygen infectious disease evaluated the patient.. Patient is on multivitamins for covid -Glioblastoma multiforme a: Patient is a CT of the head here which showed remote infarct involving cortex and subcortical white matter, chronic diffuse white matter ischemic changes. Patient is on prophylactic Decadron, Keppra, Bactrim. -Gastroesophageal reflux disease -Chronic DVT of lower extremities doesn't have peripheral vascular disease continue with Eliquis -Hypertension -Sleep apnea -Patient is on anticoagulation for bilateral pulmonary embolism. - deconditioning patient patient is being discharged to subacute rehabilitation. Discharge disposition Patient is being discharged in a stable condition with guarded prognosis to [facility] for continued PT/OT therapy. Patient will follow-up with Dr. Olivera in the outpatient setting upon discharge. Patient will also follow-up with pulmonary in the outpatient setting Dr. Maurer in 1-2 weeks. Total time taken is greater than 35 minutes. Hospital course Patient is historian and unable to provide much of the history. Patient was brought in by the family members because his getting progressively weak. Patient is clinically doing well and should be able to go home but the family is unable to pick him up today. Patient is found to have covid 19. Patient will b e transfused with monoclonal antibody infusion. Patient does have history of Glioblastoma with metastasis. Patient is on prophylactic Decadron and Bactrim. Patient Covid symptoms has been going on for about a week patient was recently discharged from [facility]. 12/03/2020 Patient is desaturating without oxygen patient is pleasant in [place] of oxygen unable to provide much of history to me. 12/04/2020 patient remains on oxygen at 4 L patient has bilateral lower extremity is cold and clammy significant on the right side obtain an arterial Doppler patient does have pulses in both extremities with the Doppler. 12/05/2020 Patient remains on for discharge and clinically doing well but the has bilateral cold clammy limbs last for surgery is being consulted, or chill Doppler is still pending patient has still 2 more doses of Remdesivir. 12/06/2020 Patient had an arterial Doppler which is within normal limits also had a venous Doppler which showed chronic DVT and patient had a DVT for which patient is already on Eliquis. Patient Doesn't wear oxygen although saturating well 96% on 4 L will try to taper it down patient will need to go to subacute rehabitation possibly she a patient tomorrow to subacute rehab on probably 2-4 L of oxygen. 12/07/2020 Patient clinically doing well is on 2 L of ours and will require oxygen upon discharge patient is being discharged to subacute rehabilitation. This can be tapered and weaned off as an outpatient. Patient is already on none Decadron at home and patient will be resumed on home dose of Decadron presently patient is on 6 mg which will be discontinued. 12/08/2020 Patient is seen this morning in follow-up maintained on 2 L via nasal cannula and is being discharged today to [facility]. Authorization has been obtained from insurance. No acute overnight issues. Currently no reports of chest pain, worsening shortness of breath, or palpitations. Patient is afebrile. No reports of nausea or vomiting and patient is tolerating diet. Patient will be going to [facility] today. PHYSICAL EXAMINATION: GENERAL: The patient is alert and oriented x3, not in any acute distress. Well developed, well nourished. HEENT: Pupils are round and equally reacting to light. EOMI. No scleral icterus. No conjunctival pallor. Normocephalic, atraumatic. No pharyngeal erythema. No thyromegaly. CARDIOVASCULAR: S1 and S2 present. No murmurs, rubs, or gallops. PULMONARY: Chest is clear to auscultation, no wheezing or crackles. ABDOMEN: Soft, nontender, nondistended, normoactive bowel sounds. No palpable organomegaly. MUSCULOSKELETAL: No joint swelling or deformity. EXTREMITIES: No cyanosis, clubbing, or pedal edema. Cold and clammy right extremity patient doesn't have any loss of hair in the right lower extremity NEUROLOGICAL: Gross neurological examination did not reveal any focal deficits. SKIN: No rashes. On exam vital signs are stable. Cardio S1, S2 are muffled. Respiratory system shows diminished breath sounds at the bases with no wheezing or rhonchi noted. Abdomen is soft and nontender. Nervous system shows diffuse weakness. Please refer to medication reconciliation sheet for a list of medications. Patient Condition at Discharge: Fair Plan - Discharge Summary New Discharge Prescriptions: New Zinc Sulfate [Orazinc] 220 mg PO DAILY #20 cap Ascorbic Acid [Vitamin C] 500 mg PO BID #20 tab Continue Simvastatin 40 mg PO W/SUPPER Metoprolol Succinate (ER) [Toprol XL] 50 mg PO DAILY Docusate [Colace] 100 - 200 mg PO DAILY PRN PRN Reason: Constipation levETIRAcetam [Keppra] 1,000 mg PO BID-W/MEALS Omeprazole [PriLOSEC] 20 mg PO DAILY Sulfamethox-Tmp 800-160Mg [Bactrim DS 800-160 mg] 1 tab PO MOWEFR dexAMETHasone [Dexamethasone] 3 mg PO DAILY Dexamethasone 0.5 mg PO DAILY Cyanocobalamin (Vitamin B-12) [Vitamin B-12] 1,000 mcg PO DAILY Apixaban [Eliquis] 5 mg PO BID Cyclobenzaprine [Flexeril] 10 mg PO Q8H PRN PRN Reason: Muscle Pain Acetaminophen with Codeine [Tylenol w/Codeine #4 Tablet] 1 tab PO Q8H PRN #10 tab PRN Reason: Pain Discontinued amLODIPine [Norvasc] 5 mg PO DAILY Discharge Medication List Metoprolol Succinate (ER) [Toprol XL] 50 mg PO DAILY 10/17/15 [History] Simvastatin 40 mg PO W/SUPPER 10/17/15 [History] Docusate [Colace] 100 - 200 mg PO DAILY PRN 04/06/20 [History] Omeprazole [PriLOSEC] 20 mg PO DAILY 04/06/20 [History] levETIRAcetam [Keppra] 1,000 mg PO BID-W/MEALS 04/06/20 [History] Dexamethasone 0.5 mg PO DAILY 09/18/20 [History] Sulfamethox-Tmp 800-160Mg [Bactrim DS 800-160 mg] 1 tab PO MOWEFR 09/18/20 [History] dexAMETHasone [Dexamethasone] 3 mg PO DAILY 09/18/20 [History] Apixaban [Eliquis] 5 mg PO BID 12/02/20 [History] Cyanocobalamin (Vitamin B-12) [Vitamin B-12] 1,000 mcg PO DAILY 12/02/20 [History] Cyclobenzaprine [Flexeril] 10 mg PO Q8H PRN 12/02/20 [History] Ascorbic Acid [Vitamin C] 500 mg PO BID #20 tab 12/07/20 [Rx] Zinc Sulfate [Orazinc] 220 mg PO DAILY #20 cap 12/07/20 [Rx] Acetaminophen with Codeine [Tylenol w/Codeine #4 Tablet] 1 tab PO Q8H PRN #10 tab 12/08/20 [Rx] Follow up Appointment(s)/Referral(s): Jesusita Maurer MD [Primary Care Provider] - 1 Week Davin Olivera MD [STAFF PHYSICIAN] - 1 Week Discharge Disposition: TRANSFER TO SNF/ECF
== END 2020-12-08 13:51 | DRG 177 ==
LOC: EC 08:19 → 4SSUR 12:39
PROVIDERS: ADMIT Internal Medicine; ATTEND Internal Medicine
PROC: XW033F6 Introduction of Bamlanivimab Monoclonal Antibody into Peripheral Vein, Percutaneous Approach, New Technology Group 6 (ICD-10-PCS; 2020-12-02)
PROC: XW033E5 Introduction of Remdesivir Anti-infective into Peripheral Vein, Percutaneous Approach, New Technology Group 5 (ICD-10-PCS; principal; 2020-12-03)
DX: U07.1 COVID-19 (principal); J12.82 Pneumonia due to coronavirus disease 2019; J96.01 Acute respiratory failure with hypoxia; I26.99 Other pulmonary embolism without acute cor pulmonale; C71.9 Malignant neoplasm of brain, unspecified; J98.11 Atelectasis; I10 Essential (primary) hypertension; K21.9 Gastro-esophageal reflux disease without esophagitis; Z92.21 Personal history of antineoplastic chemotherapy; Z92.3 Personal history of irradiation; Z87.891 Personal history of nicotine dependence; Z82.49 Family history of ischemic heart disease and other diseases of the circulatory system; Z79.01 Long term (current) use of anticoagulants; G47.30 Sleep apnea, unspecified; D72.810 Lymphocytopenia; I73.9 Peripheral vascular disease, unspecified
CPT/HCPCS: 36410; 36415; 70450; 71045; 76937; 80048; 80053; 81001; 82728; 83605; 83615; 83735; 84145; 84484; 85025; 85027; 85379; 85610; 85730; 86140; 87040; 87635; 93005; 93922; 93970; 94760; 96360; 96361; 99285